=== PATIENT | male | born 1965 | race Caucasian/White ===

== ENCOUNTER 2024-06-30 12:38 | Inpatient (IN) | payer OTHER ==
[2024-06-30 12:51] LABS: Glucose,Whole Blood 405 mg/dL (70-110)
[2024-06-30] MEDS: methylPREDNISolone SOD SUCCI 125 MG/2 ML VIAL IM ONE (12:52)
[2024-06-30] MEDS: ONDANSETRON 4 MG/2 ML VIAL IVP STA (12:52)
[2024-06-30] MEDS: IPRATROPIUM-ALBUTEROL 3 ML NEB INHALATION STA (12:57)
--- NOTE | 2024-06-30 13:00 | XR ---
EXAMINATION TYPE: XR chest 1V DATE OF EXAM: 06/30/2024 COMPARISON: NONE CLINICAL INDICATION: Male, 59 years old with shortness of breath, history of dyspnea; TECHNIQUE: Single frontal view of the chest is obtained. FINDINGS: Heart mildly enlarged. Diffuse interstitial and hazy bilateral airspace opacities. No sizable pleural effusion on the frontal view. IMPRESSION: Consider CHF with patchy pulmonary edema. [facility], Workstation: [facility], 06/30/2024 12:57 PM
[2024-06-30 13:04] LABS: ABG Base Excess -6.3 mmol/L; ABG HCO3 26 mmol/L (21-25); ABG Oxygen Saturation 99.9 % (94-97); ABG PO2 397 mmHg (83-108); ABG TCO2 28 mmol/L (19-24); Allen Test Performed? Yes
[2024-06-30 13:12] LABS: ABG PCO2 81 mmHg (35-45); ABG PH 7.11 (7.35-7.45)
[2024-06-30] MEDS: FUROSEMIDE 10 MG/ML 4 ML VIAL IV STA (13:15)
[2024-06-30 13:26] LABS: HCT 52.8 % (39.0-53.0); HGB 17.5 gm/dL (13.0-17.5); Hypochromasia Slight; MCH 31.8 pg (25.0-35.0); MCHC 33.3 g/dL (31.0-37.0); MCV 95.5 fL (80.0-100.0); Mean Platelet Volume 8.5; Platelet Count 450 k/uL (150-450); RBC 5.53 m/uL (4.30-5.90); RDW 13.7 % (11.5-15.5); WBC 13.6 k/uL (3.8-10.6)
--- NOTE | 2024-06-30 13:30 | P.HPIM ---
History of Present Illness 59-year-old male came in with complaints of shortness of breath going on for last few days along with orthopnea. Patient is morbidly obese denied any fever chills chest x-ray was done which is consistent with pulmonary edema. I do not have any other labs available ABGs consistent with hypercapnic respiratory failure patient is presently on BiPAP patient has pH of 7.11 pCO2 of 81 patient pCO2 is high as he is on BiPAP and his ABG is probably on BiPAP patient blood sugars are high as well other labs are still pending at this time. REVIEW OF SYSTEMS: All other systems are negative except those mentioned in the HPI PHYSICAL EXAMINATION: GENERAL: The patient is alert and oriented x3, morbidly obese, on BiPAP is in respiratory distress HEENT: Pupils are round and equally reacting to light. EOMI. No scleral icterus. No conjunctival pallor. Normocephalic, atraumatic. No pharyngeal erythema. No thyromegaly. CARDIOVASCULAR: S1 and S2 present. No murmurs, rubs, or gallops. PULMONARY: Chest is clear to auscultation, no wheezing or crackles. ABDOMEN: Soft, nontender, nondistended, normoactive bowel sounds. No palpable organomegaly. MUSCULOSKELETAL: No joint swelling or deformity. EXTREMITIES: No cyanosis, clubbing, patient has extensive bilateral pitting pedal edema NEUROLOGICAL: Gross neurological examination did not reveal any focal deficits. SKIN: No rashes. Assessment and plan -Acute hypercapnic respiratory failure probably secondary to obesity hypoventilation syndrome patient is on BiPAP which will be continued. -Acute hypoxic respiratory failure: Secondary to congestive heart failure with acute exacerbation I do not have any previous echocardiogram available. Patient will be started on IV Lasix will obtain a proBNP if that is elevated we will obtain an echocardiogram still awaiting some labs -Type 2 diabetes mellitus uncontrolled elevated blood sugars patient will be resumed on home regimen if appropriate along with sliding scale insulin. -Diabetic neuropathy -Hypertension -Hyperlipidemia DVT prophylaxis: Will be started on pharmacological DVT prophylaxis once the lab data is available Past Medical History Past Medical History: Atrial Fibrillation, Diabetes Mellitus, Hypertension Past Surgical History: No Surgical Hx Reported Past Psychological History: No Psychological Hx Reported Smoking Status: Never smoker Past Alcohol Use History: None Reported Past Drug Use History: None Reported Medications and Allergies Home Medications Medication Instructions Recorded Confirmed Type Aspirin EC [Ecotrin Low Dose] 81 mg PO DAILY 06/30/24 06/30/24 History Atorvastatin [Lipitor] 20 mg PO DAILY 06/30/24 06/30/24 History Cholecalciferol (Vitamin D3) 1,250 mcg PO Q7D 06/30/24 06/30/24 History [Vitamin D3 (1250 Mcg = 50,000 Iu)] Dulaglutide [Trulicity] 0.75 mg SQ Q7D 06/30/24 06/30/24 History Gabapentin [Neurontin] 300 mg PO DAILY 06/30/24 06/30/24 History Insulin Glargine,Hum.rec.anlog 40 units SQ BID 06/30/24 06/30/24 History [Lantus Solostar Pen] Loratadine [Claritin] 10 mg PO DAILY 06/30/24 06/30/24 History Losartan [Cozaar] 25 mg PO DAILY 06/30/24 06/30/24 History Pioglitazone [Actos] 15 mg PO DAILY 06/30/24 06/30/24 History atenoloL [Tenormin] 25 mg PO DAILY 06/30/24 06/30/24 History hydroCHLOROthiazide [Hydrodiuril] 25 mg PO DAILY 06/30/24 06/30/24 History metFORMIN HCL ER [Glucophage XR] 1,000 mg PO BID 06/30/24 06/30/24 History Allergies Allergy/AdvReac Type Severity Reaction Status Date / Time No Known Allergies Allergy Verified 06/30/24 12:48 Physical Exam Vitals: Vital Signs Temp Pulse Resp BP Pulse Ox FiO2 06/30/24 13:22 115 H 32 H 170/112 99 06/30/24 13:13 116 H 24 06/30/24 13:00 121 H 26 H 163/82 98 06/30/24 12:58 125 H 34 H 06/30/24 12:49 100 06/30/24 12:46 100 06/30/24 12:44 97 F L 131 H 36 H 160/103 95 Intake and Output 06/29/24 06/30/24 06/30/24 22:59 06:59 14:59 Other: Weight 151.953 kg Results CBC & Chem 7: 06/30/24 13:00 Labs: Abnormal Lab Results - Last 24 Hours (Table) 01/29/25 01/29/25 01/29/25 Range/Units 12:49 13:00 13:00 WBC 13.6 H (3.8-10.6) k/uL ABG pH 7.11 L* (7.35-7.45) ABG pCO2 81 H* (35-45) mmHg ABG pO2 397 H (83-108) mmHg ABG HCO3 26 H (21-25) mmol/L ABG Total CO2 28 H (19-24) mmol/L ABG O2 Saturation 99.9 H (94-97) % POC Glucose (mg/dL) 405 H (70-110) mg/dL
--- NOTE | 2024-06-30 13:36 | ED ---
General Adult HPI - General Chief complaint: Shortness of Breath Stated complaint: FELY Time Seen by Provider: 06/30/24 12:38 Source: patient, EMS, RN notes reviewed, old records reviewed Mode of arrival: EMS Limitations: no limitations - History of Present Illness Initial comments: Patient is a 59-year-old male who presents emergency department for shortness of breath. Has a history of hypertension and diabetes. Patient does not frequent our hospital. Apparently patient was at home when he was complaining of shortness of breath. He called EMS. Was extremely dyspneic. Saturating in the 70%'s with EMS. When he arrives, he is breathing through the CPAP mask and is unable to provide any history due to his increased work of breathing and you seem somewhat fatigued. He was then immediately placed on BiPAP. After 5 minutes on BiPAP, patient's breathing was improved and he was able to speak. He is not confused. Alert and oriented x 4. States he began having worsening sudden shortness of breath earlier today. Progressively got worse. He has noticed over the past few weeks he has had worsening lower extremity swelling as well. Also worsening exertional dyspnea. Also worsening orthopnea. No history of congestive heart failure. No chest pain. No abdominal pain, nausea, vomiting. Endorses a cough with some mild production. Denies any sick contacts. Presents for further evaluation at this time. - Related Data Home Medications Medication Instructions Recorded Confirmed Aspirin EC [Ecotrin Low Dose] 81 mg PO DAILY 06/30/24 06/30/24 Atorvastatin [Lipitor] 20 mg PO DAILY 06/30/24 06/30/24 Cholecalciferol (Vitamin D3) 1,250 mcg PO Q7D 06/30/24 06/30/24 [Vitamin D3 (1250 Mcg = 50,000 Iu)] Dulaglutide [Trulicity] 0.75 mg SQ Q7D 06/30/24 06/30/24 Gabapentin [Neurontin] 300 mg PO DAILY 06/30/24 06/30/24 Insulin Glargine,Hum.rec.anlog 40 units SQ BID 06/30/24 06/30/24 [Lantus Solostar Pen] Loratadine [Claritin] 10 mg PO DAILY 06/30/24 06/30/24 Losartan [Cozaar] 25 mg PO DAILY 06/30/24 06/30/24 Pioglitazone [Actos] 15 mg PO DAILY 06/30/24 06/30/24 atenoloL [Tenormin] 25 mg PO DAILY 06/30/24 06/30/24 hydroCHLOROthiazide [Hydrodiuril] 25 mg PO DAILY 06/30/24 06/30/24 metFORMIN HCL ER [Glucophage XR] 1,000 mg PO BID 06/30/24 06/30/24 Allergies Allergy/AdvReac Type Severity Reaction Status Date / Time No Known Allergies Allergy Verified 06/30/24 12:48 Review of Systems ROS Statement: Those systems with pertinent positive or pertinent negative responses have been documented in the HPI. Review of Systems: CONST: Denies fever EYES: Denies blurry vision ENT: Denies nasal congestion C/V: Denies Chest pain RESP: Endorses dyspnea GI: Denies abdominal pain : Denies dysuria SKIN: Denies rash. MSK: Denies joint pain. NEURO: Denies headache ROS Other: All systems not noted in ROS Statement are negative. Past Medical History Past Medical History: Atrial Fibrillation, Diabetes Mellitus, Hypertension Past Surgical History: No Surgical Hx Reported Past Psychological History: No Psychological Hx Reported Smoking Status: Never smoker Past Alcohol Use History: None Reported Past Drug Use History: None Reported General Exam - General Exam Comments Initial Comments: General: No respiratory distress. HEAD: Normal with no signs of head trauma. EYES: PERRLA, EOMI, conjunctiva normal, no discharge. ENT: Hearing grossly intact, normal oropharynx.. RESPIRATORY: Some mildly coarse breath sounds bilaterally with maybe some slight wheezing. Hypoxic with increased work of breathing. C/V: Tachycardic with a regular rhythm. S1 and S2 auscultated. Significant bilateral lower extremity peripheral edema. Peripheral pulses are 2+ intact throughout. ABD: Abd is soft, nontender, nondistended EXT: Normal range of motion, no obvious deformity. Patient has a right ankle monitor. SKIN: No rashes or lesions observed on exposed skin. NEURO: Alert and oriented x 4. No focal deficits. GCS of 15. Limitations: no limitations Course Vital Signs 06/30/24 06/30/24 06/30/24 12:44 12:46 12:49 Temperature 97 F L Pulse Rate 131 H Respiratory 36 H Rate Blood Pressure 160/103 O2 Sat by Pulse 95 Oximetry Fraction of 100 100 Inspired Oxygen (FIO2) 06/30/24 06/30/2425 12:58 13:00 13:13 Temperature Pulse Rate 125 H 121 H 116 H Respiratory 34 H 26 H 24 Rate Blood Pressure 163/82 O2 Sat by Pulse 98 Oximetry Fraction of Inspired Oxygen (FIO2) 06/30/24 06/30/24 06/30/24 13:22 15:08 15:09 Temperature Pulse Rate 115 H 108 H Respiratory 32 H 26 H Rate Blood Pressure 170/112 155/71 O2 Sat by Pulse 99 97 Oximetry Fraction of 60 Inspired Oxygen (FIO2) 06/30/24 06/30/24 15:30 16:30 Temperature Pulse Rate 99 82 Respiratory 25 H 18 Rate Blood Pressure 155/71 155/95 O2 Sat by Pulse 99 97 Oximetry Fraction of Inspired Oxygen (FIO2) Medical Decision Making - Medical Decision Making Was pt. sent in by a medical professional or institution (, PA, MANAGER OF PRODUCT, urgent care, hospital, or longterm...) When possible be specific @ -No Did you speak to anyone other than the patient for history (EMS, parent, family, police, friend...)? What history was obtained from this source @ -No Did you review nursing and triage notes (agree or disagree)? Why? @ -I reviewed and agree with nursing and triage notes Were old charts reviewed (outside hosp., previous admission, EMS record, old EKG, old radiological studies, urgent care reports/EKG's, longterm records)? Report findings @ -Reviewed medication list from pharmacy. Differential Diagnosis (chest pain, altered mental status, abdominal pain women, abdominal pain men, vaginal bleeding, weakness, fever, dyspnea, syncope, headache, dizziness, GI bleed, back pain, seizure, CVA, palpatations, mental health, musculoskeletal)? @ -Differential Dyspnea: Coronary syndrome, arrhythmia, tamponade, asthma, COPD, pulmonary embolism, pneumonia, pneumothorax, pulmonary effusion, anaphylaxis, diabetic ketoacidosis, flailed chest, pulmonary contusion, diaphragmatic rupture, anemia, neuromuscular, this is not meant to be an all-inclusive list. EKG interpreted by me (3pts min.). @ -As above X-rays interpreted by me (1pt min.). @ -Chest x-ray shows bilateral pulmonary vascular congestion. CT interpreted by me (1pt min.). @ -CT PE negative for pulmonary embolism. U/S interpreted by me (1pt. min.). @ -None done What testing was considered but not performed or refused? (CT, X-rays, U/S, labs)? Why? @ -None What meds were considered but not given or refused? Why? @ -None Did you discuss the management of the patient with other professionals (professionals i.e. , PA, MANAGER OF PRODUCT, lab, RT, psych nurse, logging worker, customer service technician, teacher, chief accounting officer, corrections caseworker)? Give summary @ -Discussed case with Dr. Rodgers ICU who accepted the patient was in agreement the plan. Discussed the case with admitting team, city call Dr. Aguilar after the admission. Was smoking cessation discussed for >3mins.? @ -No Was critical care preformed (if so, how long)? @ -Yes, 41-minute Were there social determinants of health that impacted care today? How? (Homelessness, low income, unemployed, alcoholism, drug addiction, transportation, low edu. Level, literacy, decrease access to med. care, fpc, rehab)? @ -No Was there de-escalation of care discussed even if they declined (Discuss DNR or withdrawal of care, Hospice)? DNR status @ -No What co-morbidities impacted this encounter? (DM, HTN, Smoking, COPD, CAD, Cancer, CVA, ARF, Chemo, Hep., AIDS, mental health diagnosis, sleep apnea, morbid obesity)? @ -Hypertension, diabetes Was patient admitted / discharged? Hospital course, mention meds given and route, prescriptions, significant lab abnormalities, going to OR and other pertinent info. @ -Patient presents with hypoxic respiratory failure that seems to be acute. Patient states it suddenly got worse today. Clinically he is presenting with his CHF exacerbation. Was immediately transitioned to BiPAP which improved the patient's respiratory status as well as mental status as he was extremely short of breath and unable to communicate but now he has able to communicate appropriately. We will obtain cardiopulmonary workup. Will continue with BiPAP. Initially upon presentation as we had no history of the patient he did have some mild wheezing and was administered IV steroids as well as breathing treatment. 1 view chest x-ray revealed bilateral pulmonary vascular congestion, making CHF more likely for the patient. We will obtain cardiopulmonary workup. EKG shows sinus tachycardia with no obvious acute process otherwise.Chest x-ray shows pulmonary vascular congestion concerning for CHF history of above. Laboratory studies returned remarkable for mild leukocytosis of 13 which is likely reactive. Patient's ABG does show hypercapnic respiratory failure with a pCO2 of 81 and a pH of 7.11. Lactic acid is elevated to 4.8. Troponin is elevated to 0.062, likely secondary to the prolonged hypoxia. BNP is elevated for the patient at 1250. Viral swabs negative. D-dimer is elevated. CT PE was ordered and was negative for pulmonary embolism. I discussed the case with ICU, Dr. Rodgers who accept the patient to the ICU. I discussed the case with admitting team, Dr. Aguilar who is in agreement the plan. Patient started on IV Lasix therapy for CHF which is new onset. Echo ordered. Patient given aspirin for the elevated troponin. Patient was in agreement this plan. He is doing improved at this time, work of breathing is improved as it is patient's hypoxia. Undiagnosed new problem with uncertain prognosis? @ -No Drug Therapy requiring intensive monitoring for toxicity (Heparin, Nitro, Insulin, Cardizem)? @ -No Were any procedures done? @ -No Diagnosis/symptom? @ -Acute hypoxic, hypercapnic respiratory failure secondary to new onset CHF, elevated troponin Acute, or Chronic, or Acute on Chronic? @ -Acute Uncomplicated (without systemic symptoms) or Complicated (systemic symptoms)? @ -Complicated Side effects of treatment? @ -None Exacerbation, Progression, or Severe Exacerbation] @ -No Poses a threat to life or bodily function? @ -Yes - Lab Data Result diagrams: 06/30/24 13:00 06/30/24 13:00 Lab Results 06/30/24 06/30/24 06/30/24 Range/Units 12:49 13:00 13:00 WBC 13.6 H (3.8-10.6) k/uL RBC 5.53 (4.30-5.90) m/uL Hgb 17.5 (13.0-17.5) gm/dL Hct 52.8 (39.0-53.0) % MCV 95.5 (80.0-100.0) fL MCH 31.8 (25.0-35.0) pg MCHC 33.3 (31.0-37.0) g/dL RDW 13.7 (11.5-15.5) % Plt Count 450 (150-450) k/uL MPV 8.5 Neutrophils % (Manual) 49 % Band Neuts % (Manual) 1 % Lymphocytes % (Manual) 42 % Monocytes % (Manual) 7 % Eosinophils % (Manual) 3 % Neutrophils # (Manual) 6.80 (1.3-7.7) k/uL Lymphocytes # (Manual) 5.71 H (1.0-4.8) k/uL Monocytes # (Manual) 0.95 (0-1.0) k/uL Eosinophils # (Manual) 0.41 (0-0.7) k/uL Nucleated RBCs 0 (0-0) /100 WBC Manual Slide Review Performed Hypochromasia Slight PT 11.1 (10.0-12.5) sec INR 1.0 (<1.2) APTT 22.5 (22.0-30.0) sec D-Dimer 1.03 H (<0.60) mg/L FEU Sample Site ABG pH (7.35-7.45) ABG pCO2 (35-45) mmHg ABG pO2 (83-108) mmHg ABG HCO3 (21-25) mmol/L ABG Total CO2 (19-24) mmol/L ABG O2 Saturation (94-97) % ABG Base Excess mmol/L Mikie Test Hemoglobin (13.0-17.5) gm/dL FiO2 % Sodium (137-145) mmol/L Potassium (3.5-5.1) mmol/L Chloride (98-107) mmol/L Carbon Dioxide (22-30) mmol/L Anion Gap mmol/L BUN (9-20) mg/dL Creatinine (0.66-1.25) mg/dL Est GFR (CKD-EPI)AfAm (>60 ml/min/1.73 sqM) Est GFR (CKD-EPI)NonAf (>60 ml/min/1.73 sqM) Glucose (74-99) mg/dL POC Glucose (mg/dL) 405 H (70-110) mg/dL POC Glu [employer] Utility Worker ID Doretha Vanegas Lactic Ac Sepsis Rflx Plasma Lactic Acid Jaime (0.7-2.0) mmol/L Calcium (8.4-10.2) mg/dL Magnesium (1.6-2.3) mg/dL Total Bilirubin (0.2-1.3) mg/dL AST (17-59) U/L ALT (4-49) U/L Alkaline Phosphatase (38-126) U/L Troponin I (0.000-0.034) ng/mL NT-Pro-B Natriuret Pep pg/mL Total Protein (6.3-8.2) g/dL Albumin (3.5-5.0) g/dL Influenza Type A (PCR) (Not Detectd) Influenza Type B (PCR) (Not Detectd) RSV (PCR) (Not Detectd) SARS-CoV-2 (PCR) (Not Detectd) 06/30/24 06/30/24 06/30/24 Range/Units 13:00 13:00 13:00 WBC (3.8-10.6) k/uL RBC (4.30-5.90) m/uL Hgb (13.0-17.5) gm/dL Hct (39.0-53.0) % MCV (80.0-100.0) fL MCH (25.0-35.0) pg MCHC (31.0-37.0) g/dL RDW (11.5-15.5) % Plt Count (150-450) k/uL MPV Neutrophils % (Manual) % Band Neuts % (Manual) % Lymphocytes % (Manual) % Monocytes % (Manual) % Eosinophils % (Manual) % Neutrophils # (Manual) (1.3-7.7) k/uL Lymphocytes # (Manual) (1.0-4.8) k/uL Monocytes # (Manual) (0-1.0) k/uL Eosinophils # (Manual) (0-0.7) k/uL Nucleated RBCs (0-0) /100 WBC Manual Slide Review Hypochromasia PT (10.0-12.5) sec INR (<1.2) APTT (22.0-30.0) sec D-Dimer (<0.60) mg/L FEU Sample Site ABG pH (7.35-7.45) ABG pCO2 (35-45) mmHg ABG pO2 (83-108) mmHg ABG HCO3 (21-25) mmol/L ABG Total CO2 (19-24) mmol/L ABG O2 Saturation (94-97) % ABG Base Excess mmol/L Mikie Test Hemoglobin (13.0-17.5) gm/dL FiO2 % Sodium 136 L (137-145) mmol/L Potassium 4.2 (3.5-5.1) mmol/L Chloride 100 (98-107) mmol/L Carbon Dioxide 23 (22-30) mmol/L Anion Gap 13 mmol/L BUN 10 (9-20) mg/dL Creatinine 0.73 (0.66-1.25) mg/dL Est GFR (CKD-EPI)AfAm >90 (>60 ml/min/1.73 sqM) Est GFR (CKD-EPI)NonAf >90 (>60 ml/min/1.73 sqM) Glucose 485 H (74-99) mg/dL POC Glucose (mg/dL) (70-110) mg/dL POC Glu [employer] Utility Worker ID Lactic Ac Sepsis Rflx Plasma Lactic Acid Jaime 4.8 H* (0.7-2.0) mmol/L Calcium 8.6 (8.4-10.2) mg/dL Magnesium 1.7 (1.6-2.3) mg/dL Total Bilirubin 0.7 (0.2-1.3) mg/dL AST 44 (17-59) U/L ALT 36 (4-49) U/L Alkaline Phosphatase 105 (38-126) U/L Troponin I 0.062 H* (0.000-0.034) ng/mL NT-Pro-B Natriuret Pep 1250 pg/mL Total Protein 6.8 (6.3-8.2) g/dL Albumin 4.1 (3.5-5.0) g/dL Influenza Type A (PCR) (Not Detectd) Influenza Type B (PCR) (Not Detectd) RSV (PCR) (Not Detectd) SARS-CoV-2 (PCR) (Not Detectd) 06/30/24 06/30/24 06/30/24 Range/Units 13:00 13:00 13:39 WBC (3.8-10.6) k/uL RBC (4.30-5.90) m/uL Hgb (13.0-17.5) gm/dL Hct (39.0-53.0) % MCV (80.0-100.0) fL MCH (25.0-35.0) pg MCHC (31.0-37.0) g/dL RDW (11.5-15.5) % Plt Count (150-450) k/uL MPV Neutrophils % (Manual) % Band Neuts % (Manual) % Lymphocytes % (Manual) % Monocytes % (Manual) % Eosinophils % (Manual) % Neutrophils # (Manual) (1.3-7.7) k/uL Lymphocytes # (Manual) (1.0-4.8) k/uL Monocytes # (Manual) (0-1.0) k/uL Eosinophils # (Manual) (0-0.7) k/uL Nucleated RBCs (0-0) /100 WBC Manual Slide Review Hypochromasia PT (10.0-12.5) sec INR (<1.2) APTT (22.0-30.0) sec D-Dimer (<0.60) mg/L FEU Sample Site Right Radial ABG pH 7.11 L* (7.35-7.45) ABG pCO2 81 H* (35-45) mmHg ABG pO2 397 H (83-108) mmHg ABG HCO3 26 H (21-25) mmol/L ABG Total CO2 28 H (19-24) mmol/L ABG O2 Saturation 99.9 H (94-97) % ABG Base Excess -6.3 mmol/L Mikie Test Yes Hemoglobin 17.4 (13.0-17.5) gm/dL FiO2 100 % Sodium (137-145) mmol/L Potassium (3.5-5.1) mmol/L Chloride (98-107) mmol/L Carbon Dioxide (22-30) mmol/L Anion Gap mmol/L BUN (9-20) mg/dL Creatinine (0.66-1.25) mg/dL Est GFR (CKD-EPI)AfAm (>60 ml/min/1.73 sqM) Est GFR (CKD-EPI)NonAf (>60 ml/min/1.73 sqM) Glucose (74-99) mg/dL POC Glucose (mg/dL) (70-110) mg/dL POC Glu [employer] Utility Worker ID Lactic Ac Sepsis Rflx Y Plasma Lactic Acid Jaime (0.7-2.0) mmol/L Calcium (8.4-10.2) mg/dL Magnesium (1.6-2.3) mg/dL Total Bilirubin (0.2-1.3) mg/dL AST (17-59) U/L ALT (4-49) U/L Alkaline Phosphatase (38-126) U/L Troponin I (0.000-0.034) ng/mL NT-Pro-B Natriuret Pep pg/mL Total Protein (6.3-8.2) g/dL Albumin (3.5-5.0) g/dL Influenza Type A (PCR) Not Detected (Not Detectd) Influenza Type B (PCR) Not Detected (Not Detectd) RSV (PCR) Not Detected (Not Detectd) SARS-CoV-2 (PCR) Not Detected (Not Detectd) - EKG Data -: EKG Interpreted by Me EKG Comments: 12-lead Electrocardiogram Interpretation Note EKG was reviewed and interpreted by myself. 12-lead ECG performed at 1245 is interpreted by me as revealing tachycardia with PVCs at a rate of 130 beats per minute. Jones is normal. UT interval is 149 ms, QRS duration is 112 ms, QTc is 386 ms.. There were no ST or T wave abnormalities to suggest myocardial ischemia or injury. R wave progression across the precordium was mildly delayed. By my interpretation this EKG is non-diagnostic for acute ischemia. Critical Care Time Critical Care Time: Yes Total Critical Care Time: 41 Disposition Clinical Impression: Congestive heart failure, Hypercapnic respiratory failure, Hypoxic respiratory failure, Elevated troponin, BiPAP (biphasic positive airway pressure) dependence Disposition: ADMITTED IP TO THIS HOSP Condition: Serious Time of Disposition: 16:30
[2024-06-30 13:38] LABS: Partial Thromboplastin Time 22.5 sec (22.0-30.0); Prothrombin Time 11.1 sec (10.0-12.5)
[2024-06-30 13:40] LABS: ALT 36 U/L (4-49); AST 44 U/L (17-59); African American GFR (CKD) >90 (>60 ml/min/1.73 sqM); Albumin 4.1 g/dL (3.5-5.0); Alkaline Phosphatase 105 U/L (38-126); Anion Gap 13 mmol/L; Blood Urea Nitrogen 10 mg/dL (9-20); Calcium 8.6 mg/dL (8.4-10.2); Carbon Dioxide 23 mmol/L (22-30); Chloride 100 mmol/L (98-107); Glucose 485 mg/dL (74-99); Magnesium 1.7 mg/dL (1.6-2.3); Non-African American GFR(CKD) >90 (>60 ml/min/1.73 sqM); Potassium 4.2 mmol/L (3.5-5.1); Sodium 136 mmol/L (137-145); Total Bilirubin 0.7 mg/dL (0.2-1.3); Total Protein 6.8 g/dL (6.3-8.2)
[2024-06-30 13:47] LABS: NT-Pro-B-Type Natriuretic Pept 1250 pg/mL
[2024-06-30 13:53] LABS: Influenza A Not Detected (Not Detectd); Influenza B Not Detected (Not Detectd); RSV Not Detected (Not Detectd)
[2024-06-30 13:59] LABS: Band Neutrophils % 1 %; Eosinophils # (M) 0.41 k/uL (0-0.7); Lymphocytes # (M) 5.71 k/uL (1.0-4.8); Monocytes # (M) 0.95 k/uL (0-1.0); Neutrophils % (M) 49 %; Nucleated Red Blood Cells 0 /100 WBC (0-0); Total Cells Counted 200
[2024-06-30] MEDS: ASPIRIN 81 MG PO SCH (14:53)
[2024-06-30] MEDS: atenoloL 25 MG TAB PO SCH (14:58)
[2024-06-30] MEDS: ASPIRIN 81 MG PO STA (15:00)
--- NOTE | 2024-06-30 16:23 | CT ---
EXAMINATION TYPE: CT chest angio for PE DATE OF EXAM: 06/30/2024 COMPARISON: None CLINICAL INDICATION: Male, 59 years old with history of eval for PE; PHH, Elaluation for PE. Pt on Bi pap., SOB or PAIN TECHNIQUE: Ct angiogram of the chest performed with with IV Contrast, patient injected with 100 ml mL of Isovue 370. MIP images are created and reviewed. 3-D postprocessing was performed. CT DLP: 1279.[address] CTDI: mGy Automated exposure control for dose reduction was used. FINDINGS: There are multiple innumerable scattered groundglass opacities throughout both lungs raising the ques tion of pulmonary edema or possibly an infectious process such as COVID pneumonia.. There is a focal opacity in the left lower lobe posteriorly which could be secondary to atelectasis. There is no pleural effusion or pneumothorax. The great vessels chest are normal and is no mediastinal, hilar or axillary adenopathy. There are no filling defects within the pulmonary arterial circulation to suggest pulmonary embolism. Limited scanning through the upper abdomen reveals porcelain gallbladder and cholelithiasis. There are no focal osseous abnormalities. IMPRESSION: 1. No evidence of pulmonary embolism. 2. Scattered diffuse groundglass opacities raising the question of pulmonary edema or pneumonia, poss ibly COVID pneumonia. 3. Cholelithiasis and porcelain gallbladder [facility] [place], , 06/30/2024 4:21 PM
--- NOTE | 2024-06-30 16:45 | P.CNPUL ---
History of Present Illness Consult date: 06/30/24 Reason for consult: dyspnea History of present illness: This is a 59-year-old male patient, morbidly obese, known history of diabetes mellitus hypertension and hyperlipidemia, presents to the hospital because of acute worsening shortness of breath and the patient was found to be in acute pulmonary edema. The patient was significantly short of breath at the time of admission and immediately the patient was placed on a BiPAP. Initial blood gas while on the BiPAP showed a pH of 7.11 with a pCO2 of 81 and pO2 of 397 this was on FiO2 100% with pressures of 14/5. Noted the patient was quite hypertensive at time of admission, initial blood pressure was as high as 170/112. Subsequently, the pressure dropped. The patient was given IV Lasix with excellent diuresis. He seems to be much more comfortable at this point in time. He is able to communicate. His respiratory rate also improved while being on the BiPAP and current respiratory rate is in the mid 20s. No altered mentation. Awake and alert and communicating. Denies having any chest pain. His proBNP level was 1250. Troponin was 0.06. Electrolytes are all within normal limits. There was a cause of 13.6 with a hemoglobin 13.5 and a platelet count of 450. Denies having any chest pain. No pleurisy. No hemoptysis. He has developed increased lower extremity edema. He has been incarcerated for a total of 17 years and currently he is on parole. CT angiogram was also done and showed no evidence of any pulm embolism. There was scattered diffuse groundglass pulmonar y opacities consistent with pulmonary edema. 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 Echocardiogram was ordered. The patient is currently on IV Lasix. Review of Systems Constitutional: Reports weight gain Eyes: denies as per HPI, denies blurred vision, denies bulging eye, denies decreased vision, denies diplopia, denies discharge, denies dry eye, denies irritation, denies itching, denies pain, denies photophobia, denies loss of peripheral vision, denies loss of vision, denies tunnel vision/blind spots Ears: deny: decreased hearing, ear discharge, earache, tinnitus Ears, nose, mouth and throat: Reports as per HPI Breasts: absent: as per HPI, gynecomastia Cardiovascular: Reports decreased exercise tolerance, Reports dyspnea on exertion, Reports leg edema, Reports shortness of breath Respiratory: Reports as per HPI, Reports snoring Gastrointestinal: Reports as per HPI Genitourinary: Reports as per HPI Musculoskeletal: Reports as per HPI Musculoskeletal: bilateral: ankle swelling, absent: ankle pain, ankle stiffness, as per HPI, elbow pain, elbow stiffness, elbow swelling, foot pain, foot stiffness, foot swelling, hand pain, hand stiffness, hand swelling, hip pain, hip stiffness, hip swelling, knee pain, knee stiffness, knee swelling, shoulder pain, shoulder stiffness, shoulder swelling, wrist pain, wrist stiffness, wrist swelling Integumentary: Reports as per HPI Neurological: Reports as per HPI Psychiatric: Reports as per HPI Endocrine: Reports as per HPI Hematologic/Lymphatic: Reports as per HPI Allergic/Immunologic: Reports as per HPI Past Medical History Past Medical History: Diabetes Mellitus, Hyperlipidemia, Hypertension Past Surgical History: No Surgical Hx Reported Past Psychological History: No Psychological Hx Reported Smoking Status: Never smoker Past Alcohol Use History: None Reported Past Drug Use History: None Reported Medications and Allergies Home Medications Medication Instructions Recorded Confirmed Type Aspirin EC [Ecotrin Low Dose] 81 mg PO DAILY 06/30/24 06/30/24 History Atorvastatin [Lipitor] 20 mg PO DAILY 06/30/24 06/30/24 History Cholecalciferol (Vitamin D3) 1,250 mcg PO Q7D 06/30/24 06/30/24 History [Vitamin D3 (1250 Mcg = 50,000 Iu)] Dulaglutide [Trulicity] 0.75 mg SQ Q7D 06/30/24 06/30/24 History Gabapentin [Neurontin] 300 mg PO DAILY 06/30/24 06/30/24 History Insulin Glargine,Hum.rec.anlog 40 units SQ BID 06/30/24 06/30/24 History [Lantus Solostar Pen] Loratadine [Claritin] 10 mg PO DAILY 06/30/24 06/30/24 History Losartan [Cozaar] 25 mg PO DAILY 06/30/24 06/30/24 History Pioglitazone [Actos] 15 mg PO DAILY 06/30/24 06/30/24 History atenoloL [Tenormin] 25 mg PO DAILY 06/30/24 06/30/24 History hydroCHLOROthiazide [Hydrodiuril] 25 mg PO DAILY 06/30/24 06/30/24 History metFORMIN HCL ER [Glucophage XR] 1,000 mg PO BID 06/30/24 06/30/24 History Allergies Allergy/AdvReac Type Severity Reaction Status Date / Time No Known Allergies Allergy Verified 06/30/24 12:48 Physical Exam Vitals: Vital Signs Temp Pulse Resp BP Pulse Ox FiO2 06/30/24 15:09 60 06/30/24 15:08 108 H 26 H 155/71 97 06/30/24 13:22 115 H 32 H 170/112 99 06/30/24 13:13 116 H 24 06/30/24 13:00 121 H 26 H 163/82 98 06/30/24 12:58 125 H 34 H 06/30/24 12:49 100 06/30/24 12:46 100 06/30/24 12:44 97 F L 131 H 36 H 160/103 95 Intake and Output 06/30/24 06/30/24 06/30/24 06:59 14:59 22:59 Other: Weight 151.953 kg The patient morbidly obese, mild degree of respiratory stress while on a BiPAP. Able to tolerate the BiPAP reasonably well. No altered mentation. Head exam is unremarkable. No scleral icterus or corneal arcus noted. Neck is without jugular venous distension, thyromegaly, or carotid bruits. Carotid upstrokes are brisk bilaterally. Lungs diminished breath sound bilateral lung with bibasilar crackles. Cardiac exam reveals the PMI to be normally sized and situated. Rhythm is regular. First and second heart sounds normal. No murmurs, rubs or gallops. Abdominal exam reveals normal bowel sounds, no masses, no organomegaly and no aortic enlargement. Extremities are showing increased edema lower extremities bilaterally and both femoral and pedal pulses are normal. Examination of the skin revealed no evidence of significant rashes, suspicious appearing nevi or other concerning lesions. Neurologically, the patient is awake and alert and the patient does not have any focal neurological deficit. Cranial nerves are essentially intact. Results - Laboratory Findings CBC and BMP: 06/30/24 13:00 06/30/24 13:00 ABG ABG pH 7.11 (7.35-7.45) L* 06/30/24 13:00 ABG pCO2 81 mmHg (35-45) H* 06/30/24 13:00 ABG pO2 397 mmHg (83-108) H 06/30/24 13:00 ABG O2 Saturation 99.9 % (94-97) H 06/30/24 13:00 PT/INR, D-dimer PT 11.1 sec (10.0-12.5) 06/30/24 13:00 INR 1.0 (<1.2) 06/30/24 13:00 D-Dimer 1.03 mg/L FEU (<0.60) H 06/30/24 13:00 Abnormal lab findings: Abnormal Labs 06/30/24 06/30/24 06/30/24 12:49 13:00 13:00 WBC 13.6 H Lymphocytes # (Manual) 5.71 H D-Dimer 1.03 H ABG pH ABG pCO2 ABG pO2 ABG HCO3 ABG Total CO2 ABG O2 Saturation Sodium Glucose POC Glucose (mg/dL) 405 H Plasma Lactic Acid Jaime Troponin I 06/30/24 06/30/24 06/30/24 13:00 13:00 13:00 WBC Lymphocytes # (Manual) D-Dimer ABG pH ABG pCO2 ABG pO2 ABG HCO3 ABG Total CO2 ABG O2 Saturation Sodium 136 L Glucose 485 H POC Glucose (mg/dL) Plasma Lactic Acid Jaime 4.8 H* Troponin I 0.062 H* 06/30/24 13:00 WBC Lymphocytes # (Manual) D-Dimer ABG pH 7.11 L* ABG pCO2 81 H* ABG pO2 397 H ABG HCO3 26 H ABG Total CO2 28 H ABG O2 Saturation 99.9 H Sodium Glucose POC Glucose (mg/dL) Plasma Lactic Acid Jaime Troponin I Assessment and Plan Plan: Acute hypoxic/hypercapnic respiratory failure secondary to pulmonary edema. Currently on BiPAP. Chest x-ray was noted. CT angiogram was noted. Acute pulmonary edema, consider underlying hypertensive heart disease and diastolic heart failure. Acute hypertensive emergency, blood pressure under better control for now. Morbid obesity Features of obstructive sleep apnea. No significant metabolic alkalosis to indicate chronic hypercapnic respiratory failure and respiratory acidosis essentially acute Diabetes mellitus type 2 Diabetic neuropathy Hypertension Hyperlipidemia Sinus tachycardia Plan Keep the patient on BiPAP at the same setting for now Gradual wean down FiO2 to maintain saturation above 90% IV Lasix 40 mg every 12 hours Lovenox for DVT prophylaxis Serial troponins Echocardiogram start patient on Levemir insulin Monitor blood sugars Continue metoprolol 25 mg p.o. daily Cardiology consultation Will continue to follow
[2024-06-30] MEDS ORDERED: NALOXONE 0.4 MG/ML 1 ML VIAL IV PRN (16:49)
[2024-06-30] MEDS: ENOXAPARIN 40 MG/0.4 ML SYRINGE SQ SCH (16:53)
[2024-06-30] MEDS: PANTOPRAZOLE 40 MG TABLET PO SCH (16:54)
[2024-06-30 17:27] LABS: Glucose,Whole Blood 379 mg/dL (70-110)
[2024-06-30] MEDS: INSULIN ASPART (NovoLOG) 100 UNIT/ML VIAL SQ SCH (18:08)
[2024-06-30] MEDS: FUROSEMIDE 10 MG/ML 4 ML VIAL IV SCH (20:26)
[2024-06-30] MEDS: INSULIN DETEMIR (LEVEMIR) 100 UNIT/ML SYR SQ SCH (21:37)
[2024-06-30 22:44] LABS: Appearance,Urine Clear (Clear); Bilirubin,Urine Negative (Negative); Blood,Urine Large (Negative); Color,Urine Colorless; Glucose,Urine (UA) 4+ (Negative); Ketones,Urine Negative (Negative); Leukocyte Esterase,Urine Negative (Negative); Mucus,Urine Rare /hpf; Nitrite,Urine Negative (Negative); Protein,Urine Trace (Negative); RBC,Urine 10 /hpf (0-5); Specific Gravity,Urine 1.012 (1.001-1.035); Squamous Epithelial Cell,Urine <1 /hpf (0-4); Urobilinogen,Urine <2.0 mg/dL (<2.0); WBC,Urine 2 /hpf (0-5)
[2024-07-01 07:28] LABS: Basophils % (A) 0 %; Eosinophils % (A) 0 %; HCT 47.2 % (39.0-53.0); HGB 15.1 gm/dL (13.0-17.5); Hypochromasia Slight; Lymphocytes # (A) 1.5 k/uL (1.0-4.8); Lymphocytes % (A) 13 %; MCH 29.6 pg (25.0-35.0); MCHC 31.9 g/dL (31.0-37.0); MCV 92.6 fL (80.0-100.0); Mean Platelet Volume 8.3; Monocytes # (A) 0.7 k/uL (0-1.0); Monocytes % (A) 6 %; Neutrophils # (A) 9.5 k/uL (1.3-7.7); Neutrophils % (A) 81 %; Platelet Count 301 k/uL (150-450); RDW 13.4 % (11.5-15.5); WBC 11.8 k/uL (3.8-10.6)
[2024-07-01 07:38] LABS: Glucose,Whole Blood 256 mg/dL (70-110)
--- NOTE | 2024-07-01 08:22 | P.PN ---
Subjective Progress Note Date: 07/01/24 This is a 59-year-old male patient, morbidly obese, known history of diabetes mellitus hypertension and hyperlipidemia, presents to the hospital because of acute worsening shortness of breath and the patient was found to be in acute pulmonary edema. The patient was significantly short of breath at the time of admission and immediately the patient was placed on a BiPAP. Initial blood gas while on the BiPAP showed a pH of 7.11 with a pCO2 of 81 and pO2 of 397 this was on FiO2 100% with pressures of 14/5. Noted the patient was quite hypertensive at time of admission, initial blood pressure was as high as 170/112. Subsequently, the pressure dropped. The patient was given IV Lasix with excellent diuresis. He seems to be much more comfortable at this point in time. He is able to communicate. His respiratory rate also improved while being on the BiPAP and current respiratory rate is in the mid 20s. No altered mentation. Awake and alert and communicating. Denies having any chest pain. His proBNP level was 1250. Troponin was 0.06. Electrolytes are all within normal limits. There was a cause of 13.6 with a hemoglobin 13.5 and a platelet count of 450. Denies having any chest pain. No pleurisy. No hemoptysis. He has developed increased lower extremity edema. He has been incarcerated for a total of 17 years and currently he is on parole. CT angiogram was also done and showed no evidence of any pulm embolism. There was scattered diffuse groundglass pulmonary opacities consistent with pulmonary edema. 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 Echocardiogram was ordered. The patient is currently on IV Lasix. On 07/01/2024, the patient is being seen in follow-up. The patient was awaiting an ICU transfer due to lack of bed availability's, the patient stayed in the emergency. Overnight, he improved considerably and currently is off the BiPAP and he has been transitioned to 2 L of oxygen by nasal cannula. Breathing is nonlabored. He is calm and comfortable awake and alert and communicating. He has produced good urine output as the patient was receiving Lasix 40 mg IV every 12 hours. Labs from today shows a white cell count of 11, hemoglobin 15.1 and a platelet count of 301. Lactic acid level is dropped to 1.6. Blood sugars at 256. The troponins were monitored and the troponin max at 0.37. Echocardiogram is still pending for now. Remains on Lasix 40 mg IV every 12 hours. Remains on Lovenox DVT prophylaxis. Remains on Levemir insulin 40 units twice daily and a sliding scale coverage. Blood pressures under much better control for now and the patient is to be seen by cardiology. Objective - Vital Signs Vital signs: Vital Signs Temp 97 F L 06/30/24 12:44 Pulse 61 07/01/24 06:00 Resp 18 07/01/24 06:00 BP 139/81 07/01/24 06:00 Pulse Ox 98 07/01/24 06:00 FiO2 60 06/30/24 15:09 Intake & Output 06/30/24 07/01/24 07/01/24 18:59 06:59 18:59 Weight 151.953 kg - Exam The patient morbidly obese, calm and comfortable only on 2 L of oxygen by nasal cannula Head exam is unremarkable. No scleral icterus or corneal arcus noted. Neck is without jugular venous distension, thyromegaly, or carotid bruits. Carotid upstrokes are brisk bilaterally. Lungs diminished breath sound bilateral lung with bibasilar crackles. Cardiac exam reveals the PMI to be normally sized and situated. Rhythm is re gular. First and second heart sounds normal. No murmurs, rubs or gallops. Abdominal exam reveals normal bowel sounds, no masses, no organomegaly and no aortic enlargement. Extremities are showing increased edema lower extremities bilaterally and both femoral and pedal pulses are normal. Examination of the skin revealed no evidence of significant rashes, suspicious appearing nevi or other concerning lesions. Neurologically, the patient is awake and alert and the patient does not have any focal neurological deficit. Cranial nerves are essentially intact. - Labs CBC & Chem 7: 07/01/24 07:06 06/30/24 13:00 Labs: Abnormal Lab Results - Last 24 Hours (Table) 06/30/24 06/30/24 06/30/24 Range/Units 12:49 13:00 13:00 WBC 13.6 H (3.8-10.6) k/uL Neutrophils # (1.3-7.7) k/uL Lymphocytes # (Manual) 5.71 H (1.0-4.8) k/uL D-Dimer 1.03 H (<0.60) mg/L FEU ABG pH (7.35-7.45) ABG pCO2 (35-45) mmHg ABG pO2 (83-108) mmHg ABG HCO3 (21-25) mmol/L ABG Total CO2 (19-24) mmol/L ABG O2 Saturation (94-97) % Sodium (137-145) mmol/L Glucose (74-99) mg/dL POC Glucose (mg/dL) 405 H (70-110) mg/dL Plasma Lactic Acid Jaime (0.7-2.0) mmol/L Troponin I (0.000-0.034) ng/mL Urine Protein (Negative) Urine Glucose (UA) (Negative) Urine Blood (Negative) Urine RBC (0-5) /hpf Urine Mucus (None) /hpf 06/30/24 06/30/24 06/30/24 Range/Units 13:00 13:00 13:00 WBC (3.8-10.6) k/uL Neutrophils # (1.3-7.7) k/uL Lymphocytes # (Manual) (1.0-4.8) k/uL D-Dimer (<0.60) mg/L FEU ABG pH (7.35-7.45) ABG pCO2 (35-45) mmHg ABG pO2 (83-108) mmHg ABG HCO3 (21-25) mmol/L ABG Total CO2 (19-24) mmol/L ABG O2 Saturation (94-97) % Sodium 136 L (137-145) mmol/L Glucose 485 H (74-99) mg/dL POC Glucose (mg/dL) (70-110) mg/dL Plasma Lactic Acid Jaime 4.8 H* (0.7-2.0) mmol/L Troponin I 0.062 H* (0.000-0.034) ng/mL Urine Protein (Negative) Urine Glucose (UA) (Negative) Urine Blood (Negative) Urine RBC (0-5) /hpf Urine Mucus (None) /hpf 06/30/24 06/30/24 06/30/24 Range/Units 13:00 16:51 17:25 WBC (3.8-10.6) k/uL Neutrophils # (1.3-7.7) k/uL Lymphocytes # (Manual) (1.0-4.8) k/uL D-Dimer (<0.60) mg/L FEU ABG pH 7.11 L* (7.35-7.45) ABG pCO2 81 H* (35-45) mmHg ABG pO2 397 H (83-108) mmHg ABG HCO3 26 H (21-25) mmol/L ABG Total CO2 28 H (19-24) mmol/L ABG O2 Saturation 99.9 H (94-97) % Sodium (137-145) mmol/L Glucose (74-99) mg/dL POC Glucose (mg/dL) 379 H (70-110) mg/dL Plasma Lactic Acid Jaime 3.0 H* (0.7-2.0) mmol/L Troponin I (0.000-0.034) ng/mL Urine Protein (Negative) Urine Glucose (UA) (Negative) Urine Blood (Negative) Urine RBC (0-5) /hpf Urine Mucus (None) /hpf 06/30/24 06/30/24 06/30/24 Range/Units 18:06 20:22 20:22 WBC (3.8-10.6) k/uL Neutrophils # (1.3-7.7) k/uL Lymphocytes # (Manual) (1.0-4.8) k/uL D-Dimer (<0.60) mg/L FEU ABG pH (7.35-7.45) ABG pCO2 (35-45) mmHg ABG pO2 (83-108) mmHg ABG HCO3 (21-25) mmol/L ABG Total CO2 (19-24) mmol/L ABG O2 Saturation (94-97) % Sodium (137-145) mmol/L Glucose (74-99) mg/dL POC Glucose (mg/dL) (70-110) mg/dL Plasma Lactic Acid Jaime 2.4 H* (0.7-2.0) mmol/L Troponin I 0.312 H* 0.379 H* (0.000-0.034) ng/mL Urine Protein (Negative) Urine Glucose (UA) (Negative) Urine Blood (Negative) Urine RBC (0-5) /hpf Urine Mucus (None) /hpf 06/30/24 06/30/24 07/01/24 Range/Units 21:39 23:52 07:06 WBC 11.8 H (3.8-10.6) k/uL Neutrophils # 9.5 H (1.3-7.7) k/uL Lymphocytes # (Manual) (1.0-4.8) k/uL D-Dimer (<0.60) mg/L FEU ABG pH (7.35-7.45) ABG pCO2 (35-45) mmHg ABG pO2 (83-108) mmHg ABG HCO3 (21-25) mmol/L ABG Total CO2 (19-24) mmol/L ABG O2 Saturation (94-97) % Sodium (137-145) mmol/L Glucose (74-99) mg/dL POC Glucose (mg/dL) (70-110) mg/dL Plasma Lactic Acid Jaime 2.4 H* (0.7-2.0) mmol/L Troponin I (0.000-0.034) ng/mL Urine Protein Trace H (Negative) Urine Glucose (UA) 4+ H (Negative) Urine Blood Large H (Negative) Urine RBC 10 H (0-5) /hpf Urine Mucus Rare H (None) /hpf 07/01/24 Range/Units 07:36 WBC (3.8-10.6) k/uL Neutrophils # (1.3-7.7) k/uL Lymphocytes # (Manual) (1.0-4.8) k/uL D-Dimer (<0.60) mg/L FEU ABG pH (7.35-7.45) ABG pCO2 (35-45) mmHg ABG pO2 (83-108) mmHg ABG HCO3 (21-25) mmol/L ABG Total CO2 (19-24) mmol/L ABG O2 Saturation (94-97) % Sodium (137-145) mmol/L Glucose (74-99) mg/dL POC Glucose (mg/dL) 256 H (70-110) mg/dL Plasma Lactic Acid Jaime (0.7-2.0) mmol/L Troponin I (0.000-0.034) ng/mL Urine Protein (Negative) Urine Glucose (UA) (Negative) Urine Blood (Negative) Urine RBC (0-5) /hpf Urine Mucus (None) /hpf Assessment and Plan Plan: Acute hypoxic/hypercapnic respiratory failure secondary to pulmonary edema. Patient improved. Blood pressures under better control. The patient diuresed and the patient is currently on 2 L of oxygen nasal cannula. Acute pulmonary edema, consider underlying hypertensive heart disease and diastolic heart failure. Awaiting echocardiogram Acute NSTEMI versus myocardial type II ischemia secondary to above-mentioned comorbidities Acute hypertensive emergency, blood pressure under better control for now. Morbid obesity Features of obstructive sleep apnea. No significant metabolic alkalosis to indicate chronic hypercapnic respiratory failure and respiratory acidosis essentially acute Diabetes mellitus type 2 Diabetic neuropathy Hypertension Hyperlipidemia Sinus tachycardia Plan Keep the patient off the BiPAP and the patient has been transition to 2 L of O2 nasal cannula Repeat chest x-ray today Continue IV Lasix 40 mg every 12 hours Lovenox for DVT prophylaxis Serial troponins has been noted and a cardiology consult was obtained, pending echocardiogram Continue Levemir insulin Monitor blood sugars Continue atenolol 25 mg p.o. daily No need for ICU transfer and the patient can go to 3 S. Will continue to follow
[2024-07-01] MEDS: ATORVASTATIN 20 MG TAB PO SCH (08:24)
--- NOTE | 2024-07-01 08:37 | XR ---
EXAMINATION TYPE: XR chest 1V DATE OF EXAM: 07/01/2024 COMPARISON: 06/30/2024 CLINICAL INDICATION: Male, 59 years old with history of Follow-up pulmonary edema; TECHNIQUE: Single frontal view of the chest is obtained. FINDINGS: Heart borderline enlarged. Hazy bilateral space opacities show considerable improvement. Residual int erstitial prominence. No pleural effusion. IMPRESSION: Considerable improvement in the pulmonary edema. Residual mild pulmonary vascular conges tion. [facility], Workstation: [facility], 07/01/2024 8:35 AM
[2024-07-01 10:01] LABS: ALT 31 U/L (4-49); AST 21 U/L (17-59); African American GFR (CKD) >90 (>60 ml/min/1.73 sqM); Albumin 3.5 g/dL (3.5-5.0); Alkaline Phosphatase 73 U/L (38-126); Anion Gap 6 mmol/L; Blood Urea Nitrogen 15 mg/dL (9-20); Calcium 9.4 mg/dL (8.4-10.2); Carbon Dioxide 35 mmol/L (22-30); Chloride 94 mmol/L (98-107); Glucose 227 mg/dL (74-99); Magnesium 1.7 mg/dL (1.6-2.3); Non-African American GFR(CKD) >90 (>60 ml/min/1.73 sqM); Potassium 4.3 mmol/L (3.5-5.1); Sodium 135 mmol/L (137-145); Total Bilirubin 0.6 mg/dL (0.2-1.3)
--- NOTE | 2024-07-01 11:16 | CA ---
Transthoracic Echo Report Name: Samuel Andrade Age: 59 Gender: M : 1965 Exam Date: 06/30/2024 15:39 Exam Location: [facility] Ht (in): 67 Wt (lb): 335 Ordering Physician: Mecca Huitron Attending/Referring Phys: Wheel Filler Angelica Vásquez RDCS Procedure CPT: Indications: resp failure Cardiac Hx: Technical Quality: Poor, Very technically difficult study Contrast 1: Definity Total Dose (mL): 2 Contrast 2: Total Dose (mL): MEASUREMENTS (Male / Female) Normal Values 2D ECHO LA Volume 53.8 cm??? 18 - 58 / 22 - 52 cm??? LA Volume Index 19.4 cm???/m??? 16 - 28 cm???/m??? M-MODE Aortic Root Diameter MM 3.8 cm LA Systolic Diameter MM 2.6 cm LA Ao Ratio MM 0.7 AV Cusp Separation MM 2.1 cm DOPPLER AV Peak Velocity 117.2 cm/s AV Peak Gradient 5.5 mmHg AV Mean Velocity 86.9 cm/s AV Mean Gradient 3.3 mmHg AV Velocity Time Integral 24.8 cm LVOT Peak Velocity 79.4 cm/s LVOT Peak Gradient 2.5 mmHg LVOT Velocity Time Integral 14.7 cm MV Area PHT 3.1 cm??? Mitral E Point Velocity 84.9 cm/s Mitral A Point Velocity 90.5 cm/s Mitral E to A Ratio 0.9 MV Deceleration Time 247.0 ms TR Peak Velocity 324.6 cm/s TR Peak Gradient 42.1 mmHg FINDINGS Left Ventricle Left ventricular ejection fraction is estimated at 35-40 %. Moderately increased left ventricular wall thickness. [place] akinetic. Right Ventricle Right ventricle not well visualized. Moderate pulmonary hypertension. Right Atrium Right atrium not well visualized. Left Atrium Normal left atrial size. Mitral Valve Structurally normal mitral valve. Trace mitral regurgitation. No mitral stenosis. Aortic Valve Aortic valve not well visualized. Tricuspid Valve Structurally normal tricuspid valve. Mild tricuspid regurgitation. No tricuspid stenosis. Pulmonic Valve Pulmonic valve not well visualized. Pericardium No pericardial or pleural effusion. Aorta Mild aortic dilatation at the level of the sinuses of valsalva (root). CONCLUSIONS Poor, Very technically difficult study. Indication: Acute congestive heart failure LVEF 35 to 40% Moderate concentric LVH. Apical akinesia Moderate pulmonary hypertension with RVSP estimated around 50 mmHg Mild mitral regurgitation Previewed by: Dr Mukesh Allen (Electronically Signed) Final Date: 01 July 2024 11:15
[2024-07-01 11:41] LABS: Glucose,Whole Blood 266 mg/dL (70-110)
--- NOTE | 2024-07-01 11:48 | P.CRDCN ---
History of Present Illness Consult date: 07/01/24 Reason for Consult (text): CHF, hypoxic respiratory failure History of present illness: This is a 59-year-old male patient of Dr. Cailin Levin with past medical history of morbid obesity, hypertension, hyperlipidemia, diabetes. We have been asked to evaluate the patient for CHF, hypoxic respiratory failure. Patient presented to the emergency center due to shortness of breath and was found to have a pulse ox of 70% by EMS. He had a cough with sputum production. Patient was placed on CPAP and eventually on BiPAP in the hospital. Patient initially had some confusion which seems to be improved at this time. He has been transition to nasal cannula. Patient was found to be tachycardic in the 130s and hypertensive 160/103 on presentation. Blood pressure 120/60, heart rate 61, pulse ox 95% on 2 L nasal cannula. Patient is seen today in the emergency center waiting for a bed on the cardiac stepdown unit. Patient has been started on IV Lasix 40 mg every 12 hours, IV Solu-Medrol and nebulizer treatments as well as home cardiac medications. Patient states that his breathing is much improved since he arrived. -EKG: Sinus rhythm with frequent PVCs -Chest x-ray: Consider CHF with patchy pulmonary edema. #2 considerable improvement in pulmonary edema. -CTA chest: No PE. Scattered diffuse groundglass opacities for possible pulmon evin edema or pneumonia possible COVID-pneumonia. Cholelithiasis. -Laboratory studies: WBC 13.6 and repeat 11.8. pH 7.11, pCO2 81, pO2 397, bicarb 26, total CO2 28, O2 sat 99, base excess -6.3. Sodium 135, potassium 4.3, BUN 15 creatinine 0.68. Lactic acid initially 2.4 and now 1.6. Troponins 0.062, 0.312, 0.379. BNP 1250. -Home cardiac medications: Aspirin 81 mg daily, atenolol 25 mg daily, h ydrochlorothiazide 25 mg daily, losartan 25 mg daily. -Dobutamine stress echocardiogram performed in the office on 07/31/2023 revealed inconclusive dobutamine stress echo due to inability to obtain target heart rate. At 76% of PMHR. No significant wall motion abnormalities are noted. -Echocardiogram reveals EF of 35 to 40%, moderate concentric LVH. Moderate pulmonary hypertension with RVSP of 50 mmHg. Mild mitral regurgitation. Review Of Systems: At the time of my exam: CONSTITUTIONAL: Denies fever or chills. HEENT: Denies blurred vision, vision changes, or eye pain. Denies hemoptysis CARDIOVASCULAR: Denies chest pain. Denies orthopnea. Denies PND. Denies palpitations RESPIRATORY: Reports cough and sputum, reports shortness of breath. GASTROINTESTINAL: Denies abdominal pain. Denies nausea or vomiting. HEMATOLOGIC: Denies bleeding disorders. GENITOURINARY: Denies any blood in urine. SKIN: Denies puritis. Denies rash. Physical examination: Gen: This is a 59-year-old morbidly obese male appears to be comfortable at rest. VS: reviewed HEENT: Head is atraumatic, normocephalic. Pupils equal, round. Sclerae is anicteric. NECK: Supple. No JVD. LUNGS: Bilateral crackles. No intercostal retractions. HEART: Regular rate and rhythm. No murmur. ABDOMEN: Soft No tenderness. EXTREMITIES: Bilateral lower extremity edema. No calf tenderness. NEUROLOGICAL: Patient is awake, alert and oriented x3. Assessment: Type II [place] secondary to acidosis and hypoxia Sinus tachycardia, resolved Acute hypoxic respiratory failure requiring BiPAP, now on nasal cannula O2 Acute pulmonary edema Acute systolic heart failure Acute hypertensive emergency Cardiomyopathy, unknown if ischemic or nonischemic Moderate pulmonary hypertension Hypertension history Hyperlipidemia Diabetes Morbid obesity with BMI of 52 Plan: Resume patient's home cardiac medications with the following changes Discontinue atenolol and start patient on Toprol XL 25 mg daily Continue IV Lasix 40 mg every 12 hours Monitor MARIVEL, daily weights, electrolytes and renal function Continue telemetry monitoring Further recommendations to follow based upon clinical course Thank you kindly for this consultation. Nurse practitioner note has been reviewed, I agree with documented findings and plan of care. Patient was seen and examined. Past Medical History Past Medical History: Atrial Fibrillation, Diabetes Mellitus, Hypertension Past Surgical History: No Surgical Hx Reported Past Psychological History: No Psychological Hx Reported Smoking Status: Never smoker Past Alcohol Use History: None Reported Past Drug Use History: None Reported Medications and Allergies Home Medications Medication Instructions Recorded Confirmed Type Aspirin EC [Ecotrin Low Dose] 81 mg PO DAILY 06/30/24 06/30/24 History Atorvastatin [Lipitor] 20 mg PO DAILY 06/30/24 06/30/24 History Cholecalciferol (Vitamin D3) 1,250 mcg PO Q7D 06/30/24 06/30/24 History [Vitamin D3 (1250 Mcg = 50,000 Iu)] Dulaglutide [Trulicity] 0.75 mg SQ Q7D 06/30/24 06/30/24 History Gabapentin [Neurontin] 300 mg PO DAILY 06/30/24 06/30/24 History Insulin Glargine,Hum.rec.anlog 40 units SQ BID 06/30/24 06/30/24 History [Lantus Solostar Pen] Loratadine [Claritin] 10 mg PO DAILY 06/30/24 06/30/24 History Losartan [Cozaar] 25 mg PO DAILY 06/30/24 06/30/24 History Pioglitazone [Actos] 15 mg PO DAILY 06/30/24 06/30/24 History atenoloL [Tenormin] 25 mg PO DAILY 06/30/24 06/30/24 History hydroCHLOROthiazide [Hydrodiuril] 25 mg PO DAILY 06/30/24 06/30/24 History metFORMIN HCL ER [Glucophage XR] 1,000 mg PO BID 06/30/24 06/30/24 History Allergies Allergy/AdvReac Type Severity Reaction Status Date / Time No Known Allergies Allergy Verified 06/30/24 12:48 Physical Exam Vitals: Vital Signs Temp Pulse Resp BP Pulse Ox FiO2 07/01/24 09:03 98.3 F 61 22 120/68 95 07/01/24 06:00 61 18 139/81 98 07/01/24 00:00 72 18 149/84 97 06/30/24 22:00 75 19 146/82 98 06/30/24 20:30 78 20 146/83 98 06/30/24 16:30 82 18 155/95 97 06/30/24 15:30 99 25 H 155/71 99 06/30/24 15:09 60 06/30/24 15:08 108 H 26 H 155/71 97 06/30/24 13:22 115 H 32 H 170/112 99 06/30/24 13:13 116 H 24 06/30/24 13:00 121 H 26 H 163/82 98 06/30/24 12:58 125 H 34 H 06/30/24 12:49 100 06/30/24 12:46 100 06/30/24 12:44 97 F L 131 H 36 H 160/103 95 Results 07/01/24 07:06 07/01/24 08:32 Cardiac Enzymes 06/30/24 06/30/24 06/30/24 Range/Units 13:00 13:00 18:06 AST 44 (17-59) U/L Troponin I 0.062 H* 0.312 H* (0.000-0.034) ng/mL 06/30/24 07/01/24 Range/Units 20:22 08:32 AST 21 (17-59) U/L Troponin I 0.379 H* (0.000-0.034) ng/mL Coagulation 06/30/24 Range/Units 13:00 PT 11.1 (10.0-12.5) sec APTT 22.5 (22.0-30.0) sec CBC 06/30/24 07/01/24 Range/Units 13:00 07:06 WBC 13.6 H 11.8 H (3.8-10.6) k/uL RBC 5.53 5.10 (4.30-5.90) m/uL Hgb 17.5 15.1 (13.0-17.5) gm/dL Hct 52.8 47.2 (39.0-53.0) % Plt Count 450 301 (150-450) k/uL Comprehensive Metabolic Panel 06/30/24 07/01/24 Range/Units 13:00 08:32 Sodium 136 L 135 L (137-145) mmol/L Potassium 4.2 4.3 (3.5-5.1) mmol/L Chloride 100 94 L (98-107) mmol/L Carbon Dioxide 23 35 H (22-30) mmol/L BUN 10 15 (9-20) mg/dL Creatinine 0.73 0.68 (0.66-1.25) mg/dL Glucose 485 H 227 H (74-99) mg/dL Calcium 8.6 9.4 (8.4-10.2) mg/dL AST 44 21 (17-59) U/L ALT 36 31 (4-49) U/L Alkaline Phosphatase 105 73 (38-126) U/L Total Protein 6.8 6.0 L (6.3-8.2) g/dL Albumin 4.1 3.5 (3.5-5.0) g/dL Current Medications Generic Name Dose Route Start Last Admin Trade Name Freq PRN Reason Stop Dose Admin Aspirin 81 mg 06/30/24 13:45 07/01/24 08:25 Aspirin 81 Mg PO 81 mg DAILY DOROTA Administration Atenolol 25 mg 06/30/24 13:45 07/01/24 08:24 Atenolol 25 Mg Tab PO 25 mg DAILY DOROTA Administration Atorvastatin Calcium 20 mg 07/01/24 09:00 07/01/24 08:24 Atorvastatin 20 Mg Tab PO 20 mg DAILY DOROTA Administration Enoxaparin Sodium 40 mg 06/30/24 15:30 07/01/24 08:25 Enoxaparin 40 Mg/0.4 Ml Syringe SQ 40 mg DAILY DOROTA Administration Furosemide 40 mg 06/30/24 21:00 07/01/24 08:24 Furosemide 10 Mg/Ml 4 Ml Vial IV 40 mg Q12HR DOROTA Administration Insulin Aspart 0 unit 06/30/24 17:30 07/01/24 08:25 Insulin Aspart (Novolog) 100 Unit/Ml Vial SQ 12 unit AC-TID DOROTA Administration Protocol Insulin Detemir 40 unit 06/30/24 21:00 07/01/24 08:25 Insulin Detemir (Levemir) 100 Unit/Ml Syr SQ 40 unit BID@0700,2100 DOROTA Administration Naloxone HCl 0.2 mg 06/30/24 16:49 Naloxone 0.4 Mg/Ml 1 Ml Vial IV Q2M PRN Opioid Reversal Pantoprazole Sodium 40 mg 06/30/24 15:30 07/01/24 08:24 Pantoprazole 40 Mg Tablet PO 40 mg [id number] DOROTA Administration 07/01/24 07:06 07/01/24 08:32
[2024-07-01 17:06] LABS: Glucose,Whole Blood 69 mg/dL (70-110)
[2024-07-01 17:36] LABS: Glucose,Whole Blood 126 mg/dL (70-110)
[2024-07-01 20:10] LABS: Glucose,Whole Blood 126 mg/dL (70-110)
[2024-07-02 05:56] LABS: Glucose,Whole Blood 69 mg/dL (70-110)
--- NOTE | 2024-07-02 06:00 | P.PN ---
Subjective Progress Note Date: 07/01/24 59-year-old male came in with complaints of shortness of breath going on for last few days along with orthopnea. Patient is morbidly obese denied any fever chills chest x-ray was done which is consistent with pulmonary edema. I do not have any other labs available ABGs consistent with hypercapnic respiratory failure patient is presently on BiPAP patient has pH of 7.11 pCO2 of 81 patient pCO2 is high as he is on BiPAP and his ABG is probably on BiPAP patient blood sugars are high as well other labs are still pending at this time. 07/01/2024 Patient is seen in follow-up today with cardiology and pulmonary following. Patient is continued on IV Lasix and off BiPAP currently maintained on 4 L via nasal cannula. Cardiology evaluating the patient making some adjustments to medications recommending discontinuing atenolol and will add Toprol XL. Faint crackles noted at the bases and will continue on IV Lasix for now. Follow-up on repeat labs. Patient did undergo CTA which revealed an incidental teardrop gallbladder with cholelithiasis. Will consult general surgery and appreciate input and recommendations. Review of systems: Constitutional: No reports of fatigue, fever, or chills Cardiovascular: No reports of chest pain or palpitations Respiratory: No reports of worsening shortness of breath, patient reports feeling better GI: No reports of nausea, vomiting, or diarrhea : No reports of dysuria or retention Neurovascular: reports of generalized weakness All medications have been reviewed PHYSICAL EXAMINATION: GENERAL: The patient is alert and oriented x3, morbidly obese, off BiPAP this morning currently on 4 L, appears older than stated age HEENT: Pupils are round and equally reacting to light. EOMI. No scleral icterus. No conjunctival pallor. Normocephalic, atraumatic. No pharyngeal erythema. No thyromegaly. CARDIOVASCULAR: S1 and S2 muffled PULMONARY: Diminished breath sounds bilaterally with a few crackles noted at the bases. ABDOMEN: Soft, obese, nontender, nondistended, normoactive bowel sounds. No palpable organomegaly. MUSCULOSKELETAL: No joint swelling or deformity. EXTREMITIES: No cyanosis, clubbing, patient has extensive bilateral pitting pedal edema NEUROLOGICAL: Gross neurological examination did not reveal any focal deficits. Diffusely weak SKIN: No rashes. Assessment: -Acute hypercapnic respiratory failure probably secondary to obesity h ypoventilation syndrome, requiring BiPAP and weaning as tolerated currently on 4 L via nasal cannula -Acute hypoxic respiratory failure: Secondary to congestive heart failure with acute exacerbation, 2D echo pending -Type 2 diabetes mellitus uncontrolled with hyperglycemia -Diabetic neuropathy -Hypertension -Hyperlipidemia -Teardrop gallbladder with cholelithiasis on imaging, consulted general surgery pending -Morbid obesity with a BMI 51.6 -DVT prophylaxis -GI prophylaxis -Full code Plan: Patient is continued on IV Lasix with cardiology and pulmonary following. 2D echo is pending at this time Patient was on BiPAP and has weaned to nasal cannula and reports does not wear oxygen outpatient, wean FiO2 as tolerated Follow-up on repeat labs Continue monitoring Accu-Cheks before meals and at bedtime and adjust insulins accordingly Recommend PT/OT therapy evaluation General Surgery consulted for teardrop gallbladder with cholelithiasis The impression and plan of care has been dictated by Mecca Huitron, Nurse Practitioner as directed. Dr. Lauren MD I have performed a history and examination and MDM of this patient, discussed the same with the dictator, and agree with the dictator's assessment and plan as written ,documented as a scribe. Based on total visit time, I have performed more than 50% of the visit. Objective - Vital Signs Vital signs: Vital Signs Temp 98.3 F 07/01/24 09:03 Pulse 61 07/01/24 09:03 Resp 22 07/01/24 09:03 BP 120/68 07/01/24 09:03 Pulse Ox 95 07/01/24 09:03 FiO2 60 06/30/24 15:09 Intake & Output 06/30/24 07/01/24 07/01/24 18:59 06:59 18:59 Weight 151.953 kg - Labs CBC & Chem 7: 07/01/24 07:06 07/01/24 08:32 Labs: Abnormal Lab Results - Last 24 Hours (Table) 06/30/24 06/30/24 06/30/24 Range/Units 12:49 13:00 13:00 WBC 13.6 H (3.8-10.6) k/uL Neutrophils # (1.3-7.7) k/uL Lymphocytes # (Manual) 5.71 H (1.0-4.8) k/uL D-Dimer 1.03 H (<0.60) mg/L FEU ABG pH (7.35-7.45) ABG pCO2 (35-45) mmHg ABG pO2 (83-108) mmHg ABG HCO3 (21-25) mmol/L ABG Total CO2 (19-24) mmol/L ABG O2 Saturation (94-97) % Sodium (137-145) mmol/L Glucose (74-99) mg/dL POC Glucose (mg/dL) 405 H (70-110) mg/dL Plasma Lactic Acid Jaime (0.7-2.0) mmol/L Troponin I (0.000-0.034) ng/mL Urine Protein (Negative) Urine Glucose (UA) (Negative) Urine Blood (Negative) Urine RBC (0-5) /hpf Urine Mucus (None) /hpf 06/30/24 06/30/24 06/30/24 Range/Units 13:00 13:00 13:00 WBC (3.8-10.6) k/uL Neutrophils # (1.3-7.7) k/uL Lymphocytes # (Manual) (1.0-4.8) k/uL D-Dimer (<0.60) mg/L FEU ABG pH (7.35-7.45) ABG pCO2 (35-45) mmHg ABG pO2 (83-108) mmHg ABG HCO3 (21-25) mmol/L ABG Total CO2 (19-24) mmol/L ABG O2 Saturation (94-97) % Sodium 136 L (137-145) mmol/L Glucose 485 H (74-99) mg/dL POC Glucose (mg/dL) (70-110) mg/dL Plasma Lactic Acid Jaime 4.8 H* (0.7-2.0) mmol/L Troponin I 0.062 H* (0.000-0.034) ng/mL Urine Protein (Negative) Urine Glucose (UA) (Negative) Urine Blood (Negative) Urine RBC (0-5) /hpf Urine Mucus (None) /hpf 06/30/24 06/30/24 06/30/24 Range/Units 13:00 16:51 17:25 WBC (3.8-10.6) k/uL Neutrophils # (1.3-7.7) k/uL Lymphocytes # (Manual) (1.0-4.8) k/uL D-Dimer (<0.60) mg/L FEU ABG pH 7.11 L* (7.35-7.45) ABG pCO2 81 H* (35-45) mmHg ABG pO2 397 H (83-108) mmHg ABG HCO3 26 H (21-25) mmol/L ABG Total CO2 28 H (19-24) mmol/L ABG O2 Saturation 99.9 H (94-97) % Sodium (137-145) mmol/L Glucose (74-99) mg/dL POC Glucose (mg/dL) 379 H (70-110) mg/dL Plasma Lactic Acid Jaiem 3.0 H* (0.7-2.0) mmol/L Troponin I (0.000-0.034) ng/mL Urine Protein (Negative) Urine Glucose (UA) (Negative) Urine Blood (Negative) Urine RBC (0-5) /hpf Urine Mucus (None) /hpf 06/30/24 06/30/24 06/30/24 Range/Units 18:06 20:22 20:22 WBC (3.8-10.6) k/uL Neutrophils # (1.3-7.7) k/uL Lymphocytes # (Manual) (1.0-4.8) k/uL D-Dimer (<0.60) mg/L FEU ABG pH (7.35-7.45) ABG pCO2 (35-45) mmHg ABG pO2 (83-108) mmHg ABG HCO3 (21-25) mmol/L ABG Total CO2 (19-24) mmol/L ABG O2 Saturation (94-97) % Sodium (137-145) mmol/L Glucose (74-99) mg/dL POC Glucose (mg/dL) (70-110) mg/dL Plasma Lactic Acid Jaime 2.4 H* (0.7-2.0) mmol/L Troponin I 0.312 H* 0.379 H* (0.000-0.034) ng/mL Urine Protein (Negative) Urine Glucose (UA) (Negative) Urine Blood (Negative) Urine RBC (0-5) /hpf Urine Mucus (None) /hpf 06/30/24 06/30/24 07/01/24 Range/Units 21:39 23:52 07:06 WBC 11.8 H (3.8-10.6) k/uL Neutrophils # 9.5 H (1.3-7.7) k/uL Lymphocytes # (Manual) (1.0-4.8) k/uL D-Dimer (<0.60) mg/L FEU ABG pH (7.35-7.45) ABG pCO2 (35-45) mmHg ABG pO2 (83-108) mmHg ABG HCO3 (21-25) mmol/L ABG Total CO2 (19-24) mmol/L ABG O2 Saturation (94-97) % Sodium (137-145) mmol/L Glucose (74-99) mg/dL POC Glucose (mg/dL) (70-110) mg/dL Plasma Lactic Acid Jaime 2.4 H* (0.7-2.0) mmol/L Troponin I (0.000-0.034) ng/mL Urine Protein Trace H (Negative) Urine Glucose (UA) 4+ H (Negative) Urine Blood Large H (Negative) Urine RBC 10 H (0-5) /hpf Urine Mucus Rare H (None) /hpf 07/01/24 Range/Units 07:36 WBC (3.8-10.6) k/uL Neutrophils # (1.3-7.7) k/uL Lymphocytes # (Manual) (1.0-4.8) k/uL D-Dimer (<0.60) mg/L FEU ABG pH (7.35-7.45) ABG pCO2 (35-45) mmHg ABG pO2 (83-108) mmHg ABG HCO3 (21-25) mmol/L ABG Total CO2 (19-24) mmol/L ABG O2 Saturation (94-97) % Sodium (137-145) mmol/L Glucose (74-99) mg/dL POC Glucose (mg/dL) 256 H (70-110) mg/dL Plasma Lactic Acid Jaime (0.7-2.0) mmol/L Troponin I (0.000-0.034) ng/mL Urine Protein (Negative) Urine Glucose (UA) (Negative) Urine Blood (Negative) Urine RBC (0-5) /hpf Urine Mucus (None) /hpf
[2024-07-02 06:33] LABS: Glucose,Whole Blood 74 mg/dL (70-110)
[2024-07-02 06:38] LABS: Basophils # (A) 0.1 k/uL (0-0.2); Basophils % (A) 1 %; Eosinophils # (A) 0.1 k/uL (0-0.7); Eosinophils % (A) 1 %; HCT 49.1 % (39.0-53.0); HGB 15.2 gm/dL (13.0-17.5); Hypochromasia Slight; Lymphocytes # (A) 3.3 k/uL (1.0-4.8); Lymphocytes % (A) 26 %; MCH 29.2 pg (25.0-35.0); MCV 94.1 fL (80.0-100.0); Mean Platelet Volume 7.7; Monocytes # (A) 0.9 k/uL (0-1.0); Monocytes % (A) 7 %; Neutrophils % (A) 63 %; Platelet Count 344 k/uL (150-450); RBC 5.22 m/uL (4.30-5.90); RDW 13.4 % (11.5-15.5); WBC 12.7 k/uL (3.8-10.6)
[2024-07-02 08:10] LABS: African American GFR (CKD) >90 (>60 ml/min/1.73 sqM); Anion Gap 6 mmol/L; Blood Urea Nitrogen 17 mg/dL (9-20); Calcium 9.6 mg/dL (8.4-10.2); Carbon Dioxide 39 mmol/L (22-30); Chloride 93 mmol/L (98-107); Glucose 68 mg/dL (74-99); Magnesium 1.8 mg/dL (1.6-2.3); Non-African American GFR(CKD) >90 (>60 ml/min/1.73 sqM); Sodium 138 mmol/L (137-145)
[2024-07-02] MEDS: METOPROLOL SUCCINATE (ER) 25 MG TAB.ER.24H PO SCH (08:29)
[2024-07-02] MEDS: SPIRONOLACTONE 25 MG TAB PO SCH (10:34)
[2024-07-02] MEDS: LOSARTAN 25 MG TAB PO SCH (10:34)
[2024-07-02 11:36] LABS: Glucose,Whole Blood 117 mg/dL (70-110)
--- NOTE | 2024-07-02 13:38 | P.GSCN ---
History of Present Illness Consult date: 07/02/24 History of present illness: CHIEF COMPLAINT: Shortness of breath HISTORY OF PRESENT ILLNESS: This is a 59-year-old male who presented with shortness of breath and was found to have CHF exacerbation. Patient is on IV Lasix. EF was 35 to 40%. Patient had a CTA of the chest which showed no evidence of PE did report pulmonary edema and evidence of gallstones and a por celain gallbladder. Patient denies any abdominal pain. Denies any nausea or vomiting he is currently on a clear liquid diet. Surgical service has been consulted regarding chronic cholecystitis. Patient seen and examined with Dr. Lobo PAST MEDICAL HISTORY: Atrial fibrillation, diabetes mellitus and hypertension, obesity, moderate pulmonary hypertension, cardiomyopathy, PAST SURGICAL HISTORY: No prior abdominal surgeries MEDICATIONS: See below ALLERGIES: See below SOCIAL HISTORY: No illicit drug use. REVIEW OF SYSTEMS: CONSTITUTIONAL: Denies fever or chills. HEENT: Denies blurred vision, vision changes, or eye pain. Denies hemoptysis CARDIOVASCULAR: Denies chest pain or pressure. RESPIRATORY: No shortness of breath. GASTROINTESTINAL: See HPI for pertinent findings HEMATOLOGIC: Denies bleeding disorders. GENITOURINARY: Denies any blood in urine or increased urinary frequency. SKIN: Denies pruitis. Denies rash. PHYSICAL EXAM: VITAL SIGNS: Reviewed GENERAL: Well-developed in no acute distress. HEENT: No sclera icterus. Extraocular movements grossly intact. Moist buccal mucosa. Head is atraumatic, normocephalic. No nasal drainage. ABDOMEN: Soft. Obese. Nondistended. Nontender. No rebound or guarding. NEUROLOGIC: Alert and oriented. Cranial nerves II through XII grossly intact. LABORATORY DATA: WBC 12.7 Hgb 15.2 platelets 344 Sodium 138 potassium 4.0 creatinine 0.84 Lactic acid 2.4 down to 1.6 Mildly elevated troponins IMAGING: CTA chest reports no evidence of PE. Scattered diffuse groundglass opacities rating concern for pulmonary edema or pneumonia. Cholelithiasis and porcelain gallbladder ASSESSMENT: 1. Cholelithiasis and porcelain gallbladder noted on CTA of chest 2. Cardiomyopathy, EF of 35% 3. Acute CHF exacerbation 4. Morbid obesity, BMI 51.6 5. Type II [place] secondary to acidosis and hypoxia PLAN: -Patient is tentatively scheduled for laparoscopic cholecystectomy on Friday with Dr. Lobo if medically stable. Cholecystectomy can be completed outpatient if needed. -Continue to medically optimize patient -Advance diet to low-fat Physician Managed Services Consultant note has been reviewed by physician. Signing provider agrees with the documented findings, assessment, and plan of care. Past Medical History Past Medical History: Atrial Fibrillation, Diabetes Mellitus, Hypertension History of Any Multi-Drug Resistant Organisms: None Reported Past Surgical History: No Surgical Hx Reported Past Anesthesia/Blood Transfusion Reactions: No Reported Reaction Past Psychological History: No Psychological Hx Reported Smoking Status: Never smoker Past Alcohol Use History: None Reported Past Drug Use History: None Reported - Past Family History Father Family Medical History: CVA/TIA, Diabetes Mellitus Mother Family Medical History: Diabetes Mellitus Medications and Allergies Home Medications Medication Instructions Recorded Confirmed Type Aspirin EC [Ecotrin Low Dose] 81 mg PO DAILY 06/30/24 06/30/24 History Atorvastatin [Lipitor] 20 mg PO DAILY 06/30/24 06/30/24 History Cholecalciferol (Vitamin D3) 1,250 mcg PO Q7D 06/30/24 06/30/24 History [Vitamin D3 (1250 Mcg = 50,000 Iu)] Dulaglutide [Trulicity] 0.75 mg SQ Q7D 06/30/24 06/30/24 History Gabapentin [Neurontin] 300 mg PO DAILY 06/30/24 06/30/24 History Insulin Glargine,Hum.rec.anlog 40 units SQ BID 06/30/24 06/30/24 History [Lantus Solostar Pen] Loratadine [Claritin] 10 mg PO DAILY 06/30/24 06/30/24 History Losartan [Cozaar] 25 mg PO DAILY 06/30/24 06/30/24 History Pioglitazone [Actos] 15 mg PO DAILY 06/30/24 06/30/24 History atenoloL [Tenormin] 25 mg PO DAILY 06/30/24 06/30/24 History hydroCHLOROthiazide [Hydrodiuril] 25 mg PO DAILY 06/30/24 06/30/24 History metFORMIN HCL ER [Glucophage XR] 1,000 mg PO BID 06/30/24 06/30/24 History Allergies Allergy/AdvReac Type Severity Reaction Status Date / Time No Known Allergies Allergy Verified 06/30/24 12:48 Surgical - Exam Vital Signs Temp Pulse Resp BP Pulse Ox 97 F L 131 H 36 H 160/103 95 06/30/24 12:44 06/30/24 12:44 06/30/24 12:44 06/30/24 12:44 06/30/24 12:44 Results - Labs 07/02/24 06:15 07/02/24 06:15 Abnormal Lab Results - Last 24 Hours (Table) 07/01/24 07/01/24 07/01/24 Range/Units 08:32 11:39 17:04 WBC (3.8-10.6) k/uL Neutrophils # (1.3-7.7) k/uL Sodium 135 L (137-145) mmol/L Chloride 94 L (98-107) mmol/L Carbon Dioxide 35 H (22-30) mmol/L Glucose 227 H (74-99) mg/dL POC Glucose (mg/dL) 266 H 69 L (70-110) mg/dL Total Protein 6.0 L (6.3-8.2) g/dL 07/01/24 07/01/24 07/02/24 Range/Units 17:34 20:10 05:55 WBC (3.8-10.6) k/uL Neutrophils # (1.3-7.7) k/uL Sodium (137-145) mmol/L Chloride (98-107) mmol/L Carbon Dioxide (22-30) mmol/L Glucose (74-99) mg/dL POC Glucose (mg/dL) 126 H 126 H 69 L (70-110) mg/dL Total Protein (6.3-8.2) g/dL 07/02/24 07/02/24 Range/Units 06:15 06:15 WBC 12.7 H (3.8-10.6) k/uL Neutrophils # 8.0 H (1.3-7.7) k/uL Sodium (137-145) mmol/L Chloride 93 L (98-107) mmol/L Carbon Dioxide 39 H (22-30) mmol/L Glucose 68 L (74-99) mg/dL POC Glucose (mg/dL) (70-110) mg/dL Total Protein (6.3-8.2) g/dL Diabetes panel 07/01/24 07/02/24 Range/Units 08:32 06:15 Sodium 135 L 138 (137-145) mmol/L Potassium 4.3 4.0 (3.5-5.1) mmol/L Chloride 94 L 93 L (98-107) mmol/L Carbon Dioxide 35 H 39 H (22-30) mmol/L BUN 15 17 (9-20) mg/dL Creatinine 0.68 0.84 (0.66-1.25) mg/dL Glucose 227 H 68 L (74-99) mg/dL Calcium 9.4 9.6 (8.4-10.2) mg/dL AST 21 (17-59) U/L ALT 31 (4-49) U/L Alkaline Phosphatase 73 (38-126) U/L Total Protein 6.0 L (6.3-8.2) g/dL Albumin 3.5 (3.5-5.0) g/dL Calcium panel 07/01/24 07/02/24 Range/Units 08:32 06:15 Calcium 9.4 9.6 (8.4-10.2) mg/dL Albumin 3.5 (3.5-5.0) g/dL Pituitary panel 07/01/24 07/02/24 Range/Units 08:32 06:15 Sodium 135 L 138 (137-145) mmol/L Potassium 4.3 4.0 (3.5-5.1) mmol/L Chloride 94 L 93 L (98-107) mmol/L Carbon Dioxide 35 H 39 H (22-30) mmol/L BUN 15 17 (9-20) mg/dL Creatinine 0.68 0.84 (0.66-1.25) mg/dL Glucose 227 H 68 L (74-99) mg/dL Calcium 9.4 9.6 (8.4-10.2) mg/dL Adrenal panel 07/01/24 07/02/24 Range/Units 08:32 06:15 Sodium 135 L 138 (137-145) mmol/L Potassium 4.3 4.0 (3.5-5.1) mmol/L Chloride 94 L 93 L (98-107) mmol/L Carbon Dioxide 35 H 39 H (22-30) mmol/L BUN 15 17 (9-20) mg/dL Creatinine 0.68 0.84 (0.66-1.25) mg/dL Glucose 227 H 68 L (74-99) mg/dL Calcium 9.4 9.6 (8.4-10.2) mg/dL Total Bilirubin 0.6 (0.2-1.3) mg/dL AST 21 (17-59) U/L ALT 31 (4-49) U/L Alkaline Phosphatase 73 (38-126) U/L Total Protein 6.0 L (6.3-8.2) g/dL Albumin 3.5 (3.5-5.0) g/dL
--- NOTE | 2024-07-02 14:36 | P.PN ---
Subjective Progress Note Date: 07/02/24 Reason for Consult (text): CHF, hypoxic respiratory failure History of present illness: This is a 59-year-old male patient of Dr. Cailin Levin with past medical history of morbid obesity, hypertension, hyperlipidemia, diabetes. We have been asked to evaluate the patient for CHF, hypoxic respiratory failure. Patient presented to the emergency center due to shortness of breath and was found to have a pulse ox of 70% by EMS. He had a cough with sputum production. Patient was placed on CPAP and eventually on BiPAP in the hospital. Patient initially had some confusion which seems to be improved at this time. He has been transition to nasal cannula. Patient was found to be tachycardic in the 130s and hypertensive 160/103 on presentation. Blood pressure 120/60, heart rate 61, pulse ox 95% on 2 L nasal cannula. Patient is seen today in the emergency center waiting for a bed on the cardiac stepdown unit. Patient has been started on IV Lasix 40 mg every 12 hours, IV Solu-Medrol and nebulizer treatments as well as home cardiac medications. Patient states that his breathing is much improved since he arrived. -EKG: Sinus rhythm with frequent PVCs -Chest x-ray: Consider CHF with patchy pulmonary edema. #2 considerable improvement in pulmonary edema. -CTA chest: No PE. Scattered diffuse groundglass opacities for possible pulmonary edema or pneumonia possible COVID-pneumonia. Cholelithiasis. -Laboratory studies: WBC 13.6 and repeat 11.8. pH 7.11, pCO2 81, pO2 397, bicarb 26, total CO2 28, O2 sat 99, base excess -6.3. Sodium 135, potassium 4.3, BUN 15 creatinine 0.68. Lactic acid initially 2.4 and now 1.6. Troponins 0.062, 0.312, 0.379. BNP 1250. -Home cardiac medications: Aspirin 81 mg daily, atenolol 25 mg daily, hydrochlor othiazide 25 mg daily, losartan 25 mg daily. -Dobutamine stress echocardiogram performed in the office on 07/31/2023 revealed inconclusive dobutamine stress echo due to inability to obtain target heart rate. At 76% of PMHR. No significant wall motion abnormalities are noted. -Echocardiogram on this hospitalization reveals EF of 35 to 40%, moderate concentric LVH. Moderate pulmonary hypertension with RVSP of 50 mmHg. Mild mitral regurgitation. 07/02 Patient seen and examined. He denies having any shortness of breath. Blood pressure 128/83, heart rate 68, pulse ox 96% on room air. He is currently on IV Lasix 40 mg every 12 hours. Repeat blood work reveals hemoglobin 15.2, BUN 17 creatinine 0.84, CO2 39. Physical examination: Gen: This is a 59-year-old morbidly obese male appears to be comfortable at rest. VS: reviewed HEENT: Head is atraumatic, normocephalic. Pupils equal, round. Sclerae is anicteric. NECK: Supple. No JVD. LUNGS: Bilateral crackles. No intercostal retractions. HEART: Regular rate and rhythm. No murmur. ABDOMEN: Soft No tenderness. EXTREMITIES: Bilateral lower extremity edema. No calf tenderness. NEUROLOGICAL: Patient is awake, alert and oriented x3. Assessment: Type II IN secondary to acidosis and hypoxia Sinus tachycardia, resolved Acute hypoxic respiratory failure requiring BiPAP, now off O2 Acute pulmonary edema Acute systolic heart failure Acute hypertensive emergency Cardiomyopathy, unknown if ischemic or nonischemic, EF 35 to 40% Moderate pulmonary hypertension Hypertension history Hyperlipidemia Diabetes Morbid obesity with BMI of 52 Plan: Resume patient's home cardiac medications with the following changes Continue Toprol XL 25 mg daily Transition IV Lasix to oral 40 mg daily Add losartan 25 mg daily Add spironolactone 25 mg daily Further recommendations to follow based upon clinical course Thank you kindly for this consultation. Nurse practitioner note has been reviewed, I agree with documented findings and plan of care. Patient was seen and examined. Objective - Vital Signs Vital signs: Vital Signs Temp 97.6 F 07/02/24 12:13 Pulse 63 07/02/24 12:13 Resp 16 07/02/24 12:13 BP 144/93 07/02/24 12:13 Pulse Ox 98 07/02/24 12:13 FiO2 60 06/30/24 15:09 Intake & Output 07/01/24 07/02/24 07/02/24 18:59 06:59 18:59 Intake Total 480 720 10 Output Total 600 Balance 480 120 10 Weight 151.953 kg 149.4 kg Intake: IV 10 Invasive Line 2 10 Oral 480 720 Output: Urine 600 Other: Voiding Method Urinal Urinal # Voids 0 1 4 # Bowel Movements 0 - Labs CBC & Chem 7: 07/02/24 06:15 01/31/25 06:15 Labs: Abnormal Lab Results - Last 24 Hours (Table) 07/01/24 07/01/24 07/01/24 Range/Units 17:04 17:34 20:10 WBC (3.8-10.6) k/uL Neutrophils # (1.3-7.7) k/uL Chloride (98-107) mmol/L Carbon Dioxide (22-30) mmol/L Glucose (74-99) mg/dL POC Glucose (mg/dL) 69 L 126 H 126 H (70-110) mg/dL 07/02/24 07/02/24 07/02/24 Range/Units 05:55 06:15 06:15 WBC 12.7 H (3.8-10.6) k/uL Neutrophils # 8.0 H (1.3-7.7) k/uL Chloride 93 L (98-107) mmol/L Carbon Dioxide 39 H (22-30) mmol/L Glucose 68 L (74-99) mg/dL POC Glucose (mg/dL) 69 L (70-110) mg/dL 07/02/24 Range/Units 11:34 WBC (3.8-10.6) k/uL Neutrophils # (1.3-7.7) k/uL Chloride (98-107) mmol/L Carbon Dioxide (22-30) mmol/L Glucose (74-99) mg/dL POC Glucose (mg/dL) 117 H (70-110) mg/dL
--- NOTE | 2024-07-02 14:37 | US ---
EXAMINATION TYPE: US gallbladder DATE OF EXAM: 07/02/2024 COMPARISON: CT: 06/30/24 CLINICAL INDICATION: Male, 59 years old with history of nausea, gallstones, porcelain gallbladder; ga llstones seen on CT TECHNIQUE: Grayscale and color Doppler imaging of the right upper quadrant was performed. FINDINGS: EXAM MEASUREMENTS: Liver Length: 20.1 cm Gallbladder Wall: 0.29 cm CBD: 0.49 cm Right Kidney: 12.3 x 5.4 x 5.6 cm SHOE PACKER NOTES: Pancreas: tail obscured by bowel gas, appears wnl Liver: heterogeneous Gallbladder: EFRAIN sign. Limited due to shadowing Evidence for sonographic Neri's sign: No CBD: wnl Right Kidney: wnl IMPRESSION: 1. No evidence for acute process. 2. Gallbladder filled with gallstones. 3. Hepatocellular disease correlate for hepatic steatosis. [facility], , 07/02/2024 2:34 PM
--- NOTE | 2024-07-02 16:22 | P.PN ---
Subjective Progress Note Date: 07/02/24 59-year-old male came in with complaints of shortness of breath going on for last few days along with orthopnea. Patient is morbidly obese denied any fever chills chest x-ray was done which is consistent with pulmonary edema. I do not have any other labs available ABGs consistent with hypercapnic respiratory failure patient is presently on BiPAP patient has pH of 7.11 pCO2 of 81 patient pCO2 is high as he is on BiPAP and his ABG is probably on BiPAP patient blood sugars are high as well other labs are still pending at this time. Objective - Vital Signs Vital signs: Vital Signs Temp 97.4 F L 07/02/24 08:03 Pulse 68 07/02/24 08:58 Resp 15 07/02/24 08:03 BP 132/84 07/02/24 10:33 Pulse Ox 96 07/02/24 08:03 FiO2 60 06/30/24 15:09 Intake & Output 07/01/24 07/02/24 07/02/24 18:59 06:59 18:59 Intake Total 480 720 Output Total 600 Balance 480 120 Weight 151.953 kg 149.4 kg Intake: Oral 480 720 Output: Urine 600 Other: Voiding Method Urinal Urinal # Voids 0 1 # Bowel Movements 0 - Exam GENERAL: The patient is alert and oriented x3, morbidly obese, off BiPAP this morning currently on 4 L, appears older than stated age HEENT: Pupils are round and equally reacting to light. EOMI. No scleral icterus. No conjunctival pallor. Normocephalic, atraumatic. No pharyngeal erythema. No thyromegaly. CARDIOVASCULAR: S1 and S2 muffled PULMONARY: Diminished breath sounds bilaterally with a few crackles noted at the bases. ABDOMEN: Soft, obese, nontender, nondistended, normoactive bowel sounds. No palpable organomegaly. MUSCULOSKELETAL: No joint swelling or deformity. EXTREMITIES: No cyanosis, clubbing, patient has extensive bilateral pitting pedal edema NEUROLOGICAL: Gross neurological examination did not reveal any focal deficits. Diffusely weak SKIN: No rashes. - Labs CBC & Chem 7: 07/02/24 06:15 07/02/24 06:15 Labs: Abnormal Lab Results - Last 24 Hours (Table) 07/01/24 07/01/24 07/01/24 Range/Units 11:39 17:04 17:34 WBC (3.8-10.6) k/uL Neutrophils # (1.3-7.7) k/uL Chloride (98-107) mmol/L Carbon Dioxide (22-30) mmol/L Glucose (74-99) mg/dL POC Glucose (mg/dL) 266 H 69 L 126 H (70-110) mg/dL 07/01/24 07/02/24 07/02/24 Range/Units 20:10 05:55 06:15 WBC 12.7 H (3.8-10.6) k/uL Neutrophils # 8.0 H (1.3-7.7) k/uL Chloride (98-107) mmol/L Carbon Dioxide (22-30) mmol/L Glucose (74-99) mg/dL POC Glucose (mg/dL) 126 H 69 L (70-110) mg/dL 07/02/24 Range/Units 06:15 WBC (3.8-10.6) k/uL Neutrophils # (1.3-7.7) k/uL Chloride 93 L (98-107) mmol/L Carbon Dioxide 39 H (22-30) mmol/L Glucose 68 L (74-99) mg/dL POC Glucose (mg/dL) (70-110) mg/dL Assessment and Plan Assessment: -Acute hypercapnic respiratory failure probably secondary to obesity hypoventilation syndrome, requiring BiPAP and weaning as tolerated currently on 4 L via nasal cannula -Acute hypoxic respiratory failure: Secondary to congestive heart failure with acute exacerbation, 2D echo pending -Type 2 diabetes mellitus uncontrolled with hyperglycemia -Diabetic neuropathy -Hypertension -Hyperlipidemia -Teardrop gallbladder with cholelithiasis on imaging, consulted general surgery pending -Morbid obesity with a BMI 51.6 -DVT prophylaxis -GI prophylaxis -Full code Plan: Patient is continued on IV Lasix with cardiology and pulmonary following. 2D echo is pending at this time Patient was on BiPAP and has weaned to nasal cannula and reports does not wear oxygen outpatient, wean FiO2 as tolerated Follow-up on repeat labs Continue monitoring Accu-Cheks before meals and at bedtime and adjust insulins accordingly Recommend PT/OT therapy evaluation General Surgery consulted for teardrop gallbladder with cholelithiasis
[2024-07-02 16:39] LABS: Glucose,Whole Blood 164 mg/dL (70-110)
--- NOTE | 2024-07-02 19:08 | P.PN ---
Subjective Progress Note Date: 07/02/24 This is a 59-year-old male patient, morbidly obese, known history of diabetes mellitus hypertension and hyperlipidemia, presents to the hospital because of acute worsening shortness of breath and the patient was found to be in acute pulmonary edema. The patient was significantly short of breath at the time of admission and immediately the patient was placed on a BiPAP. Initial blood gas while on the BiPAP showed a pH of 7.11 with a pCO2 of 81 and pO2 of 397 this was on FiO2 100% with pressures of 14/5. Noted the patient was quite hypertensive at time of admission, initial blood pressure was as high as 170/112. Subsequently, the pressure dropped. The patient was given IV Lasix with excellent diuresis. He seems to be much more comfortable at this point in time. He is able to communicate. His respiratory rate also improved while being on the BiPAP and current respiratory rate is in the mid 20s. No altered mentation. Awake and alert and communicating. Denies having any chest pain. His proBNP level was 1250. Troponin was 0.06. Electrolytes are all within normal limits. There was a cause of 13.6 with a hemoglobin 13.5 and a platelet count of 450. Denies having any chest pain. No pleurisy. No hemoptysis. He has developed increased lower extremity edema. He has been incarcerated for a total of 17 years and currently he is on parole. CT angiogram was also done and showed no evidence of any pulm embolism. There was scattered diffuse groundglass pulmonary opacities consistent with pulmonary edema. 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 Echocardiogram was ordered. The patient is currently on IV Lasix. On 07/01/2024, the patient is being seen in follow-up. The patient was awaiting an ICU transfer due to lack of bed availability's, the patient stayed in the emergency. Overnight, he improved considerably and currently is off the BiPAP and he has been transitioned to 2 L of oxygen by nasal cannula. Breathing is nonlabored. He is calm and comfortable awake and alert and communicating. He has produced good urine output as the patient was receiving Lasix 40 mg IV every 12 hours. Labs from today shows a white cell count of 11, hemoglobin 15.1 and a platelet count of 301. Lactic acid level is dropped to 1.6. Blood sugars at 256. The troponins were monitored and the troponin max at 0.37. Echocardiogram is still pending for now. Remains on Lasix 40 mg IV every 12 hours. Remains on Lovenox DVT prophylaxis. Remains on Levemir insulin 40 units twice daily and a sliding scale coverage. Blood pressures under much better control for now and the patient is to be seen by cardiology. On 07/02/2024, the patient is being seen for a follow-up. This patient is feeling better compared to yesterday. Less short of breath compared to y esterday. The patient presented to us with an acute hypoxic respiratory failure secondary pulmonary edema and the patient also had a component of acute hypercapnic respiratory failure. Initially treated with BiPAP and the patient is currently on room air oxygen. The patient is transition to oral Lasix and the patient was taken off IV Lasix. The fluid balance has been negative over the past 24 hours. The white cell count is at 12.7 with a hemoglobin of 15.2 and a platelet count of 344. BUN 70 with a catheter 0.8 and a sodium level is at 138. The patient has no specific complaints. No chest pain. Echocardiogram was also completed and the patient was found to have impaired LV function with an ejection fraction of 35 to 40% along with moderate concentric LVH, moderate pulm hypertension with a RVSP of 50 and mild mitral regurgitation. The gallbladder ultrasound showed no acute process and the patient has gallstones. He also has hepatic steatosis. Objective - Vital Signs Vital signs: Vital Signs Temp 97.6 F 07/02/24 12:13 Pulse 63 07/02/24 12:13 Resp 16 07/02/24 12:13 BP 144/93 07/02/24 12:13 Pulse Ox 98 07/02/24 12:13 FiO2 60 06/30/24 15:09 Intake & Output 07/01/24 07/02/24 07/02/24 18:59 06:59 18:59 Intake Total 480 720 10 Output Total 600 Balance 480 120 10 Weight 151.953 kg 149.4 kg Intake: IV 10 Invasive Line 2 10 Oral 480 720 Output: Urine 600 Other: Voiding Method Urinal Urinal # Voids 0 1 # Bowel Movements 0 - Exam The patient morbidly obese, calm and comfortable on room air oxygen Head exam is unremarkable. No scleral icterus or corneal arcus noted. Neck is without jugular venous distension, thyromegaly, or carotid bruits. Carotid upstrokes are brisk bilaterally. Lungs diminished breath sound bilateral lung with bibasilar crackles. Cardiac exam reveals the PMI to be normally sized and situated. Rhythm is regular. First and second heart sounds normal. No murmurs, rubs or gallops. Abdominal exam reveals normal bowel sounds, no masses, no organomegaly and no aortic enlargement. Extremities are showing increased edema lower extremities bilaterally and both femoral and pedal pulses are normal. Examination of the skin revealed no evidence of significant rashes, suspicious appearing nevi or other concerning lesions. Neurologically, the patient is awake and alert and the patient does not have any focal neurological deficit. Cranial nerves are essentially intact. - Labs CBC & Chem 7: 07/02/24 06:15 07/02/24 06:15 Labs: Abnormal Lab Results - Last 24 Hours (Table) 07/01/24 07/01/24 07/01/24 Range/Units 17:04 17:34 20:10 WBC (3.8-10.6) k/uL Neutrophils # (1.3-7.7) k/uL Chloride (98-107) mmol/L Carbon Dioxide (22-30) mmol/L Glucose (74-99) mg/dL POC Glucose (mg/dL) 69 L 126 H 126 H (70-110) mg/dL 07/02/24 07/02/24 07/02/24 Range/Units 05:55 06:15 06:15 WBC 12.7 H (3.8-10.6) k/uL Neutrophils # 8.0 H (1.3-7.7) k/uL Chloride 93 L (98-107) mmol/L Carbon Dioxide 39 H (22-30) mmol/L Glucose 68 L (74-99) mg/dL POC Glucose (mg/dL) 69 L (70-110) mg/dL 07/02/24 Range/Units 11:34 WBC (3.8-10.6) k/uL Neutrophils # (1.3-7.7) k/uL Chloride (98-107) mmol/L Carbon Dioxide (22-30) mmol/L Glucose (74-99) mg/dL POC Glucose (mg/dL) 117 H (70-110) mg/dL Assessment and Plan Plan: Acute hypoxic/hypercapnic respiratory failure secondary to pulmonary edema. Patient improved. Blood pressures under better control. The patient diuresed and the patient is currently on room air oxygen Acute pulmonary edema, improved Systolic heart failure with an ejection fraction of 35% and moderate pulm hypertension with a RVSP of 50 Acute NSTEMI versus myocardial type II ischemia secondary to above-mentioned comorbidities Acute hypertensive emergency, blood pressure under better control for now. Morbid obesity Features of obstructive sleep apnea. No significant metabolic alkalosis to indicate chronic hypercapnic respiratory failure and respiratory acidosis essentially acute Diabetes mellitus type 2 Diabetic neuropathy Hypertension Hyperlipidemia Hepatic steatosis Gallstones Plan Patient currently on room air oxygen Repeat chest x-ray shows improvement in pulmonary edema Continue oral Lasix Continue Aldactone Lovenox for DVT prophylaxis Continue Levemir insulin Monitor blood sugars Continue metoprolol 25 mg p.o. daily Outpatient sleep study Will continue to follow
[2024-07-02 20:13] LABS: Glucose,Whole Blood 182 mg/dL (70-110)
[2024-07-03 05:58] LABS: Glucose,Whole Blood 79 mg/dL (70-110)
--- NOTE | 2024-07-03 08:03 | P.PN ---
Subjective Progress Note Date: 07/03/24 Reason for Consult (text): CHF, hypoxic respiratory failure History of present illness: This is a 59-year-old male patient of Dr. Cailin Levin with past medical history of morbid obesity, hypertension, hyperlipidemia, diabetes. We have been asked to evaluate the patient for CHF, hypoxic respiratory failure. Patient presented to the emergency center due to shortness of breath and was found to have a pulse ox of 70% by EMS. He had a cough with sputum production. Patient was placed on CPAP and eventually on BiPAP in the hospital. Patient initially had some confusion which seems to be improved at this time. He has been transition to nasal cannula. Patient was found to be tachycardic in the 130s and hypertensive 160/103 on presentation. Blood pressure 120/60, heart rate 61, pulse ox 95% on 2 L nasal cannula. Patient is seen today in the emergency center waiting for a bed on the cardiac stepdown unit. Patient has been started on IV Lasix 40 mg every 12 hours, IV Solu-Medrol and nebulizer treatments as well as home cardiac medications. Patient states that his breathing is much improved since he arrived. -EKG: Sinus rhythm with frequent PVCs -Chest x-ray: Consider CHF with patchy pulmonary edema. #2 considerable improvement in pulmonary edema. -CTA chest: No PE. Scattered diffuse groundglass opacities for possible pulmonary edema or pneumonia possible COVID-pneumonia. Cholelithiasis. -Laboratory studies: WBC 13.6 and repeat 11.8. pH 7.11, pCO2 81, pO2 397, bicarb 26, total CO2 28, O2 sat 99, base excess -6.3. Sodium 135, potassium 4.3, BUN 15 creatinine 0.68. Lactic acid initially 2.4 and now 1.6. Troponins 0.062, 0.312, 0.379. BNP 1250. -Home cardiac medications: Aspirin 81 mg daily, atenolol 25 mg daily, hydrochlor othiazide 25 mg daily, losartan 25 mg daily. -Dobutamine stress echocardiogram performed in the office on 07/31/2023 revealed inconclusive dobutamine stress echo due to inability to obtain target heart rate. At 76% of PMHR. No significant wall motion abnormalities are noted. -Echocardiogram on this hospitalization reveals EF of 35 to 40%, moderate concentric LVH. Moderate pulmonary hypertension with RVSP of 50 mmHg. Mild mitral regurgitation. 07/02 Patient seen and examined. He denies having any shortness of breath. Blood pressure 128/83, heart rate 68, pulse ox 96% on room air. He is currently on IV Lasix 40 mg every 12 hours. Repeat blood work reveals hemoglobin 15.2, BUN 17 creatinine 0.84, CO2 39. 2/ Patient seen and examined. Blood pressure is 90/57, pulse ox 94% on room air, heart rate 73. Patient has been maximized on his heart failure medications at this time. General surgery is asking for clearance for gallbladder surgery for Friday. Physical examination: Gen: This is a 59-year-old morbidly obese male appears to be comfortable at rest. VS: reviewed HEENT: Head is atraumatic, normocephalic. Pupils equal, round. Sclerae is anicteric. NECK: Supple. No JVD. LUNGS: Bilateral crackles. No intercostal retractions. HEART: Regular rate and rhythm. No murmur. ABDOMEN: Soft No tenderness. EXTREMITIES: Bilateral lower extremity edema. No calf tenderness. NEUROLOGICAL: Patient is awake, alert and oriented x3. Assessment: Type II MA secondary to acidosis and hypoxia Sinus tachycardia, resolved Acute hypoxic respiratory failure requiring BiPAP, now off O2 Acute pulmonary edema Acute systolic heart failure Acute hypertensive emergency Cardiomyopathy, unknown if ischemic or nonischemic, EF 35 to 40% Moderate pulmonary hypertension Hypertension history Hyperlipidemia Diabetes Morbid obesity with BMI of 52 Plan: Continue patient's home cardiac medications with the following changes Continue Toprol XL 25 mg daily Continue Lasix oral 40 mg daily Continue the addition of losartan 25 mg daily and spironolactone 25 mg daily Due to patient's non-Q wave MA, acute heart failure and cardiomyopathy, known EF of 35 to 40%, Dr. Almodovar does not feel patient is a candidate for surgical intervention on Friday as planned for gallbladder surgery. Would recommend that patient wait 4 to 6 weeks until he has recovered from current active conditions. Nurse practitioner note has been reviewed, I agree with documented findings and plan of care. Patient was seen and examined. Objective - Vital Signs Vital signs: Vital Signs Temp 98.7 F 07/03/24 03:36 Pulse 73 07/03/24 03:36 Resp 18 07/03/24 03:36 BP 90/57 07/03/24 03:36 Pulse Ox 94 L 07/03/24 03:36 FiO2 60 06/30/24 15:09 Intake & Output 07/02/24 07/03/24 07/03/24 18:59 06:59 18:59 Intake Total 10 490 Balance 10 490 Weight 147.8 kg Intake: IV 10 10 Invasive Line 2 10 10 Oral 480 Other: Voiding Method Urinal Urinal # Voids 4 3 - Labs CBC & Chem 7: 07/02/24 06:15 07/02/24 06:15 Labs: Abnormal Lab Results - Last 24 Hours (Table) 07/02/24 07/02/24 07/02/24 Range/Units 06:15 11:34 16:37 Chloride 93 L (98-107) mmol/L Carbon Dioxide 39 H (22-30) mmol/L Glucose 68 L (74-99) mg/dL POC Glucose (mg/dL) 117 H 164 H (70-110) mg/dL 07/02/24 Range/Units 20:12 Chloride (98-107) mmol/L Carbon Dioxide (22-30) mmol/L Glucose (74-99) mg/dL POC Glucose (mg/dL) 182 H (70-110) mg/dL
[2024-07-03] MEDS: FUROSEMIDE 40 MG TAB PO SCH (09:45)
[2024-07-03 11:19] LABS: Glucose,Whole Blood 255 mg/dL (70-110)
--- NOTE | 2024-07-03 14:01 | P.PN ---
Subjective Progress Note Date: 07/03/24 This is a 59-year-old male patient, morbidly obese, known history of diabetes mellitus hypertension and hyperlipidemia, presents to the hospital because of acute worsening shortness of breath and the patient was found to be in acute pulmonary edema. The patient was significantly short of breath at the time of admission and immediately the patient was placed on a BiPAP. Initial blood gas while on the BiPAP showed a pH of 7.11 with a pCO2 of 81 and pO2 of 397 this was on FiO2 100% with pressures of 14/5. Noted the patient was quite hypertensive at time of admission, initial blood pressure was as high as 170/112. Subsequently, the pressure dropped. The patient was given IV Lasix with excellent diuresis. He seems to be much more comfortable at this point in time. He is able to communicate. His respiratory rate also improved while being on the BiPAP and current respiratory rate is in the mid 20s. No altered mentation. Awake and alert and communicating. Denies having any chest pain. His proBNP level was 1250. Troponin was 0.06. Electrolytes are all within normal limits. There was a cause of 13.6 with a hemoglobin 13.5 and a platelet count of 450. Denies having any chest pain. No pleurisy. No hemoptysis. He has developed increased lower extremity edema. He has been incarcerated for a total of 17 years and currently he is on parole. CT angiogram was also done and showed no evidence of any pulm embolism. There was scattered diffuse groundglass pulmonary opacities consistent with pulmonary edema. 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 Echocardiogram was ordered. The patient is currently on IV Lasix. On 07/01/2024, the patient is being seen in follow-up. The patient was awaiting an ICU transfer due to lack of bed availability's, the patient stayed in the emergency. Overnight, he improved considerably and currently is off the BiPAP and he has been transitioned to 2 L of oxygen by nasal cannula. Breathing is nonlabored. He is calm and comfortable awake and alert and communicating. He has produced good urine output as the patient was receiving Lasix 40 mg IV every 12 hours. Labs from today shows a white cell count of 11, hemoglobin 15.1 and a platelet count of 301. Lactic acid level is dropped to 1.6. Blood sugars at 256. The troponins were monitored and the troponin max at 0.37. Echocardiogram is still pending for now. Remains on Lasix 40 mg IV every 12 hours. Remains on Lovenox DVT prophylaxis. Remains on Levemir insulin 40 units twice daily and a sliding scale coverage. Blood pressures under much better control for now and the patient is to be seen by cardiology. On 07/02/2024, the patient is being seen for a follow-up. This patient is feeling better compared to yesterday. Less short of breath compared to y esterday. The patient presented to us with an acute hypoxic respiratory failure secondary pulmonary edema and the patient also had a component of acute hypercapnic respiratory failure. Initially treated with BiPAP and the patient is currently on room air oxygen. The patient is transition to oral Lasix and the patient was taken off IV Lasix. The fluid balance has been negative over the past 24 hours. The white cell count is at 12.7 with a hemoglobin of 15.2 and a platelet count of 344. BUN 70 with a catheter 0.8 and a sodium level is at 138. The patient has no specific complaints. No chest pain. Echocardiogram was also completed and the patient was found to have impaired LV function with an ejection fraction of 35 to 40% along with moderate concentric LVH, moderate pulm hypertension with a RVSP of 50 and mild mitral regurgitation. The gallbladder ultrasound showed no acute process and the patient has gallstones. He also has hepatic steatosis. 07/03/2024, the patient is being seen for a follow-up. The patient is on room air oxygen. Denies having any specific complaints. Hemodynamically stable. Blood pressures under good control. Afebrile. Pulse ox 95% on room air oxygen. Acute pulmonary edema has recovered and the patient remains on Lasix 40 mg p.o. daily and Aldactone 25 mg p.o. daily. The patient is also on metoprolol 25 mg p.o. daily losartan 25 mg p.o. daily. He is on Levemir insulin. Awake and alert and communicating. No other significant events overnight. Objective - Vital Signs Vital signs: Vital Signs Temp 98.4 F 07/03/24 09:43 Pulse 70 07/03/24 09:43 Resp 16 07/03/24 09:43 BP 127/58 07/03/24 09:43 Pulse Ox 94 L 07/03/24 09:43 FiO2 60 06/30/24 15:09 Intake & Output 07/02/24 07/03/24 07/03/24 18:59 06:59 18:59 Intake Total 10 490 318 Balance 10 490 318 Weight 147.8 kg Intake: IV 10 10 Invasive Line 2 10 10 Oral 480 318 Other: Voiding Method Urinal Urinal Toilet Urinal # Voids 4 3 - Exam The patient morbidly obese, calm and comfortable on room air oxygen Head exam is unremarkable. No scleral icterus or corneal arcus noted. Neck is without jugular venous distension, thyromegaly, or carotid bruits. Carotid upstrokes are brisk bilaterally. Lungs diminished breath sound bilateral lung with bibasilar crackles. Cardiac exam reveals the PMI to be normally sized and situated. Rhythm is regular. First and second heart sounds normal. No murmurs, rubs or gallops. Abdominal exam reveals normal bowel sounds, no masses, no organomegaly and no aortic enlargement. Extremities are showing increased edema lower extremities bilaterally and both femoral and pedal pulses are normal. Examination of the skin revealed no evidence of significant rashes, suspicious appearing nevi or other concerning lesions. Neurologically, the patient is awake and alert and the patient does not have any focal neurological deficit. Cranial nerves are essentially intact. - Labs CBC & Chem 7: 07/02/24 06:15 07/02/24 06:15 Labs: Abnormal Lab Results - Last 24 Hours (Table) 07/02/24 07/02/24 07/02/24 Range/Units 11:34 16:37 20:12 POC Glucose (mg/dL) 117 H 164 H 182 H (70-110) mg/dL Assessment and Plan Plan: Acute hypoxic/hypercapnic respiratory failure secondary to pulmonary edema. Patient improved. Blood pressures under better control. The patient diuresed and the patient is currently on room air oxygen Acute pulmonary edema, improved Systolic heart failure with an ejection fraction of 35% and moderate pulm hypertension with a RVSP of 50 Acute NSTEMI versus myocardial type II ischemia secondary to above-mentioned comorbidities Acute hypertensive emergency, blood pressure under better control for now. Morbid obesity Features of obstructive sleep apnea. No significant metabolic alkalosis to indicate chronic hypercapnic respiratory failure and respiratory acidosis essentially acute Diabetes mellitus type 2 Diabetic neuropathy Hypertension Hyperlipidemia Hepatic steatosis Gallstones Plan Patient currently on room air oxygen Repeat chest x-ray shows improvement in pulmonary edema Continue oral Lasix 40 mg p.o. daily Continue Aldactone 25 mg p.o. daily Metoprolol 25 mg p.o. daily Lovenox for DVT prophylaxis Continue Levemir insulin Monitor blood sugars Outpatient sleep study Will continue to follow
--- NOTE | 2024-07-03 15:51 | P.PN ---
Subjective Progress Note Date: 07/03/24 59-year-old male came in with complaints of shortness of breath going on for last few days along with orthopnea. Patient is morbidly obese denied any fever chills chest x-ray was done which is consistent with pulmonary edema. I do not have any other labs available ABGs consistent with hypercapnic respiratory failure patient is presently on BiPAP patient has pH of 7.11 pCO2 of 81 patient pCO2 is high as he is on BiPAP and his ABG is probably on BiPAP patient blood sugars are high as well other labs are still pending at this time. 07/03/2024 the patient is seen and evaluated for a follow-up. The patient is on room air oxygen. Denies having any specific complaints. Hemodynamically stable. Blood pressures under good control. Afebrile. Pulse ox 95% on room air oxygen. Acute pulmonary edema has recovered and the patient remains on Lasix 40 mg p.o. daily and Aldactone 25 mg p.o. daily. The patient is also on metoprolol 25 mg p.o. daily losartan 25 mg p.o. daily. He is on Levemir insulin. Awake and alert and communicating. No other significant events overnight. Patient currently on room air oxygen Repeat chest x-ray shows improvement in pulmonary edema Continue oral Lasix 40 mg p.o. daily Continue Aldactone 25 mg p.o. daily Metoprolol 25 mg p.o. daily Objective - Vital Signs Vital signs: Vital Signs Temp 98.4 F 07/03/24 09:43 Pulse 70 07/03/24 09:43 Resp 16 07/03/24 09:43 BP 127/58 07/03/24 09:43 Pulse Ox 94 L 07/03/24 09:43 FiO2 60 06/30/24 15:09 Intake & Output 07/02/24 07/03/24 07/03/24 18:59 06:59 18:59 Intake Total 10 490 318 Balance 10 490 318 Weight 147.8 kg Intake: IV 10 10 Invasive Line 2 10 10 Oral 480 318 Other: Voiding Method Urinal Urinal Toilet Urinal # Voids 4 3 - Exam GENERAL: The patient is alert and oriented x3, morbidly obese, off BiPAP this morning currently on 4 L, appears older than stated age HEENT: Pupils are round and equally reacting to light. EOMI. No scleral icterus. No conjunctival pallor. Normocephalic, atraumatic. No pharyngeal erythema. No thyromegaly. CARDIOVASCULAR: S1 and S2 muffled PULMONARY: Diminished breath sounds bilaterally with a few crackles noted at the bases. ABDOMEN: Soft, obese, nontender, nondistended, normoactive bowel sounds. No palpable organomegaly. MUSCULOSKELETAL: No joint swelling or deformity. EXTREMITIES: No cyanosis, clubbing, patient has extensive bilateral pitting pedal edema NEUROLOGICAL: Gross neurological examination did not reveal any focal deficits. Diffusely weak SKIN: No rashes. - Labs CBC & Chem 7: 07/02/24 06:15 07/02/24 06:15 Labs: Abnormal Lab Results - Last 24 Hours (Table) 07/02/24 07/02/24 07/02/24 Range/Units 11:34 16:37 20:12 POC Glucose (mg/dL) 117 H 164 H 182 H (70-110) mg/dL Assessment and Plan Assessment: -Acute hypercapnic respiratory failure probably secondary to obesity hypoventilation syndrome, requiring BiPAP and weaning as tolerated currently on 4 L via nasal cannula -Acute hypoxic respiratory failure: Secondary to congestive heart failure with acute exacerbation, 2D echo pending -Type 2 diabetes mellitus uncontrolled with hyperglycemia -Diabetic neuropathy -Hypertension -Hyperlipidemia -Teardrop gallbladder with cholelithiasis on imaging, consulted general surgery pending -Morbid obesity with a BMI 51.6 -DVT prophylaxis -GI prophylaxis -Full code Plan: Patient is continued on IV Lasix with cardiology and pulmonary following. 2D echo is pending at this time Patient was on BiPAP and has weaned to nasal cannula and reports does not wear oxygen outpatient, wean FiO2 as tolerated Follow-up on repeat labs Continue monitoring Accu-Cheks before meals and at bedtime and adjust insulins accordingly Recommend PT/OT therapy evaluation General Surgery consulted for teardrop gallbladder with cholelithiasis
--- NOTE | 2024-07-03 16:11 | P.PN ---
Subjective Progress Note Date: 07/03/24 CHIEF COMPLAINT: Gallstones HISTORY OF PRESENT ILLNESS: The patient is a 59-year-old male admitted for shortness of breath. Patient has baseline cardiomyopathy. Since admission, reports his breathing has resolved. He feels fine. Denies any abdominal pain. Patient not seeking to have surgery on this admission. ROS: No reports of nausea and vomiting. No bowel movements. No fevers or chills. No new chest pain. Morbid obesity, BMI 51.0. Has diabetes type 2 PHYSICAL EXAM: VITAL SIGNS: Reviewed CONSTITUTIONAL: Well developed and in no acute distress. EYES: Conjuctivae without sclera icterus. Extraocular movements grossly intact. HEAD, EARS, NOSE, THROAT: Moist buccal mucosa. Head is atraumatic, normocephalic. Hears conversational speech. No nasal drainage. RESPIRATORY: Non-labored respirations and equal bilateral excursions. CARDIOVASCULAR: Palpable 2+ radial pulses. ABDOMEN: Nontender. MUSCULOSKELETAL: No gross deformity of the lower extremities noted. No clubbing. No cyanosis. SKIN: Good skin turgor. Well perfused. NEUROLOGIC: Cranial nerves II through XII grossly intact. No focal or lateralizing signs. PSYCH: Appropriate affect. Alert and oriented to person, place and time. CLINICAL LABS: Reviewed. Blood sugar glucose elevated to 55 ASSESSMENT: 1. Congestive heart failure 2. Shortness of breath 3. Morbid obesity excess calories, BMI 51.0 4. Diabetes type 2, hyperglycemia PLAN: 1. Clinically, patient is doing well and would rather cancel surgery and do as outpatient. 2. Stable for discharge from surgical standpoint Objective - Vital Signs Vital signs: Vital Signs Temp 99.2 F 07/03/24 15:56 Pulse 64 07/03/24 15:56 Resp 16 07/03/24 15:56 BP 132/73 07/03/24 15:56 Pulse Ox 95 07/03/24 15:56 FiO2 60 06/30/24 15:09 Intake & Output 07/02/24 07/03/24 07/03/24 18:59 06:59 18:59 Intake Total 10 490 950 Balance 10 490 950 Weight 147.8 kg Intake: IV 10 10 10 Invasive Line 2 10 10 10 Oral 480 [id number] Other: Voiding Method Urinal Urinal Toilet Urinal # Voids 4 3 2 # Bowel Movements 1 - Labs CBC & Chem 7: 07/02/24 06:15 07/02/24 06:15 Labs: Abnormal Lab Results - Last 24 Hours (Table) 07/02/24 07/02/24 07/03/24 Range/Units 16:37 20:12 11:17 POC Glucose (mg/dL) 164 H 182 H 255 H (70-110) mg/dL
[2024-07-03 16:36] LABS: Glucose,Whole Blood 81 mg/dL (70-110)
[2024-07-03 20:00] LABS: Glucose,Whole Blood 166 mg/dL (70-110)
[2024-07-03] MEDS: INSULIN DETEMIR (LEVEMIR) 100 UNIT/ML SYR SQ SCH (20:07)
[2024-07-04 04:29] VITALS: TEMP 98
[2024-07-04 05:57] LABS: Glucose,Whole Blood 180 mg/dL (70-110)
--- NOTE | 2024-07-04 09:22 | P.PN ---
Subjective Progress Note Date: 07/04/24 This is Jj Bee NP, I'm dictating on behalf of Dr. Almodovar's H&P and A&P. Patient was interviewed and examined. Patient is a pleasant 59-year-old male with acute CHF exacerbation and hypoxic respiratory failure who had a type II MO secondary to acidosis and hypoxia. Patient reports that he is feeling good today. He denies any shortness of breath or chest pain. GENERAL: Well-appearing, well-nourished and in no acute distress. NECK: Supple without JVD or thyromegaly. LUNGS: Breath sounds clear to auscultation bilaterally. Respiration equal and unlabored. No wheezes, rales or rhonchi. HEART: Regular rate and rhythm without murmurs, rubs or gallops. S1 and S2 heard. EXTREMITIES: Normal range of motion, no edema. No clubbing or cyanosis. Peripheral pulses intact and strong. VITALS: Temp 98, pulse 66, respirations 18, blood pressure 133/62, O2 saturation 94% on room air TELEMETRY: Sinus mechanism LABS: No new labs since 07/02/2024 IMPRESSION: 1. Type II MO secondary to acidosis and hypoxia 2. Sinus tachycardia, resolved 3. Acute hypoxic respiratory failure requiring BiPAP, now off oxygen 4. Acute pulmonary edema 5. Acute systolic heart failure 6. Acute hypertensive emergency 7. Cardiomyopathy, unknown if ischemic or nonischemic, EF 35 to 40% 8. Moderate pulmonary hypertension 9. Hypertension history 10. Hyperlipidemia 11. Diabetes 12. Morbid obesity with BMI of 52 PLAN: Continue Toprol-XL 25 mg daily. Continue Lasix oral 40 mg daily. Continue losartan 25 mg daily. Continue spironolactone 25 mg daily. Due to the non-Q wave MO, acute heart failure and cardiomyopathy with a low ejection fraction, patient should not be a surgical candidate at this time. Patient will need further workup through cardiology as an outpatient prior to undergoing any procedure. Dr. Almodovar pressed on the area of the patient's gallbladder approximately 3 inches deep with no elicitation of any pain or discomfort noted. From a cardiology standpoint the patient can be discharged. Objective - Vital Signs Vital signs: Vital Signs Temp 98.0 F 07/04/24 03:54 Pulse 66 07/04/24 03:54 Resp 18 07/04/24 03:54 BP 133/62 07/04/24 03:54 Pulse Ox 94 L 07/04/24 03:54 FiO2 60 06/30/24 15:09 Intake & Output 07/03/24 07/04/24 07/04/24 18:59 06:59 18:59 Intake Total 950 540 Balance 950 540 Weight 146 kg Intake: IV 10 Invasive Line 2 10 Oral 940 540 Other: Voiding Method Toilet Toilet Urinal Urinal # Voids 2 3 # Bowel Movements 1 - Labs CBC & Chem 7: 07/02/24 06:15 07/02/24 06:15 Labs: Abnormal Lab Results - Last 24 Hours (Table) 07/03/24 07/03/24 07/04/24 Range/Units 11:17 19:59 05:56 POC Glucose (mg/dL) 255 H 166 H 180 H (70-110) mg/dL
[2024-07-04 09:35] VITALS: BP 114/78; PULSE 73; RESP 16
[2024-07-04 11:29] LABS: Glucose,Whole Blood 243 mg/dL (70-110)
--- NOTE | 2024-07-04 13:22 | P.PN ---
Subjective Progress Note Date: 07/04/24 This is a 59-year-old male patient, morbidly obese, known history of diabetes mellitus hypertension and hyperlipidemia, presents to the hospital because of acute worsening shortness of breath and the patient was found to be in acute pulmonary edema. The patient was significantly short of breath at the time of admission and immediately the patient was placed on a BiPAP. Initial blood gas while on the BiPAP showed a pH of 7.11 with a pCO2 of 81 and pO2 of 397 this was on FiO2 100% with pressures of 14/5. Noted the patient was quite hypertensive at time of admission, initial blood pressure was as high as 170/112. Subsequently, the pressure dropped. The patient was given IV Lasix with excellent diuresis. He seems to be much more comfortable at this point in time. He is able to communicate. His respiratory rate also improved while being on the BiPAP and current respiratory rate is in the mid 20s. No altered mentation. Awake and alert and communicating. Denies having any chest pain. His proBNP level was 1250. Troponin was 0.06. Electrolytes are all within normal limits. There was a cause of 13.6 with a hemoglobin 13.5 and a platelet count of 450. Denies having any chest pain. No pleurisy. No hemoptysis. He has developed increased lower extremity edema. He has been incarcerated for a total of 17 years and currently he is on parole. CT angiogram was also done and showed no evidence of any pulm embolism. There was scattered diffuse groundglass pulmonary opacities consistent with pulmonary edema. 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 Echocardiogram was ordered. The patient is currently on IV Lasix. On 07/01/2024, the patient is being seen in follow-up. The patient was awaiting an ICU transfer due to lack of bed availability's, the patient stayed in the emergency. Overnight, he improved considerably and currently is off the BiPAP and he has been transitioned to 2 L of oxygen by nasal cannula. Breathing is nonlabored. He is calm and comfortable awake and alert and communicating. He has produced good urine output as the patient was receiving Lasix 40 mg IV every 12 hours. Labs from today shows a white cell count of 11, hemoglobin 15.1 and a platelet count of 301. Lactic acid level is dropped to 1.6. Blood sugars at 256. The troponins were monitored and the troponin max at 0.37. Echocardiogram is still pending for now. Remains on Lasix 40 mg IV every 12 hours. Remains on Lovenox DVT prophylaxis. Remains on Levemir insulin 40 units twice daily and a sliding scale coverage. Blood pressures under much better control for now and the patient is to be seen by cardiology. On 07/02/2024, the patient is being seen for a follow-up. This patient is feeling better compared to yesterday. Less short of breath compared to y esterday. The patient presented to us with an acute hypoxic respiratory failure secondary pulmonary edema and the patient also had a component of acute hypercapnic respiratory failure. Initially treated with BiPAP and the patient is currently on room air oxygen. The patient is transition to oral Lasix and the patient was taken off IV Lasix. The fluid balance has been negative over the past 24 hours. The white cell count is at 12.7 with a hemoglobin of 15.2 and a platelet count of 344. BUN 70 with a catheter 0.8 and a sodium level is at 138. The patient has no specific complaints. No chest pain. Echocardiogram was also completed and the patient was found to have impaired LV function with an ejection fraction of 35 to 40% along with moderate concentric LVH, moderate pulm hypertension with a RVSP of 50 and mild mitral regurgitation. The gallbladder ultrasound showed no acute process and the patient has gallstones. He also has hepatic steatosis. 07/03/2024, the patient is being seen for a follow-up. The patient is on room air oxygen. Denies having any specific complaints. Hemodynamically stable. Blood pressures under good control. Afebrile. Pulse ox 95% on room air oxygen. Acute pulmonary edema has recovered and the patient remains on Lasix 40 mg p.o. daily and Aldactone 25 mg p.o. daily. The patient is also on metoprolol 25 mg p.o. daily losartan 25 mg p.o. daily. He is on Levemir insulin. Awake and alert and communicating. No other significant events overnight. On 07/04/2024, the patient is calm and comfortable. No specific complaints. Resting comfortably in bed. Pulse ox is in order of 97% room air oxygen. No chest pain. No shortness of breath. Blood pressures under good control. Objective - Vital Signs Vital signs: Vital Signs Temp 98.0 F 07/04/24 09:34 Pulse 73 07/04/24 09:34 Resp 16 07/04/24 09:34 BP 114/78 07/04/24 09:34 Pulse Ox 97 07/04/24 09:34 FiO2 60 06/30/24 15:09 Intake & Output 07/03/24 07/04/24 07/04/24 18:59 06:59 18:59 Intake Total 950 540 118 Balance 950 540 118 Weight 146 kg Intake: IV 10 Invasive Line 2 10 Oral 940 540 118 Other: Voiding Method Toilet Toilet Urinal Urinal # Voids 2 3 # Bowel Movements 1 - Exam The patient morbidly obese, calm and comfortable on room air oxygen Head exam is unremarkable. No scleral icterus or corneal arcus noted. Neck is without jugular venous distension, thyromegaly, or carotid bruits. C arotid upstrokes are brisk bilaterally. Lungs diminished breath sound bilateral lung with bibasilar crackles. Cardiac exam reveals the PMI to be normally sized and situated. Rhythm is regular. First and second heart sounds normal. No murmurs, rubs or gallops. Abdominal exam reveals normal bowel sounds, no masses, no organomegaly and no aortic enlargement. Extremities are showing increased edema lower extremities bilaterally and both femoral and pedal pulses are normal. Examination of the skin revealed no evidence of significant rashes, suspicious appearing nevi or other concerning lesions. Neurologically, the patient is awake and alert and the patient does not have any focal neurological deficit. Cranial nerves are essentially intact. - Labs CBC & Chem 7: 07/02/24 06:15 07/02/24 06:15 Labs: Abnormal Lab Results - Last 24 Hours (Table) 07/03/24 07/03/24 07/04/24 Range/Units 11:17 19:59 05:56 POC Glucose (mg/dL) 255 H 166 H 180 H (70-110) mg/dL Assessment and Plan Plan: Acute hypoxic/hypercapnic respiratory failure secondary to pulmonary edema. Patient improved. Blood pressures under better control. The patient diuresed and the patient is currently on room air oxygen Acute pulmonary edema, improved Systolic heart failure with an ejection fraction of 35% and moderate pulm hypertension with a RVSP of 50 Acute NSTEMI versus myocardial type II ischemia secondary to above-mentioned comorbidities Acute hypertensive emergency, blood pressure under better control for now. Morbid obesity Features of obstructive sleep apnea. No significant metabolic alkalosis to indicate chronic hypercapnic respiratory failure and respiratory acidosis ess entially acute Diabetes mellitus type 2 Diabetic neuropathy Hypertension Hyperlipidemia Hepatic steatosis Gallstones Plan Clinically stable Patient currently on room air oxygen Repeat chest x-ray shows improvement in pulmonary edema Continue oral Lasix 40 mg p.o. daily Continue Aldactone 25 mg p.o. daily Metoprolol 25 mg p.o. daily Lovenox for DVT prophylaxis Continue Levemir insulin Monitor blood sugars Outpatient sleep study Will discharge home today.
== END 2024-07-04 15:28 | disposition home or self-care (01) | DRG 133 ==
LOC: EC 12:38 → SUPCPDRO 12:38 → 2SICU 16:51 → 3SCARD 07-01 08:27
PROVIDERS: ADMIT Internal Medicine; ATTEND Internal Medicine
PROC: 5A09357 Assistance with Respiratory Ventilation, Less than 24 Consecutive Hours, Continuous Positive Airway Pressure (ICD-10-PCS; principal; 2024-06-30)
DX: J96.01 Acute respiratory failure with hypoxia (principal); I11.0 Hypertensive heart disease with heart failure; J96.02 Acute respiratory failure with hypercapnia; E87.20 Acidosis, unspecified; I27.22 Pulmonary hypertension due to left heart disease; Z68.43 Body mass index [BMI] 50.0-59.9, adult; K80.10 Calculus of gallbladder with chronic cholecystitis without obstruction; E66.2 Morbid (severe) obesity with alveolar hypoventilation; I21.A1 Myocardial infarction type 2; I16.1 Hypertensive emergency; E11.65 Type 2 diabetes mellitus with hyperglycemia; I50.21 Acute systolic (congestive) heart failure; E11.40 Type 2 diabetes mellitus with diabetic neuropathy, unspecified; K76.0 Fatty (change of) liver, not elsewhere classified; I34.0 Nonrheumatic mitral (valve) insufficiency; I48.91 Unspecified atrial fibrillation; I42.9 Cardiomyopathy, unspecified; Z79.4 Long term (current) use of insulin; E78.5 Hyperlipidemia, unspecified; R00.0 Tachycardia, unspecified; K82.8 Other specified diseases of gallbladder; Z79.82 Long term (current) use of aspirin; Z79.899 Other long term (current) drug therapy; Z79.84 Long term (current) use of oral hypoglycemic drugs; Z79.85 Long-term (current) use of injectable non-insulin antidiabetic drugs; Z65.3 Problems related to other legal circumstances
CPT/HCPCS: 36415; 36600; 71045; 71275; 76705; 80048; 80053; 81001; 82805; 83605; 83735; 83880; 84145; 84484; 85025; 85379; 85610; 85730; 87636; 93005; 93306; 94660; 94760; 96372; 96374; 96375; 96376; 99291

== ENCOUNTER 2024-10-29 09:14 | Inpatient (IN) | payer OTHER ==
[2024-10-29 10:30] LABS: Basophils # (A) 0.06 10*3/uL (0.00-0.10); Basophils % (A) 0.8 %; Eosinophils # (A) 0.13 10*3/uL (0.04-0.35); Eosinophils % (A) 1.7 %; HCT 52.4 % (39.6-50.0); HGB 17.8 g/dL (13.0-17.0); Lymphocytes # (A) 1.74 10*3/uL (0.90-5.00); Lymphocytes % (A) 22.6 %; MCH 30.5 pg (27.0-32.0); MCV 89.9 fL (80.0-97.0); Mean Platelet Volume 11.6 fL (9.5-12.2); Monocytes # (A) 0.75 10*3/uL (0.20-1.00); Monocytes % (A) 9.7 %; Neutrophils # (A) 5.01 10*3/uL (1.80-7.70); Neutrophils % (A) 65.1 %; Platelet Count 257 10*3/uL (140-440); RBC 5.83 10*6/uL (4.40-5.60); RDW 12.7 % (11.5-14.5)
--- NOTE | 2024-10-29 10:37 | ED ---
Neuro HPI - General Chief Complaint: Weakness Stated Complaint: Tingling, numbness, dizziness Time Seen by Provider: 10/29/24 09:20 Source: EMS Mode of arrival: EMS Limitations: no limitations - History of Present Illness Is the patient presenting with stroke symptoms?: Yes Initial Comments: 59-year-old male with past medical history of A-fib, diabetes who presents to the emergency department with right-sided weakness. States that 5 days ago he had sudden onset of right sided weakness in his arm and leg that made him fall. He denies hitting his head but does state that he scraped up his right leg pretty bad. He symptoms are now intermittent. He states that time he has worsening weakness and numbness on that right side but he has not had any more falls. No history of strokes. Does have a history of A-fib and is not a nticoagulated. He denies any headache or visual changes. No speech deficit. No other alleviating, precipitating or modifying factors. - Related Data Home Medications: Home Medications Medication Instructions Recorded Confirmed Aspirin EC [Ecotrin Low Dose] 81 mg PO DAILY 06/30/24 06/30/24 Atorvastatin [Lipitor] 20 mg PO DAILY 06/30/24 06/30/24 Cholecalciferol (Vitamin D3) 1,250 mcg PO Q7D 06/30/24 06/30/24 [Vitamin D3 (1250 Mcg = 50,000 Iu)] Dulaglutide [Trulicity] 0.75 mg SQ Q7D 06/30/24 06/30/24 Gabapentin [Neurontin] 300 mg PO DAILY 06/30/24 06/30/24 Insulin Glargine,Hum.rec.anlog 40 units SQ BID 06/30/24 06/30/24 [Lantus Solostar Pen] Loratadine [Claritin] 10 mg PO DAILY 06/30/24 06/30/24 Losartan [Cozaar] 25 mg PO DAILY 06/30/24 06/30/24 Pioglitazone [Actos] 15 mg PO DAILY 06/30/24 06/30/24 atenoloL [Tenormin] 25 mg PO DAILY 06/30/24 06/30/24 metFORMIN HCL ER [Glucophage XR] 1,000 mg PO BID 06/30/24 06/30/24 Previous Rx's Medication Instructions Recorded Furosemide [Lasix] 40 mg PO DAILY 30 Days #30 tab 07/04/24 Furosemide [Lasix] 40 mg PO DAILY 30 Days #30 tablet 07/04/24 Metoprolol Succinate (ER) [Toprol 25 mg PO DAILY 30 Days #30 tab 07/04/24 XL] Metoprolol Succinate (ER) [Toprol 25 mg PO DAILY 30 Days #30 tab 07/04/24 Xl] Pantoprazole Sodium [Protonix] 40 mg PO DAILY 30 Days #30 tab 07/04/24 Pantoprazole [Protonix] 40 mg PO AC-BRKFST 30 Days #30 tab 07/04/24 Spironolactone [Aldactone] 25 mg PO DAILY 30 Days #30 tab 07/04/24 Spironolactone [Aldactone] 25 mg PO DAILY 30 Days #30 tablet 07/04/24 Allergies/Adverse Reactions: Allergies Allergy/AdvReac Type Severity Reaction Status Date / Time No Known Allergies Allergy Verified 10/29/24 09:22 Review of Systems ROS Statement: Those systems with pertinent positive or pertinent negative responses have been documented in the HPI. ROS Other: All systems not noted in ROS Statement are negative. General Exam Limitations: no limitations Stroke MDM - Lab Data Result diagrams: 10/29/24 10:19 10/29/24 10:19 Lab Results 10/29/24 10/29/24 10/29/24 Range/Units 10:19 10:19 10:19 WBC 7.70 (4.50-10.00) 10*3/uL RBC 5.83 H (4.40-5.60) 10*6/uL Hgb 17.8 H (13.0-17.0) g/dL Hct 52.4 H (39.6-50.0) % MCV 89.9 (80.0-97.0) fL MCH 30.5 (27.0-32.0) pg MCHC 34.0 (32.0-37.0) g/dL Plt Count 257 (140-440) 10*3/uL MPV 11.6 (9.5-12.2) fL Immature Gran % (Auto) 0.1 % Neutrophils % 65.1 % Lymphocytes % 22.6 % Monocytes % 9.7 % Eosinophils % 1.7 % Basophils % 0.8 % Immature Gran # 0.01 (0.00-0.04) 10*3/uL Neutrophils # 5.01 (1.80-7.70) 10*3/uL Lymphocytes # 1.74 (0.90-5.00) 10*3/uL Monocytes # 0.75 (0.20-1.00) 10*3/uL Eosinophils # 0.13 (0.04-0.35) 10*3/uL Basophils # 0.06 (0.00-0.10) 10*3/uL PT 11.8 (10.0-12.5) sec INR 1.1 (<1.2) APTT 22.7 (22.0-30.0) sec Sodium 134 L (137-145) mmol/L Potassium 4.5 (3.5-5.1) mmol/L Chloride 98 (98-107) mmol/L Carbon Dioxide 20 L (22-30) mmol/L Anion Gap 16 mmol/L BUN 8 L (9-20) mg/dL Creatinine 0.53 L (0.66-1.25) mg/dL Est GFR (CKD-EPI)AfAm >90 (>60 ml/min/1.73 sqM) Est GFR (CKD-EPI)NonAf >90 (>60 ml/min/1.73 sqM) Glucose 301 H (74-99) mg/dL Calcium 9.8 (8.4-10.2) mg/dL Total Bilirubin 1.1 (0.2-1.3) mg/dL AST 23 (17-59) U/L ALT 11 (4-49) U/L Alkaline Phosphatase 74 (38-126) U/L Creatine Kinase 106 (55-170) U/L Troponin I (0.000-0.034) ng/mL Total Protein 6.7 (6.3-8.2) g/dL Albumin 4.1 (3.5-5.0) g/dL 10/29/24 Range/Units 10:19 WBC (4.50-10.00) 10*3/uL RBC (4.40-5.60) 10*6/uL Hgb (13.0-17.0) g/dL Hct (39.6-50.0) % MCV (80.0-97.0) fL MCH (27.0-32.0) pg MCHC (32.0-37.0) g/dL Plt Count (140-440) 10*3/uL MPV (9.5-12.2) fL Immature Gran % (Auto) % Neutrophils % % Lymphocytes % % Monocytes % % Eosinophils % % Basophils % % Immature Gran # (0.00-0.04) 10*3/uL Neutrophils # (1.80-7.70) 10*3/uL Lymphocytes # (0.90-5.00) 10*3/uL Monocytes # (0.20-1.00) 10*3/uL Eosinophils # (0.04-0.35) 10*3/uL Basophils # (0.00-0.10) 10*3/uL PT (10.0-12.5) sec INR (<1.2) APTT (22.0-30.0) sec Sodium (137-145) mmol/L Potassium (3.5-5.1) mmol/L Chloride (98-107) mmol/L Carbon Dioxide (22-30) mmol/L Anion Gap mmol/L BUN (9-20) mg/dL Creatinine (0.66-1.25) mg/dL Est GFR (CKD-EPI)AfAm (>60 ml/min/1.73 sqM) Est GFR (CKD-EPI)NonAf (>60 ml/min/1.73 sqM) Glucose (74-99) mg/dL Calcium (8.4-10.2) mg/dL Total Bilirubin (0.2-1.3) mg/dL AST (17-59) U/L ALT (4-49) U/L Alkaline Phosphatase (38-126) U/L Creatine Kinase (55-170) U/L Troponin I 0.026 (0.000-0.034) ng/mL Total Protein (6.3-8.2) g/dL Albumin (3.5-5.0) g/dL - Medical Decision Making Was pt. sent in by a medical professional or institution (, PA, INFORMATICS PHARMACIST, urgent care, hospital, or usp...) When possible be specific @ -[No] Did you speak to anyone other than the patient for history (EMS, parent, family, police, friend...)? What history was obtained from this source @ -[No] Did you review nursing and triage notes (agree or disagree)? Why? @ -[I reviewed and agree with nursing and triage notes] Were old charts reviewed (outside hosp., previous admission, EMS record, old EKG, old radiological studies, urgent care reports/EKG's, usp records)? Report findings @ -[No old charts were reviewed] Differential Diagnosis (chest pain, altered mental status, abdominal pain women, abdominal pain men, vaginal bleeding, weakness, fever, dyspnea, syncope, headache, dizziness, GI bleed, back pain, seizure, CVA, palpatations, mental health, musculoskeletal)? @ -[not applicable] EKG interpreted by me (3pts min.). @ -Yes and demonstrates sinus rhythm with rate of 93. Parable 165. QRS 109. QTc of 407. Intraventricular conduction delay with no acute ST segment elevation X-rays interpreted by me (1pt min.). @ -[None done] CT interpreted by me (1pt min.). @ -[None done] U/S interpreted by me (1pt. min.). @ -[None done] What testing was considered but not performed or refused? (CT, X-rays, U/S, labs)? Why? @ -[None] What meds were considered but not given or refused? Why? @ -[None] Did you discuss the management of the patient with other professionals (professionals i.e. , PA, INFORMATICS PHARMACIST, lab, RT, psych nurse, geriatric social work professor, dental front office assistant, teacher, radio electronics officer, porter sample case)? Give summary @ -[No] Was smoking cessation discussed for >3mins.? @ -[No] Was critical care preformed (if so, how long)? @ -[No] Were there social determinants of health that impacted care today? How? (Homelessness, low income, unemployed, alcoholism, drug addiction, transportation, low edu. Level, literacy, decrease access to med. care, penitentiary, rehab)? @ -[No] Was there de-escalation of care discussed even if they declined (Discuss DNR or withdrawal of care, Hospice)? DNR status @ -[No] What co-morbidities impacted this encounter? (DM, HTN, Smoking, COPD, CAD, Cancer, CVA, ARF, Chemo, Hep., AIDS, mental health diagnosis, sleep apnea, morbid obesity)? @ -[None] Was patient admitted / discharged? Hospital course, mention meds given and route, prescriptions, significant lab abnormalities, going to OR and other pertinent info. @ -[hospital course] Undiagnosed new problem with uncertain prognosis? @ -[No] Drug Therapy requiring intensive monitoring for toxicity (Heparin, Nitro, Insulin, Cardizem)? @ -[No] Were any procedures done? @ -[No] Diagnosis/symptom? @ -[default] Acute, or Chronic, or Acute on Chronic? @ -[default] Uncomplicated (without systemic symptoms) or Complicated (systemic symptoms)? @ -[default] Side effects of treatment? @ -[No] Exacerbation, Progression, or Severe Exacerbation? @ -[No] Poses a threat to life or bodily function? How? (Chest pain, [place], [place], pneumonia, PE, COPD, DKA, ARF, appy, cholecystitis, CVA, Diverticulitis, Homicidal, Suicidal, threat to staff... and all critical care pts) @ -[No] Past Medical History Past Medical History: Atrial Fibrillation, Diabetes Mellitus, Hypertension History of Any Multi-Drug Resistant Organisms: None Reported Past Surgical History: No Surgical Hx Reported Past Anesthesia/Blood Transfusion Reactions: No Reported Reaction Past Psychological History: No Psychological Hx Reported Smoking Status: Never smoker Past Alcohol Use History: None Reported Past Drug Use History: None Reported - Past Family History Father Family Medical History: CVA/TIA, Diabetes Mellitus Mother Family Medical History: Diabetes Mellitus Course Vital Signs 10/29/24 10/29/24 09:16 11:00 Temperature 98.7 F Pulse Rate 101 H 98 Respiratory 17 17 Rate Blood Pressure 191/86 139/89 O2 Sat by Pulse 96 96 Oximetry Disposition Clinical Impression: Right sided weakness Disposition: ADMITTED IP TO THIS [facility] Condition: Stable Is patient prescribed a controlled substance at d/c from ED?: No Referrals: Hayes Genao [Primary Care Provider] - 1-2 days Time of Disposition: 14:02 Decision to Admit Reason: Admit from EC Decision Date: 10/29/24 Decision Time: 14:02
[2024-10-29 10:44] LABS: ALT 11 U/L (4-49); African American GFR (CKD) >90 (>60 ml/min/1.73 sqM); Albumin 4.1 g/dL (3.5-5.0); Anion Gap 16 mmol/L; Blood Urea Nitrogen 8 mg/dL (9-20); Calcium 9.8 mg/dL (8.4-10.2); Carbon Dioxide 20 mmol/L (22-30); Chloride 98 mmol/L (98-107); Creatine Kinase 106 U/L (55-170); Glucose 301 mg/dL (74-99); Non-African American GFR(CKD) >90 (>60 ml/min/1.73 sqM); Sodium 134 mmol/L (137-145); Total Bilirubin 1.1 mg/dL (0.2-1.3); Total Protein 6.7 g/dL (6.3-8.2)
--- NOTE | 2024-10-29 10:53 | XR ---
EXAMINATION TYPE: XR chest 2V DATE OF EXAM: 10/29/2024 10:37 AM COMPARISON: 07/01/2024 CLINICAL INDICATION: Male, 59 years old with history of altered mental status, confusion TECHNIQUE: AP and lateral views FINDINGS: AP technique for the limited by large patient body habitus casting hazy densities over the chest and interstitial prominence which may be technical. Heart upper limits of normal in size. No consolidatio n or pleural effusion. IMPRESSION: Interstitial prominence may be due to technical factors. There is borderline heart size. No airspace disease or pleural effusion is seen. [facility], Workstation: [id number], 10/29/2024 10:50 AM
[2024-10-29 11:01] LABS: AST 23 U/L (17-59); Alkaline Phosphatase 74 U/L (38-126); Potassium 4.5 mmol/L (3.5-5.1)
[2024-10-29 11:15] LABS: INR 1.1 (<1.2); Partial Thromboplastin Time 22.7 sec (22.0-30.0)
[2024-10-29 11:16] LABS: Prothrombin Time 11.8 sec (10.0-12.5)
--- NOTE | 2024-10-29 11:49 | CT ---
EXAMINATION TYPE: CT brain wo con DATE OF EXAM: 10/29/2024 11:40 AM COMPARISON: None. CLINICAL INDICATION: Male, 59 years old with history of Neuro deficit, acute, stroke suspected, Rt si ded numbness and falls x few months, TECHNIQUE: Examination was done in axial plane without intravenous contrast. Coronal and sagittal r econstructions performed. CT DLP: 1160.6 mGycm, Automated exposure control for dose reduction was used. FINDINGS: There is no evidence of acute intracranial hemorrhage, acute ischemic changes, mass, mass-effect, or extra-axial fluid collection. There is no effacement of cerebral sulci or basal subarachnoid cister ns. There is no hydrocephalus. There is no midline shift. Varma-white matter distinction is preserv ed. Rightward nasal septal deviation. Paranasal sinuses and mastoid air cells are pneumatized. Orbits and globes are intact. IMPRESSION: No acute intracranial abnormality seen. [facility], , 10/29/2024 11:46 AM
--- NOTE | 2024-10-29 12:54 | CT ---
EXAMINATION TYPE: CT angio head neck DATE OF EXAM: 10/29/2024 11:54 AM COMPARISON: CT brain same day. CLINICAL INDICATION: Male, 59 years old with history of Neuro deficit, acute, stroke suspected; PHH, Rt sided numbness and falls x few months TECHNIQUE: Axially acquired helical CT angiogram of the head and neck was obtained with contrast. Axi al images are supplemented with 3D reconstructions and MIP images which were post-processed at an in dependent workstation. NASCET criteria used. Contrast used:65ml mL of Isovue 370 with IV Contrast, Oral contrast used: None. CT DLP: 1082.8 mGycm, Automated exposure control for dose reduction was used. FINDINGS: CTA HEAD: The vertebral and basilar arteries as well as the remainder of the posterior circulation is patent. Dural venous sinuses are patent. Atherosclerotic calcifications in the bilateral carotid siphons contribute to moderate to severe segm ental stenoses within the bilateral cavernous and clinoid segments. Refer to thin cut axial images 15 4, 162, and 163. Additional moderate to severe focal stenosis A2 segment right DOC, refer to thin cut axial image 221. Remainder of the anterior circulation is otherwise patent. No aneurysmal change is seen. CTA NECK: Mild atherosclerotic arch calcifications. Conventional arch vessel branching anatomy. Left vertebral artery is slightly more dominant. Otherwise, both vertebral arteries are patent throug hout their course. There are mild atherosclerotic calcifications within the bilateral carotid vessels. More focal atherosclerotic calcification at the right carotid bifurcation/distal right CCA causing a moderate, 60% stenosis. The right ICA is patent. Moderate atherosclerotic calcifications within the distal left CCA/carotid bifurcation continuing to a focal moderate, 60% stenosis distal CCA. Contiguous atherosclerotic calcifications continue to a mi ld, 30% stenosis at the origin of the left ICA. Retropharyngeal course of the mid to lower bilateral ICAs. IMPRESSION: CTA NECK: 1. Atherosclerotic change of the bilateral carotid bifurcations resulting in moderate, 60% stenosis a t both distal CCAs at the level of the carotid bifurcation. 2. Additional mild, 30% stenosis at the origin of the left ICA. CTA HEAD: 3. Atherosclerotic calcification resulting in segmental moderate to severe stenoses in the bilateral cavernous and clinoid segments of the ICAs. 4. Additional focal moderate to severe stenosis A2 segment right DOC. 5. No large vessel intracranial arterial occlusion or aneurysmal change is seen. [facility], , 10/29/2024 12:51 PM
[2024-10-29] MEDS: ASPIRIN 325 MG TAB PO STA (14:40)
[2024-10-29] MEDS: ATORVASTATIN 40 MG TAB PO SCH (14:41)
[2024-10-29] MEDS ORDERED: DEXTROSE 50% SYRINGE 50 ML IVP PRN ×2 (15:48)
[2024-10-29] MEDS ORDERED: GABAPENTIN 300 MG CAP PO PRN (15:48)
--- NOTE | 2024-10-29 15:56 | P.HPIM ---
History of Present Illness H&P Date: 10/29/24 This is a pleasant 59-year-old male with medical history significant for hypertension, hyperlipidemia, diabetes mellitus type 2, atrial fibrillation, marijuana use. Patient is a non-smoker. He comes into the hospital with a 3- day complaint of intermittent numbness affecting the right upper lower ex tremity. Additionally he states that he is having right leg weakness that began 3 days ago as well. He states that this first happened when he was getting out of his truck his entire right side became numb and he fell. It happened 2 more times. He states that he initially attributed it to his marijuana use however decided to come into the hospital for further evaluation. He was feeling dizzy and lightheaded as well. He denies any chest pain or shortness of breath. He does have some right lower extremity weakness. His initial NIH score was 0. He has no prior history of stroke. Chest x-ray reveals interstitial prominence may be due to technical factors there is borderline heart size. No airspace disease or pleural effusion is seen. Brain CT reveals no acute intracranial abnormali ty. CT angiography reveals atherosclerotic plaque from the bilateral carotid bifurcations resulting in moderate 60% narrowing within both the level of the carotid bifurcation. Mild 30% stenosis of the origin from the left ICA. Atherosclerotic ossification resulting in segmental moderate to severe stenosis in the bilateral cavernous and clinoid segments of the ICAs additional focal moderate to severe stenosis of A2 segment of the right ICA no large vessel intracranial arterial occlusion or aneurysmal changes seen. KG reveals normal sinus rhythm heart rate of 93. Was admitted to the hospital for neurology consultation. White blood cell count 7.70, hemoglobin 17.8, sodium 134, potassium 4.5, BUN of 8 creatinine of 0.53, glucose 301. REVIEW OF SYSTEMS: CONSTITUTIONAL: No fever, no malaise, no fatigue. HEENT: No recent visual problems or hearing problems. Denied any sore throat. CARDIOVASCULAR: No chest pain, orthopnea, PND, no palpitations, no syncope. PULMONARY: No shortness of breath, no cough, no hemoptysis. GASTROINTESTINAL: No diarrhea, no nausea, no vomiting, no abdominal pain. NEUROLOGICAL: No headaches. Reports right leg weakness; right sided numbness HEMATOLOGICAL: Denies any bleeding or petechiae. GENITOURINARY: Denies any burning micturition, frequency, or urgency. MUSCULOSKELETAL/RHEUMATOLOGICAL: Denies any joint pain, swelling, or any muscle pain. ENDOCRINE: Denies any polyuria or polydipsia. The rest of the 14-point review of systems is negative. PHYSICAL EXAMINATION: GENERAL: The patient is alert and oriented x3, not in any acute distress. Well developed, well nourished. HEENT: Pupils are round and equally reacting to light. EOMI. No scleral icterus. No conjunctival pallor. Normocephalic, atraumatic. No pharyngeal erythema. No thyromegaly. CARDIOVASCULAR: S1 and S2 present. No murmurs, rubs, or gallops. PULMONARY: Chest is clear to auscultation, no wheezing or crackles. ABDOMEN: Soft, nontender, nondistended, normoactive bowel sounds. No palpable organomegaly. MUSCULOSKELETAL: No joint swelling or deformity. EXTREMITIES: No cyanosis, clubbing, or pedal edema. NEUROLOGICAL: Gross neurological examination did not reveal any focal deficits. Right LE weakness SKIN: No rashes. Assessment Numbness of the right side of the body as well as right leg weakness rule out acute ischemic stroke Carotid artery disease Diabetes Mellitus type 2, uncontrolled Paroxysmal atrial fibrillation, not anticoagulated Hyponatremia Hyperlipidemia Morbid obesity Marijuana use DVT prophylaxis: Subcu heparin Full Code Plan Neurology consultation Continue stroke work up, Lipid panel, TSH, Echocardiogram and MRI ordered Resume home medications Lipitor has been increased to 40 mg daily, continue aspirin 81 mg daily Add accuchecks ACHS, humalog sliding scale insulin and check [id number] Outpatient vascular consultation The impression and plan of care has been dictated by Aminata Harrison, Nurse Practitioner as directed. Dr. Lauren MD I have performed a history and physical examination and medical decision making of this patient, discussed the same with the dictator, and agree with the dictators assessment and plan as written, documented as a scribe. Based on total visit time, I have performed more than 50% of this visit. Past Medical History Past Medical History: Atrial Fibrillation, Diabetes Mellitus, Hypertension History of Any Multi-Drug Resistant Organisms: None Reported Past Surgical History: No Surgical Hx Reported Past Anesthesia/Blood Transfusion Reactions: No Reported Reaction Past Psychological History: No Psychological Hx Reported Smoking Status: Never smoker Past Alcohol Use History: None Reported Past Drug Use History: None Reported - Past Family History Father Family Medical History: CVA/TIA, Diabetes Mellitus Mother Family Medical History: Diabetes Mellitus Medications and Allergies Home Medications Medication Instructions Recorded Confirmed Type Aspirin EC [Ecotrin Low Dose] 81 mg PO DAILY 06/30/24 10/29/24 History Atorvastatin [Lipitor] 20 mg PO DAILY 06/30/24 10/29/24 History Gabapentin [Neurontin] 300 mg PO DAILY PRN 06/30/24 10/29/24 History Losartan [Cozaar] 25 mg PO DAILY 06/30/24 10/29/24 History Metoprolol Succinate (ER) [Toprol 25 mg PO DAILY 30 Days #30 tab 07/04/24 10/29/24 Rx XL] Spironolactone [Aldactone] 25 mg PO DAILY 30 Days #30 tab 07/04/24 10/29/24 Rx Ergocalciferol [Vitamin D2 (1250 1,250 mcg PO MO 10/29/24 10/29/24 History Mcg = 09744 Iu)] Furosemide [Lasix] 20 mg PO DAILY 10/29/24 10/29/24 History Allergies Allergy/AdvReac Type Severity Reaction Status Date / Time No Known Allergies Allergy Verified 10/29/24 15:31 Physical Exam Vitals: Vital Signs Temp Pulse Resp BP Pulse Ox 10/29/24 11:00 98 17 139/89 96 10/29/24 09:16 98.7 F 101 H 17 191/86 96 Intake and Output 10/29/24 10/29/24 10/29/24 06:59 14:59 22:59 Other: Weight 151.953 kg Results CBC & Chem 7: 10/29/24 10:19 10/29/24 10:19 Labs: Abnormal Lab Results - Last 24 Hours (Table) 10/29/24 10/29/24 Range/Units 10:19 10:19 RBC 5.83 H (4.40-5.60) 10*6/uL Hgb 17.8 H (13.0-17.0) g/dL Hct 52.4 H (39.6-50.0) % Sodium 134 L (137-145) mmol/L Carbon Dioxide 20 L (22-30) mmol/L BUN 8 L (9-20) mg/dL Creatinine 0.53 L (0.66-1.25) mg/dL Glucose 301 H (74-99) mg/dL Assessment and Plan Time with Patient: Greater than 30
--- NOTE | 2024-10-29 16:25 | P.CNNES ---
History of Present Illness Consult date: 10/29/24 Requesting physician: Mikayla Burton Reason for Consult: right sided weakness, possible tia History of Present Illness: This is a 59 year-old gentleman who presents to the emergency department because of right sided weakness. He stated he noticed it initially about two weeks ago when he was with his friend trying to get into his car and noticed right sided weakness that lasted 5-10 minutes that resolved. Then noticed again about a week ago at home lasting same duration. Then today around 7ish am he noticed and continues to have right lower extremity weakness. He was up by 4- 5ish am and was doing well. He has uncontrolled Diabetes Mellitus and his sugar level in 200's and states probably HbA1c is 11-12. He states likely has uncontrolled hypertension. He takes ASA 81mg daily and sometimes misses to take his medication. He denies any history of A-fib and he followed up with business intelligence reporting analyst and not aware of A-fib he was told of. He smoke marijuana and it seems a significant amount. Denies any illicit drug use or alcohol use. Some of the work-up during this hospital visit consisted of: I reviewed the lab work-up. CT head: No acute intracranial abnormality seen. I personally reviewed CT head and agree with report. CTA head: Atherosclerostic calcification resulting in segmental moderate to severe stenosis in bilateral cavernous and clinoid sgement of the ICA. Additional focal moderate to severe stenosis A2 segment right DOC. No large vessel intracranial arterial occlusion or aneurysmal change is seen. CTA neck: Atherosclerotic calcification of bilateral carotid bifurcation resulting in moderate 60% setnosis at both distal CCA at the level of carotid bifurcation. Mild 30% stenosis at origin at the left ICA. Review of Systems As per HPI. Past Medical History Past Medical History: Atrial Fibrillation, Diabetes Mellitus, Hypertension History of Any Multi-Drug Resistant Organisms: None Reported Past Surgical History: No Surgical Hx Reported Past Anesthesia/Blood Transfusion Reactions: No Reported Reaction Past Psychological History: No Psychological Hx Reported Smoking Status: Never smoker Past Alcohol Use History: None Reported Past Drug Use History: None Reported - Past Family History Father Family Medical History: CVA/TIA, Diabetes Mellitus Mother Family Medical History: Diabetes Mellitus Medications and Allergies Home Medications Medication Instructions Recorded Confirmed Type Aspirin EC [Ecotrin Low Dose] 81 mg PO DAILY 06/30/24 06/30/24 History Atorvastatin [Lipitor] 20 mg PO DAILY 06/30/24 06/30/24 History Gabapentin [Neurontin] 300 mg PO DAILY 06/30/24 06/30/24 History Losartan [Cozaar] 25 mg PO DAILY 06/30/24 06/30/24 History Metoprolol Succinate (ER) [Toprol 25 mg PO DAILY 30 Days #30 tab 07/04/24 Rx XL] Spironolactone [Aldactone] 25 mg PO DAILY 30 Days #30 tab 07/04/24 Rx Ergocalciferol [Vitamin D2 (1250 1,250 mcg PO MO 10/29/24 10/29/24 History Mcg = 59804 Iu)] Furosemide [Lasix] 20 mg PO DAILY 10/29/24 10/29/24 History Allergies Allergy/AdvReac Type Severity Reaction Status Date / Time No Known Allergies Allergy Verified 10/29/24 15:31 Physical Examination - Vital Signs Vital Signs: Vital Signs Temp Pulse Resp BP Pulse Ox 10/29/24 11:00 98 17 139/89 96 10/29/24 09:16 98.7 F 101 H 17 191/86 96 Intake and Output 10/29/24 10/29/24 10/29/24 06:59 14:59 22:59 Other: Weight 151.953 kg GENERAL: The patient is morbidly obese gentleman, lying in bed and is not in acute distress. NEUROLOGICAL: Higher mental function: The patient is awake, alert, oriented to self, place and time. Patient is following commands. No aphasia and no neglect. Cranial nerves: The pupils are round, equal and reactive to light and accommodation. Visual correa are full to confrontation throughout. Extraocular movement is intact no nystagmus is noted. Facial sensation is normal to touch throughout. The facial strength is normal throughout. Hearing is normal bilaterally to hand rub. Tongue is midline and moved [id number] without any difficulty. No dysarthria is noted. Shoulder shrug is normal bilaterally. Motor: The strength is right lower extremity is 3-4 and states since this morning but otherwise 5 over 5 throughout. Normal tone and bulk. Cerebellum: Normal finger to nose heel to dover bilaterally. Sensation: Sensation is normal to touch throughout. Results - Laboratory Findings CBC and BMP: 10/29/24 10:19 10/29/24 10:19 Abnormal Lab Findings: Abnormal Labs 10/29/24 10/29/24 10:19 10:19 RBC 5.83 H Hgb 17.8 H Hct 52.4 H Sodium 134 L Carbon Dioxide 20 L BUN 8 L Creatinine 0.53 L Glucose 301 H Assessment and Plan Assessment: This is a 59 y/o gentleman who presents to ED because of right sided weakness that resulted in fall. He stated he had an episode of weakness about 2 weeks ago that resolved then a week ago then today. CT head is negative for acute process. CTA head/neck shows evidence of intracranial atherosclerotic disease ICAD. t seems he has uncontrolled DM, HTN, morbidly obese and sometimes forgets to take his meds. He denies A-fib but per primary team per medical records it is documented as A-fib. Likely acute ischemic stroke with Right sided weakness and now continues to have right lower weakness. Etiology is due to his multiple risk factors: uncontr olled DM, HTN, morbidly obesity, medication noncompliance and currently ICAD on imaging. No IV thrombolytic since outside window and risk outweigh the benefit. Intracranial atherosclortic disease ICAD. Moderate 60% setnosis at both distal CCA at the level of carotid bifurcation DM and uncontrolled HTN, uncontrolled at baseline History of ?A-fib per records but according to patient no A-fib. Excessive Marijuana use Medication noncompliance. Morbidly obese Plan: Ordered MRI Brain, 2D echo. Lipid panel ordered and pending. Patient was given ASA 325mg once. Start patient on ASA 81mg and Plavix 75mg daily. Loaded the patient on Plavix 300mg once loading once. For ?A-fib, spoke with primary team N.P. and they will try to find out about if truly has history and will defer the managemnet to primary team. If started on anticoagulation then no need for dual antiplatelets. Started the patient on Lipitor 80mg qhs. Continue neuro checks. Cardiac monitoring PT, OT and INFANT NANNY are consulted. Recommend permissive HTN for 24-48 hours patient was counseled on medication compliance, controlling his risk factors and decreasing consumption of marijuana. Also counseled on exercising and losing weight. Recommend following-up with vascular surgery team as outpatient within 2-3 weeks Will defer the rest of medical management to primary team. For DVT prophylaxis: Started on subq heparin. The plan is discussed with patient and primary team N.P. Thank you for the consultation Time with Patient: Greater than 30
[2024-10-29 16:57] LABS: Glucose,Whole Blood 317 mg/dL (70-110)
[2024-10-29] MEDS: CLOPIDOGREL 75 MG TAB PO STA (16:57)
[2024-10-29] MEDS: INSULIN LISPRO (HumaLOG) 100 UNIT/ML 10 mL VL SQ SCH (18:21)
[2024-10-29 19:48] LABS: Glucose,Whole Blood 284 mg/dL (70-110)
[2024-10-29] MEDS: ATORVASTATIN 80 MG TAB PO SCH (22:08)
[2024-10-29] MEDS: HEPARIN SODIUM,PORCINE 5,000 UNIT/ML 1 ML VIAL SQ SCH (22:09)
[2024-10-30 05:58] LABS: Glucose,Whole Blood 114 mg/dL (70-110)
[2024-10-30] MEDS: SPIRONOLACTONE 25 MG TAB PO SCH (09:30)
[2024-10-30] MEDS: FUROSEMIDE 20 MG TAB PO SCH (09:30)
[2024-10-30] MEDS: METOPROLOL SUCCINATE (ER) 25 MG TAB.ER.24H PO SCH (09:30)
[2024-10-30] MEDS: CLOPIDOGREL 75 MG TAB PO SCH (09:30)
[2024-10-30] MEDS: ASPIRIN 81 MG PO SCH (09:30)
[2024-10-30 10:07] LABS: BUN/Creat Ratio 20.17 Ratio (12.00-20.00); Blood Urea Nitrogen 12.1 mg/dL (9.0-27.0); Calcium 9.5 mg/dL (8.7-10.3); Carbon Dioxide 20.6 mmol/L (21.6-31.8); Chloride 99 mmol/L (96-109); Chol/HDL Ratio 6.55 Ratio; Glucose 116 mg/dL (70-110); LDL Cholesterol,Calculated 108.4 mg/dL (0.0-131.0); Potassium 3.8 mmol/L (3.5-5.5); Sodium 136 mmol/L (135-145)
[2024-10-30] MEDS: LOSARTAN 25 MG TAB PO SCH (10:09)
[2024-10-30] MEDS: LOSARTAN 50 MG TAB PO SCH (10:12)
[2024-10-30 12:05] LABS: Glucose,Whole Blood 266 mg/dL (70-110)
--- NOTE | 2024-10-30 12:32 | CA ---
Transthoracic Echo Report Name: Samuel Andrade Age: 59 Gender: M : 1965 Exam Date: 10/30/2024 07:39 Exam Location: [place] [facility] Ht (in): Wt (lb): Ordering Physician: Ramiro Coronado MD Attending/Referring Phys: Aluminum Boat Inspector Angelica Vásquez RDCS Procedure CPT: Indications: stroke Cardiac Hx: Technical Quality: Poor, Technically difficult study, Bubble study not done due to poor image quality. Contrast 1: Total Dose (mL): Contrast 2: Total Dose (mL): MEASUREMENTS (Male / Female) Normal Values 2D ECHO LV Diastolic Diameter PLAX 3.8 cm 4.2 - 5.9 / 3.9 - 5.3 cm LV Systolic Diameter PLAX 3.4 cm IVS Diastolic Thickness 1.3 cm 0.6 - 1.0 / 0.6 - 0.9 cm LVPW Diastolic Thickness 1.5 cm 0.6 - 1.0 / 0.6 - 0.9 cm LV Relative Wall Thickness 0.7 RV Internal Dim ED PLAX 2.8 cm LA Systolic Diameter LX 3.8 cm 3.0 - 4.0 / 2.7 - 3.8 cm M-MODE Aortic Root Diameter MM 3.7 cm LA Systolic Diameter MM 3.2 cm LA Ao Ratio MM 0.9 AV Cusp Separation MM 1.8 cm FINDINGS Left Ventricle Left ventricular ejection fraction is estimated at 45%. Mildly increased septal wall thickness. Left ventricular cavity size normal. Mildly reduced global left ventricular systolic function. Right Ventricle Right Atrium Left Atrium Mitral Valve Aortic Valve Tricuspid Valve Pulmonic Valve Pericardium No pericardial or pleural effusion. Aorta Aorta at upper limits of normal. CONCLUSIONS Technically difficult study Left ventricular ejection fraction 45% Unable to perform bubble study secondary to poor windows, consider NEGRA if clinically indicated Previewed by: Dr. Jose Caraballo DO (Electronically Signed) Final Date: 30 Oct 2024 12:31
--- NOTE | 2024-10-30 13:20 | P.PN ---
Subjective Progress Note Date: 10/30/24 I am following-up with the patient and he feels he is doing better. Feels strength on the right side is improved. Denies any new neurological issues. Objective - Vital Signs Vital signs: Vital Signs Temp 98.0 F 10/30/24 06:55 Pulse 75 10/30/24 06:55 Resp 16 10/30/24 06:55 BP 197/93 10/30/24 06:55 Pulse Ox 96 10/30/24 08:51 FiO2 Intake & Output 10/29/24 10/30/24 10/30/24 18:59 06:59 18:59 Intake Total 354 Balance 354 Weight 151.953 kg 151.953 kg Intake: Oral 354 Other: # Voids 3 # Bowel Movements 1 - Exam GENERAL: The patient is morbidly obese gentleman, lying in bed and is not in acute distress. NEUROLOGICAL: Higher mental function: The patient is awake, alert, oriented to self, place and time. Patient is following commands. No aphasia and no neglect. Cranial nerves: The pupils are round, equal and reactive to light and accommodation. Visual correa are full to confrontation throughout. Extraocular movement is intact no nystagmus is noted. Facial sensation is normal to touch throughout. The facial strength is normal throughout. Hearing is normal bilaterally to hand rub. Tongue is midline and moved [id number] without any difficulty. No dysarthria is noted. Shoulder shrug is normal bilaterally. Motor: The strength is 5 over 5 throughout. Normal tone and bulk. Cerebellum: Normal finger to nose heel to dover bilaterally. Sensation: Sensation is normal to touch throughout. Some of the work-up during this hospital visit consisted of: HbA1c: 13.1 Lipid panel: TG 157, cholestrol 165, LDL [address] head: No acute intracranial abnormality seen. I personally reviewed CT head and agree with report. CTA head: Atherosclerostic calcification resulting in segmental moderate to severe stenosis in bilateral cavernous and clinoid sgement of the ICA. Additional focal moderate to severe stenosis A2 segment right DOC. No large vessel intracranial arterial occlusion or aneurysmal change is seen. CTA neck: Atherosclerotic calcification of bilateral carotid bifurcation resulting in moderate 60% setnosis at both distal CCA at the level of carotid bifurcation. Mild 30% stenosis at origin at the left ICA. - Labs CBC & Chem 7: 10/29/24 10:19 10/30/24 05:33 Labs: Abnormal Lab Results - Last 24 Hours (Table) 10/29/24 10/29/24 10/30/24 Range/Units 16:56 19:45 05:33 Carbon Dioxide (21.6-31.8) mmol/L Anion Gap (4.00-12.00) mmol/L BUN/Creatinine Ratio (12.00-20.00) Ratio Glucose (70-110) mg/dL POC Glucose (mg/dL) 317 H 284 H (70-110) mg/dL Hemoglobin A1c 13.1 H (<=6.0) % Triglycerides (0.00-149.00) mg/dL HDL Cholesterol (40.00-60.00) mg/dL 10/30/24 10/30/24 10/30/24 Range/Units 05:33 05:54 12:04 Carbon Dioxide 20.6 L (21.6-31.8) mmol/L Anion Gap 16.40 H (4.00-12.00) mmol/L BUN/Creatinine Ratio 20.17 H (12.00-20.00) Ratio Glucose 116 H (70-110) mg/dL POC Glucose (mg/dL) 114 H 266 H (70-110) mg/dL Hemoglobin A1c (<=6.0) % Triglycerides 157.00 H (0.00-149.00) mg/dL HDL Cholesterol 25.20 L (40.00-60.00) mg/dL Assessment and Plan Assessment: This is a 59 y/o gentleman who presents to ED because of right sided weakness that resulted in fall. He stated he had an episode of weakness about 2 weeks ago that resolved then a week ago then today. CT head is negative for acute process. CTA head/neck shows evidence of intracranial atherosclerotic disease ICAD. t seems he has uncontrolled DM, HTN, morbidly obese and sometimes forgets to take his meds. He denies A-fib but per primary team per medical records it is documented as A-fib. Likely acute ischemic stroke with Right sided weakness. Currently symptoms resolved. Etiology is due to his multiple risk factors: uncontrolled DM, HTN, morbidly obesity, medication noncompliance and currently ICAD on imaging. No IV thrombolytic since outside window and risk outweigh the benefit. Intracranial atherosclortic disease ICAD. Moderate 60% setnosis at both distal CCA at the level of carotid bifurcation DM and uncontrolled. HbA1c is 13.1 HTN, uncontrolled at baseline History of ?A-fib per records but according to patient no A-fib. Excessive Marijuana use Medication noncompliance. Morbidly obese Plan: pending MRI Brain, 2D echo. Patient was given ASA 325mg once. Start patient on ASA 81mg and Plavix 75mg daily. Loaded the patient on Plavix 300mg once loading once. For ?A-fib, spoke with primary team N.P. and they will try to find out about if truly has history and will defer the managemnet to primary team. If started on anticoagulation then no need for dual antiplatelets. Started the patient on Lipitor 80mg qhs. Continue neuro checks. Cardiac monitoring PT, OT and REWRITER are consulted. Recommend permissive HTN for 24 hours Patient was counseled on medication compliance, controlling his risk factors and decreasing consumption of marijuana. Also counseled on exercising and losing weight. Recommend following-up with vascular surgery team as outpatient within 2-3 weeks Will defer the rest of medical management to primary team. For DVT prophylaxis: Subq heparin. Time with Patient: Less than 30
--- NOTE | 2024-10-30 15:43 | P.PN ---
Subjective Progress Note Date: 10/30/24 This is a pleasant 59-year-old male with medical history significant for hypertension, hyperlipidemia, diabetes mellitus type 2, atrial fibrillation, marijuana use. Patient is a non-smoker. He comes into the hospital with a 3- day complaint of intermittent numbness affecting the right upper lower extremit y. Additionally he states that he is having right leg weakness that began 3 days ago as well. He states that this first happened when he was getting out of his truck his entire right side became numb and he fell. It happened 2 more times. He states that he initially attributed it to his marijuana use however decided to come into the hospital for further evaluation. He was feeling dizzy and lightheaded as well. He denies any chest pain or shortness of breath. He does have some right lower extremity weakness. His initial NIH score was 0. He has no prior history of stroke. Chest x-ray reveals interstitial prominence may be due to technical factors there is borderline heart size. No airspace disease or pleural effusion is seen. Brain CT reveals no acute intracranial abnormality. CT angiography reveals atherosclerotic plaque from the bilateral carotid bifurcations resulting in moderate 60% narrowing within both the level of the carotid bifurcation. Mild 30% stenosis of the origin from the left ICA. Atherosclerotic ossification resulting in segmental moderate to severe stenosis in the bilateral cavernous and clinoid segments of the ICAs additional focal moderate to severe stenosis of A2 segment of the right ICA no large vessel intracranial arterial occlusion or aneurysmal changes seen. KG reveals normal sinus rhythm heart rate of 93. Was admitted to the hospital for neurology consultation. White blood cell count 7.70, hemoglobin 17.8, sodium 134, potassium 4.5, BUN of 8 creatinine of 0.53, glucose 301. 10/30/2024 Patient is evaluated today in follow up on the observation unit. Had an echocardiogram revealing EF 45%. Unable to complete the bubble study. EF is improved from prior. He is also pending brain MRI. No further reports of right sided numbness. Currently on aspirin, plavix and lipitor. Hemoglobin A1C 13.1, triglycerides 13.1, BUN 12.1, creatinine 0.6. Triglyceride level 157, cholesterol 165, LDL 108, HDL 25.20. REVIEW OF SYSTEMS: CONSTITUTIONAL: No fever, no malaise, no fatigue. HEENT: No recent visual problems or hearing problems. Denied any sore throat. CARDIOVASCULAR: No chest pain, orthopnea, PND, no palpitations, no syncope. PULMONARY: No shortness of breath, no cough, no hemoptysis. GASTROINTESTINAL: No diarrhea, no nausea, no vomiting, no abdominal pain. NEUROLOGICAL: No headaches. Reports right leg weakness; right sided numbness PHYSICAL EXAMINATION: GENERAL: The patient is alert and oriented x3, not in any acute distress. Well developed, well nourished. HEENT: Pupils are round and equally reacting to light. EOMI. No scleral icterus. No conjunctival pallor. Normocephalic, atraumatic. No pharyngeal erythema. No t hyromegaly. CARDIOVASCULAR: S1 and S2 present. No murmurs, rubs, or gallops. PULMONARY: Chest is clear to auscultation, no wheezing or crackles. ABDOMEN: Soft, nontender, nondistended, normoactive bowel sounds. No palpable organomegaly. MUSCULOSKELETAL: No joint swelling or deformity. EXTREMITIES: No cyanosis, clubbing, or pedal edema. NEUROLOGICAL: Gross neurological examination did not reveal any focal deficits. Right LE weakness SKIN: No rashes. Assessment Numbness of the right side of the body as well as right leg weakness rule out acute ischemic stroke Carotid artery disease Diabetes Mellitus type 2, uncontrolled Questionable history of afib Chronic systolic heart failure with no acute exacerbation Hyponatremia Hyperlipidemia Morbid obesity Marijuana use DVT prophylaxis: Subcu heparin Full Code Plan Neurology consultation Continue stroke work up, Lipid panel, TSH, Pending brain MRI Resume home medications Lipitor has been increased to 40 mg daily, continue aspirin 81 mg daily, continue plavix 75 mg daily Add accuchecks ACHS, humalog sliding scale insulin Outpatient vascular consultation The impression and plan of care has been dictated by Aminata Harrison, Nurse Practitioner as directed. Dr. Lauren MD I have performed a history and physical examination and medical decision making of this patient, discussed the same with the dictator, and agree with the dictators assessment and plan as written, documented as a scribe. Based on total visit time, I have performed more than 50% of this visit. Objective - Vital Signs Vital signs: Vital Signs Temp 98.4 F 10/30/24 13:10 Pulse 81 10/30/24 13:10 Resp 16 10/30/24 13:10 BP 114/76 10/30/24 13:10 Pulse Ox 96 10/30/24 13:10 FiO2 Intake & Output 10/29/24 10/30/24 10/30/24 18:59 06:59 18:59 Intake Total 354 Balance 354 Weight 151.953 kg 151.953 kg Intake: Oral 354 Other: # Voids 3 1 # Bowel Movements 1 0 - Labs CBC & Chem 7: 10/29/24 10:19 10/30/24 05:33 Labs: Abnormal Lab Results - Last 24 Hours (Table) 10/29/24 10/29/24 10/30/24 Range/Units 16:56 19:45 05:33 Carbon Dioxide (21.6-31.8) mmol/L Anion Gap (4.00-12.00) mmol/L BUN/Creatinine Ratio (12.00-20.00) Ratio Glucose (70-110) mg/dL POC Glucose (mg/dL) 317 H 284 H (70-110) mg/dL Hemoglobin A1c 13.1 H (<=6.0) % Triglycerides (0.00-149.00) mg/dL HDL Cholesterol (40.00-60.00) mg/dL 10/30/24 10/30/24 10/30/24 Range/Units 05:33 05:54 12:04 Carbon Dioxide 20.6 L (21.6-31.8) mmol/L Anion Gap 16.40 H (4.00-12.00) mmol/L BUN/Creatinine Ratio 20.17 H (12.00-20.00) Ratio Glucose 116 H (70-110) mg/dL POC Glucose (mg/dL) 114 H 266 H (70-110) mg/dL Hemoglobin A1c (<=6.0) % Triglycerides 157.00 H (0.00-149.00) mg/dL HDL Cholesterol 25.20 L (40.00-60.00) mg/dL Assessment and Plan Time with Patient: Less than 30
[2024-10-30 17:16] LABS: Glucose,Whole Blood 291 mg/dL (70-110)
[2024-10-30 20:02] LABS: Glucose,Whole Blood 243 mg/dL (70-110)
[2024-10-31 05:35] LABS: Glucose,Whole Blood 194 mg/dL (70-110)
[2024-10-31] MEDS: LOSARTAN 25 MG TAB PO SCH (08:56)
[2024-10-31 12:27] LABS: Glucose,Whole Blood 325 mg/dL (70-110)
[2024-10-31] MEDS: INSULIN GLARGINE (LANTUS) 100 UNIT/ML SYR SQ SCH (13:02)
--- NOTE | 2024-10-31 13:12 | P.PN ---
Subjective Progress Note Date: 10/31/24 This is a pleasant 59-year-old male with medical history significant for hypertension, hyperlipidemia, diabetes mellitus type 2, atrial fibrillation, marijuana use. Patient is a non-smoker. He comes into the hospital with a 3- day complaint of intermittent numbness affecting the right upper lower extremit y. Additionally he states that he is having right leg weakness that began 3 days ago as well. He states that this first happened when he was getting out of his truck his entire right side became numb and he fell. It happened 2 more times. He states that he initially attributed it to his marijuana use however decided to come into the hospital for further evaluation. He was feeling dizzy and lightheaded as well. He denies any chest pain or shortness of breath. He does have some right lower extremity weakness. His initial NIH score was 0. He has no prior history of stroke. Chest x-ray reveals interstitial prominence may be due to technical factors there is borderline heart size. No airspace disease or pleural effusion is seen. Brain CT reveals no acute intracranial abnormality. CT angiography reveals atherosclerotic plaque from the bilateral carotid bifurcations resulting in moderate 60% narrowing within both the level of the carotid bifurcation. Mild 30% stenosis of the origin from the left ICA. Atherosclerotic ossification resulting in segmental moderate to severe stenosis in the bilateral cavernous and clinoid segments of the ICAs additional focal moderate to severe stenosis of A2 segment of the right ICA no large vessel intracranial arterial occlusion or aneurysmal changes seen. KG reveals normal sinus rhythm heart rate of 93. Was admitted to the hospital for neurology consultation. White blood cell count 7.70, hemoglobin 17.8, sodium 134, potassium 4.5, BUN of 8 creatinine of 0.53, glucose 301. 10/30/2024 Patient is evaluated today in follow up on the observation unit. Had an echocardiogram revealing EF 45%. Unable to complete the bubble study. EF is improved from prior. He is also pending brain MRI. No further reports of right sided numbness. Currently on aspirin, plavix and lipitor. Hemoglobin A1C 13.1, triglycerides 13.1, BUN 12.1, creatinine 0.6. Triglyceride level 157, cholesterol 165, LDL 108, HDL 25.20. 10/31/2024 Patient is currently evaluated today in follow-up on the observation unit. He will be started on a low-dose of Lantus secondary to his elevated blood glucose. He is still pending a brain MRI. He is on aspirin Plavix and Lipitor. Neurology is following this patient closely. His right leg is no longer weak. He has no acute complaints. Will need to check with doctor office tomorrow whether there is history of A fib or not. REVIEW OF SYSTEMS: CONSTITUTIONAL: No fever, no malaise, no fatigue. HEENT: No recent visual problems or hearing problems. Denied any sore throat. CARDIOVASCULAR: No chest pain, orthopnea, PND, no palpitations, no syncope. PULMONARY: No shortness of breath, no cough, no hemoptysis. GASTROINTESTINAL: No diarrhea, no nausea, no vomiting, no abdominal pain. NEUROLOGICAL: No headaches. Reports right leg weakness; right sided numbness PHYSICAL EXAMINATION: GENERAL: The patient is alert and oriented x3, not in any acute distress. Well developed, well nourished. HEENT: Pupils are round and equally reacting to light. EOMI. No scleral icterus. No conjunctival pallor. Normocephalic, atraumatic. No pharyngeal erythema. No thyromegaly. CARDIOVASCULAR: S1 and S2 present. No murmurs, rubs, or gallops. PULMONARY: Chest is clear to auscultation, no wheezing or crackles. ABDOMEN: Soft, nontender, nondistended, normoactive bowel sounds. No palpable organomegaly. MUSCULOSKELETAL: No joint swelling or deformity. EXTREMITIES: No cyanosis, clubbing, or pedal edema. NEUROLOGICAL: Gross neurological examination did not reveal any focal deficits. Right LE weakness SKIN: No rashes. Assessment Numbness of the right side of the body as well as right leg weakness rule out acute ischemic stroke Carotid artery disease Diabetes Mellitus type 2, uncontrolled Questionable history of afib Chronic systolic heart failure with no acute exacerbation Hyponatremia Hyperlipidemia Morbid obesity Marijuana use DVT prophylaxis: Subcu heparin Full Code Plan Neurology consultation Continue stroke work up, Lipid panel, TSH, Pending brain MRI Resume home medications Lipitor has been increased to 40 mg daily, continue aspirin 81 mg daily, continue plavix 75 mg daily Add accuchecks ACHS, humalog sliding scale insulin Outpatient vascular consultation The impression and plan of care has been dictated by Aminata Harrison, Nurse Practitioner as directed. Dr. Lauren MD I have performed a history and physical examination and medical decision making of this patient, discussed the same with the dictator, and agree with the dictators assessment and plan as written, documented as a scribe. Based on total visit time, I have performed more than 50% of this visit. Objective - Vital Signs Vital signs: Vital Signs Temp 98.1 F 10/31/24 06:40 Pulse 80 10/31/24 06:40 Resp 16 10/31/24 06:40 BP 129/82 10/31/24 06:40 Pulse Ox 95 10/31/24 06:40 FiO2 Intake & Output 10/30/24 10/31/24 10/31/24 18:59 06:59 18:59 Intake Total 576 118 Balance 576 118 Intake: Oral 576 118 Other: # Voids 1 2 # Bowel Movements 0 - Labs CBC & Chem 7: 10/29/24 10:19 10/30/24 05:33 Labs: Abnormal Lab Results - Last 24 Hours (Table) 10/30/24 10/30/24 10/30/24 Range/Units 05:33 05:33 12:04 Carbon Dioxide 20.6 L (21.6-31.8) mmol/L Anion Gap 16.40 H (4.00-12.00) mmol/L BUN/Creatinine Ratio 20.17 H (12.00-20.00) Ratio Glucose 116 H (70-110) mg/dL POC Glucose (mg/dL) 266 H (70-110) mg/dL Hemoglobin A1c 13.1 H (<=6.0) % Triglycerides 157.00 H (0.00-149.00) mg/dL HDL Cholesterol 25.20 L (40.00-60.00) mg/dL 10/30/24 10/30/24 10/31/24 Range/Units 17:10 19:59 05:34 Carbon Dioxide (21.6-31.8) mmol/L Anion Gap (4.00-12.00) mmol/L BUN/Creatinine Ratio (12.00-20.00) Ratio Glucose (70-110) mg/dL POC Glucose (mg/dL) 291 H 243 H 194 H (70-110) mg/dL Hemoglobin A1c (<=6.0) % Triglycerides (0.00-149.00) mg/dL HDL Cholesterol (40.00-60.00) mg/dL Assessment and Plan Time with Patient: Less than 30
[2024-10-31 17:12] LABS: Glucose,Whole Blood 227 mg/dL (70-110)
[2024-10-31 20:10] LABS: Glucose,Whole Blood 296 mg/dL (70-110)
[2024-11-01 05:46] LABS: Glucose,Whole Blood 265 mg/dL (70-110)
[2024-11-01] MEDS: ERGOCALCIFEROL 1,250 MCG (50,000 IU) CAPSULE PO SCH (08:41)
--- NOTE | 2024-11-01 10:32 | MR ---
EXAMINATION TYPE: MR brain wo con DATE OF EXAM: 11/01/2024 COMPARISON: CT brain October 29, 2024 HISTORY: Acute right sided weakness. TECHNIQUE: Multiplanar, multisequence imaging of the brain and brainstem is performed without IV cont rast. FINDINGS: Diffusion weighted images demonstrate few (3-5) tiny (2-3mm) foci of increased signal on diffusion we ighted images with diminished signal on ADC mapping in the posterior left frontal lobe at level of th e centrum semiovale corresponding to subtle tiny T2 hyperintense foci consistent with evolving acute lacunar infarcts. There is no extraaxial fluid collection. Mild ventricular and sulcal prominence. Midline structures demonstrate normal morphology. The craniocervical junction appears within normal limits. Normal vascular flow voids are present. Bilateral aphakia is redemonstrated. Paranasal sinuse s are grossly clear. Small amount of fluid in the right mastoid air cells is present. Correlate to ex clude possible mild acute mastoiditis. IMPRESSION: 1. Evolving nearby tiny acute lacunar infarcts in the left posterior frontal lobe at level of the titi trum semiovale. [facility], , 11/01/2024 10:30 AM
[2024-11-01 11:15] VITALS: BMI 57.4
[2024-11-01 12:08] LABS: Glucose,Whole Blood 355 mg/dL (70-110)
--- NOTE | 2024-11-01 14:56 | P.GSCN ---
History of Present Illness Consult date: 11/01/24 Reason for Consult: Carotid stenosis with stroke Requesting physician: Ramiro Coronado History of present illness: This is a pleasant 59-year-old female who was brought into the hospital emergency department [place] with complaints of right-sided weakness. Apparently patient had symptoms couple weeks ago where he had right upper extremity and lower extremity weakness that last about 5 to 10 minutes. Again about a week ago and then on Friday morning. Reported past medical history includes morbid obesity, diabetes mellitus and hypertension. Patient does smoke marijuana, denies tobacco use. Patient had workup for stroke. Brain CT was negative, he had a CT angiogram head and neck that reports approximately 30% left ICA stenosis. He had MRI of the brain today that shows evolving left frontal stroke. Vascular surgery was consulted secondary to ICA stenosis with stroke. Patient was started on Plavix 75 mg daily and atorvastatin 80 mg at bedtime, patient had been taking 81 mg daily aspirin prior to admission when he remembered. Patient's hemoglobin A1c 13.1 Review of Systems A 14 point review systems was completed all pertinent positives and negatives as stated in the HPI. Past Medical History Past Medical History: Atrial Fibrillation, Heart Failure, Diabetes Mellitus, Hyperlipidemia, Hypertension Additional Past Medical History / Comment(s): cataracts History of Any Multi-Drug Resistant Organisms: None Reported Past Surgical History: No Surgical Hx Reported Past Anesthesia/Blood Transfusion Reactions: No Reported Reaction Past Psychological History: No Psychological Hx Reported Smoking Status: Never smoker Past Alcohol Use History: None Reported Past Drug Use History: None Reported - Past Family History Father Family Medical History: CVA/TIA, Diabetes Mellitus Mother Family Medical History: CVA/TIA, Diabetes Mellitus Medications and Allergies Home Medications Medication Instructions Recorded Confirmed Type Aspirin EC [Ecotrin Low Dose] 81 mg PO DAILY 06/30/24 10/29/24 History Atorvastatin [Lipitor] 20 mg PO DAILY 06/30/24 10/29/24 History Gabapentin [Neurontin] 300 mg PO DAILY PRN 06/30/24 10/29/24 History Losartan [Cozaar] 25 mg PO DAILY 06/30/24 10/29/24 History Metoprolol Succinate (ER) [Toprol 25 mg PO DAILY 30 Days #30 tab 07/04/24 10/29/24 Rx XL] Spironolactone [Aldactone] 25 mg PO DAILY 30 Days #30 tab 07/04/24 10/29/24 Rx Ergocalciferol [Vitamin D2 (1250 1,250 mcg PO MO 10/29/24 10/29/24 History Mcg = 26115 Iu)] Furosemide [Lasix] 20 mg PO DAILY 10/29/24 10/29/24 History Allergies Allergy/AdvReac Type Severity Reaction Status Date / Time No Known Allergies Allergy Verified 10/29/24 15:31 Surgical - Exam Vital Signs Temp Pulse Resp BP Pulse Ox 98.7 F 101 H 17 191/86 96 10/29/24 09:16 10/29/24 09:16 10/29/24 09:16 10/29/24 09:16 10/29/24 09:16 General appearance: The patient is alert, oriented, appears in no acute distress . HET: Head is normocephalic and atraumatic. Pupils are equal and reactive. Neck: Supple. Heart: Regular. Lungs: Equal expansion, normal respiratory effort. Abdomen: Soft, nontender, nondistended. Extremities: Normal skin color and turgor. Neurological: No focal deficits. Strength and sensation are grossly intact. Results - Labs 10/29/24 10:19 10/30/24 05:33 Abnormal Lab Results - Last 24 Hours (Table) 10/31/24 10/31/24 11/01/24 Range/Units 17:04 20:08 05:44 POC Glucose (mg/dL) 227 H 296 H 265 H (70-110) mg/dL 11/01/24 Range/Units 12:07 POC Glucose (mg/dL) 355 H (70-110) mg/dL - Imaging Comments: CT angiogram head and neck reports atherosclerotic change of the bilateral carotid bifurcations resulting in moderate, 60% stenosis at both distal common carotid arteries at the level of the carotid bifurcation. Additional mild, 30% stenosis at the origin of the left ICA. Atherosclerotic calcification resulting in segmental moderate to severe stenosis in the bilateral cavernous and clinoid segments of the ICAs. Additional focal moderate to severe stenosis A2 segment right DOC. No large vessel intracranial arterial occlusion or aneurysmal changes seen. Echocardiogram reports technically difficult study. Left ventricular EF 45%. Unable to perform bubble study secondary to poor windows, consider NEGRA next MRI brain without contrast reports evolving nearby tiny acute lacunar infarcts in the left posterior frontal lobe at the level of the centrum semioval Assessment and Plan Assessment: 1. Acute lacunar infarcts in the left posterior frontal lobe 2. Left ICA stenosis at 30% 3. Moderate stenosis bilateral distal common carotid arteries 4. Diabetes mellitus 5. Hypertension 6. Morbid obesity 7. Reported history per chart atrial fibrillation however patient does not recall any diagnosis but did recall following with cardiology up until 1-/2 2 years ago Plan: 1. Recommend strict glycemic control 2. Continue aspirin 81 mg daily, Plavix and statin as ordered 3. Physical therapy/Occupational Therapy 4. Continue with recommendations from neurology Case discussed with vascular surgeon, with left ICA stenosis at 30% would not recommend surgical intervention. Consider interventional neurology consultation/referral for moderate to severe stenosis in bilateral cavernous and clinoid segments of the ICAs and focal moderate to severe stenosis A2 segment right DOC will defer to neurology. Further recommendations forthcoming from [place] scular surgeon. Thank you for this consultation, we will continue to follow. The impression and plan of care has been dictated as directed. I performed a history and examination of this patient, discussed the same with the dictator. I agree with the dictator's note ,documented as a scribe. Any additional findings or plans will be noted.
[2024-11-01 17:13] LABS: Glucose,Whole Blood 296 mg/dL (70-110)
--- NOTE | 2024-11-01 17:20 | P.PN ---
Subjective Progress Note Date: 11/01/24 I am following up with the patient he continues to be doing well compared to initial presentation. Denies of any neurological issues. Objective - Vital Signs Vital signs: Vital Signs Temp 98.4 F 11/01/24 14:56 Pulse 68 11/01/24 14:56 Resp 16 11/01/24 14:56 BP 122/70 11/01/24 14:56 Pulse Ox 96 11/01/24 14:56 FiO2 Intake & Output 10/31/24 11/01/24 11/01/24 18:59 06:59 18:59 Intake Total 340 118 Balance 340 118 Weight 151.953 kg Intake: Oral 340 118 Other: # Voids 2 2 3 # Bowel Movements 1 - Exam GENERAL: The patient is morbidly obese gentleman, lying in bed and is not in acute distress. NEUROLOGICAL: Higher mental function: The patient is awake, alert, oriented to self, place and time. Patient is following commands. No aphasia and no neglect. Cranial nerves: The pupils are round, equal and reactive to light and accomm odation. Visual correa are full to confrontation throughout. Extraocular movement is intact no nystagmus is noted. Facial sensation is normal to touch throughout. The facial strength is normal throughout. Hearing is normal bilaterally to hand rub. Tongue is midline and moved [id number] without any difficulty. No dysarthria is noted. Shoulder shrug is normal bilaterally. Motor: The strength is 5 over 5 throughout. Normal tone and bulk. Cerebellum: Normal finger to nose heel to dover bilaterally. Sensation: Sensation is normal to touch throughout. Some of the work-up during this hospital visit consisted of: HbA1c: 13.1 Lipid panel: TG 157, cholestrol 165, LDL [address] head: No acute intracranial abnormality seen. I personally reviewed CT head and agree with report. CTA head: Atherosclerostic calcification resulting in segmental moderate to severe stenosis in bilateral cavernous and clinoid sgement of the ICA. Additional focal moderate to severe stenosis A2 segment right DOC. No large vessel intracranial arterial occlusion or aneurysmal change is seen. CTA neck: Atherosclerotic calcification of bilateral carotid bifurcation resulting in moderate 60% setnosis at both distal CCA at the level of carotid bifurcation. Mild 30% stenosis at origin at the left ICA. MRI of the brain is reported as evolving nearby tiny acute lacunar infarct in the left posterior frontal lobe at the level of the centrum ovale 2D echo was reported as technically difficult study. Left atrial ejection fraction 45%. Unable to perform bubble study secondary due to poor window. Co nsider NEGRA if clinically indicated - Labs CBC & Chem 7: 10/29/24 10:19 10/30/24 05:33 Labs: Abnormal Lab Results - Last 24 Hours (Table) 10/31/24 10/31/24 11/01/24 Range/Units 17:04 20:08 05:44 POC Glucose (mg/dL) 227 H 296 H 265 H (70-110) mg/dL 11/01/24 Range/Units 12:07 POC Glucose (mg/dL) 355 H (70-110) mg/dL Assessment and Plan Assessment: This is a 59 y/o gentleman who presents to ED because of right sided weakness that resulted in fall. He stated he had an episode of weakness about 2 weeks ago that resolved then a week ago then today. CT head is negative for acute process. CTA head/neck shows evidence of intracranial atherosclerotic disease ICAD. t seems he has uncontrolled DM, HTN, morbidly obese and sometimes forgets to take his meds. He denies A-fib but per primary team per medical records it is documented as A-fib. Likely acute ischemic stroke with Right sided weakness--Currently symptoms resolved. MRI of the brain is reported as evolving nearby tiny acute lacunar infarct in the left posterior frontal lobe at the level of the centrum ovale. Etiology is due to his multiple risk factors: uncontrolled DM, HTN, morbidly obesity, medication noncompliance and currently ICAD on imaging. No IV thrombolytic since outside window and risk outweigh the benefit. Intracranial atherosclortic disease ICAD. Moderate 60% setnosis at both distal CCA at the level of carotid bifurcation. Per vascular surgery they felt left carotid on the stroke region left ICA is about 30% stenosis. DM and uncontrolled. HbA1c is 13.1 HTN, uncontrolled at baseline History of ?A-fib per records but according to patient no A-fib. Systolic heart failure with ejection fraction of 45% Excessive Marijuana use Medication noncompliance. Morbidly obese Plan: Continue ASA 81mg and Plavix 75mg daily. Recommend dual antiplatelet for total of 3 months and after that monotherapy because of iCAD then after that only ASA. For ?A-fib, spoke with primary team N.P. and they will try to find out about if truly has history and will defer the managemnet to primary team. According to the nurse practitioner primary team there is no evidence of A-fib when she reviewed the records. Started the patient on Lipitor 80mg qhs. Continue neuro checks. Cardiac monitoring PT, OT and PIPE RECOVERY SPECIALIST are consulted. Vascular surgery team recommended intervention neurologist consultation and will have the patient to follow-up with Dr. Mak as an outpatient within 2-3 weeks. Vascular surgery team felt left ICA stenosis was 30%. Patient was counseled on medication compliance, controlling his risk factors and decreasing consumption of marijuana. Also counseled on exercising and losing weight. Recommend following-up with vascular surgery team as outpatient within 2-3 weeks Will defer the rest of medical management to primary team. For DVT prophylaxis: Subq heparin. Recommend the patient to follow-up with a neurologist as an outpatient within 2 to 3 weeks. Otherwise no additional neurological workup. Will sign off. Please reconsult if needed. Time with Patient: Less than 30
[2024-11-01 20:30] LABS: Glucose,Whole Blood 198 mg/dL (70-110)
--- NOTE | 2024-11-01 20:49 | P.PN ---
Subjective Progress Note Date: 11/01/24 This is a pleasant 59-year-old male with medical history significant for hypertension, hyperlipidemia, diabetes mellitus type 2, atrial fibrillation, marijuana use. Patient is a non-smoker. He comes into the hospital with a 3- day complaint of intermittent numbness affecting the right upper lower extremit y. Additionally he states that he is having right leg weakness that began 3 days ago as well. He states that this first happened when he was getting out of his truck his entire right side became numb and he fell. It happened 2 more times. He states that he initially attributed it to his marijuana use however decided to come into the hospital for further evaluation. He was feeling dizzy and lightheaded as well. He denies any chest pain or shortness of breath. He does have some right lower extremity weakness. His initial NIH score was 0. He has no prior history of stroke. Chest x-ray reveals interstitial prominence may be due to technical factors there is borderline heart size. No airspace disease or pleural effusion is seen. Brain CT reveals no acute intracranial abnormality. CT angiography reveals atherosclerotic plaque from the bilateral carotid bifurcations resulting in moderate 60% narrowing within both the level of the carotid bifurcation. Mild 30% stenosis of the origin from the left ICA. Atherosclerotic ossification resulting in segmental moderate to severe stenosis in the bilateral cavernous and clinoid segments of the ICAs additional focal moderate to severe stenosis of A2 segment of the right ICA no large vessel intracranial arterial occlusion or aneurysmal changes seen. EKG reveals normal sinus rhythm heart rate of 93. Was admitted to the hospital for neurology consultation. White blood cell count 7.70, hemoglobin 17.8, sodium 134, potassium 4.5, BUN of 8 creatinine of 0.53, glucose 301. 10/30/2024 Patient is evaluated today in follow up on the observation unit. Had an echocardiogram revealing EF 45%. Unable to complete the bubble study. EF is improved from prior. He is also pending brain MRI. No further reports of right sided numbness. Currently on aspirin, plavix and lipitor. Hemoglobin A1C 13.1, triglycerides 13.1, BUN 12.1, creatinine 0.6. Triglyceride level 157, cholesterol 165, LDL 108, HDL 25.20. 10/31/2024 Patient is currently evaluated today in follow-up on the observation unit. He will be started on a low-dose of Lantus secondary to his elevated blood glucose. He is still pending a brain MRI. He is on aspirin Plavix and Lipitor. Neurology is following this patient closely. His right leg is no longer weak. He has no acute complaints. Will need to check with doctor office tomorrow whether there is history of A fib or not. 11/01/2024 Patient evaluated in follow up on the medical floor. No acute complaints and no new neurological deficits noted. Brain MRI reveals evolving tiny acute lacunar infarcts in the left posterior frontal lobe at the level of the centrum semiovale. No history of atrial fibrillation per PCP office. Pending vascular consultation for the carotid artery stenosis. Blood sugar remains elevated. REVIEW OF SYSTEMS: CONSTITUTIONAL: No fever, no malaise, no fatigue. HEENT: No recent visual problems or hearing problems. Denied any sore throat. CARDIOVASCULAR: No chest pain, orthopnea, PND, no palpitations, no syncope. PULMONARY: No shortness of breath, no cough, no hemoptysis. GASTROINTESTINAL: No diarrhea, no nausea, no vomiting, no abdominal pain. NEUROLOGICAL: No headaches. Reports right leg weakness; right sided numbness PHYSICAL EXAMINATION: GENERAL: The patient is alert and oriented x3, not in any acute distress. Well developed, well nourished. HEENT: Pupils are round and equally reacting to light. EOMI. No scleral icterus. No conjunctival pallor. Normocephalic, atraumatic. No pharyngeal erythema. No thyromegaly. CARDIOVASCULAR: S1 and S2 present. No murmurs, rubs, or gallops. PULMONARY: Chest is clear to auscultation, no wheezing or crackles. ABDOMEN: Soft, nontender, nondistended, normoactive bowel sounds. No palpable organomegaly. MUSCULOSKELETAL: No joint swelling or deformity. EXTREMITIES: No cyanosis, clubbing, or pedal edema. NEUROLOGICAL: Gross neurological examination did not reveal any focal deficits. Right LE weakness SKIN: No rashes. Assessment Numbness of the right side of the body as well as right leg weakness brain MRI positive for acute stroke left posterior frontal lobe. Carotid artery disease Diabetes Mellitus type 2, uncontrolled hgb A1C 13.1. Questionable history of afib Chronic systolic heart failure with no acute exacerbation Hyponatremia Hyperlipidemia Morbid obesity Marijuana use DVT prophylaxis: Subcu heparin Full Code Plan Neurology consultation Continue stroke work up, Lipid panel, TSH, Brain MRI reviewed. Resume home medications Lipitor has been increased to 40 mg daily, continue aspirin 81 mg daily, continue plavix 75 mg daily Add accuchecks ACHS, humalog sliding scale insulin Add scheduled insulin and add lantus at Vascular consultation The impression and plan of care has been dictated by Aminata Harrison, Nurse Practitioner as directed. Dr. Lauren MD I have performed a history and physical examination and medical decision making of this patient, discussed the same with the dictator, and agree with the dictators assessment and plan as written, documented as a scribe. Based on total visit time, I have performed more than 50% of this visit. Objective - Vital Signs Vital signs: Vital Signs Temp 98.4 F 11/01/24 14:56 Pulse 68 11/01/24 14:56 Resp 16 11/01/24 14:56 BP 122/70 11/01/24 14:56 Pulse Ox 96 11/01/24 14:56 FiO2 Intake & Output 11/01/24 11/01/24 11/02/24 06:59 18:59 06:59 Intake Total 236 Balance 236 Weight 151.953 kg Intake: Oral 236 Other: # Voids 2 3 - Labs CBC & Chem 7: 10/29/24 10:19 10/30/24 05:33 Labs: Abnormal Lab Results - Last 24 Hours (Table) 11/01/24 11/01/24 11/01/24 Range/Units 05:44 12:07 17:11 POC Glucose (mg/dL) 265 H 355 H 296 H (70-110) mg/dL Assessment and Plan Time with Patient: Less than 30
[2024-11-01] MEDS: INSULIN GLARGINE (LANTUS) 100 UNIT/ML SYR SQ SCH (21:15)
[2024-11-02 05:44] LABS: Glucose,Whole Blood 232 mg/dL (70-110)
[2024-11-02] MEDS: INSULIN GLARGINE (LANTUS) 100 UNIT/ML SYR SQ SCH (06:32)
[2024-11-02] MEDS: INSULIN LISPRO (HumaLOG) 100 UNIT/ML 10 mL VL SQ SCH (09:01)
--- NOTE | 2024-11-02 09:53 | P.PN ---
Subjective Progress Note Date: 11/02/24 Principal diagnosis: Acute stroke Patient seen and examined today as a follow-up. He denies any new focal deficits. Denies any shortness of breath or chest pain. No extremity weakness or difficulty speaking. No vision loss or difficulty swallowing. Patient has peripheral neuropathy secondary to has diabetes, states worse on right than left. Currently has a cane at the bedside which he states has been helping. Objective - Vital Signs Vital signs: Vital Signs Temp 98.5 F 11/02/24 02:09 Pulse 75 11/02/24 02:09 Resp 16 11/02/24 02:09 BP 162/90 11/02/24 02:09 Pulse Ox 95 11/02/24 02:09 FiO2 Intake & Output 11/01/24 11/02/24 11/02/24 18:59 06:59 18:59 Intake Total 236 Balance 236 Weight 151.953 kg Intake: Oral 236 Other: # Voids 3 1 - Exam General appearance: The patient is alert, oriented, appears in no acute distress. Morbidly obese. HET: Head is normocephalic and atraumatic. Pupils are equal and reactive. Neck: Supple. Heart: Regular. Lungs: Equal expansion, normal respiratory effort. Abdomen: Soft, nontender, nondistended. Extremities: Normal skin color and turgor. Neurological: No focal deficits. Strength and sensation are grossly intact. - Labs CBC & Chem 7: 10/29/24 10:19 10/30/24 05:33 Labs: Abnormal Lab Results - Last 24 Hours (Table) 11/01/24 11/01/24 11/01/24 Range/Units 12:07 17:11 20:29 POC Glucose (mg/dL) 355 H 296 H 198 H (70-110) mg/dL 11/02/24 Range/Units 05:43 POC Glucose (mg/dL) 232 H (70-110) mg/dL Assessment and Plan Assessment: 1. Acute lacunar infarcts in the left posterior frontal lobe 2. Left ICA stenosis at 30% 3. Moderate stenosis bilateral distal common carotid arteries 4. Moderate to severe stenosis in bilateral cavernous and glenoid segments of the ICAs per CTA head with additional focal moderate to severe stenosis of A2 segment right DOC 5. Diabetes mellitus 6. Hypertension 7. Morbid obesity 8. Reported history per chart atrial fibrillation however patient does not recall any diagnosis but did recall following with cardiology up until 1-2 2 years ago Plan: 1. Recommend strict glycemic control 2. Continue aspirin 81 mg daily, Plavix and statin as ordered 3. Physical therapy/Occupational Therapy 5. CTA head and neck independently reviewed, agree with approximately 30% stenosis of the left ICA. Clinoid stenosis not appreciated however would r ecommend based on report consultation/referral to interventional neurologist for further evaluation and recommendation. There is no indication/recommendation for any vascular surgical intervention for left ICA stenosis less than 50%. Consider cardiology consultation/workup. Will defer to primary medical team. Continue with recommendations from neurology. Patient was given our card, can follow-up with vascular surgery for continued carotid surveillance. Thank you for this consultation, we will sign off at this time. The impression and plan of care has been dictated as directed. I performed a history and examination of this patient, discussed the same with the dictator. I agree with the dictator's note ,documented as a scribe. Any additional findings or plans will be noted.
[2024-11-02 11:41] LABS: Glucose,Whole Blood 271 mg/dL (70-110)
[2024-11-02] MEDS: ceFAZolin 2 GM in DEXTROSE 5% IN WATER 50 ML IVPB ONE (11:47)
[2024-11-02 15:44] VITALS: BP 127/77; PULSE 87; RESP 16; TEMP 98.4
--- NOTE | 2024-11-06 20:56 | P.DS ---
Providers Date of admission: 10/29/24 14:24 Attending physician: Vic Hernandez MD Consults: 10/29/24 14:23 Consult Physician Routine Consulting Provider: Ramiro Coronado Consult Reason/Comments: right sided weakness, possible tia Do you want consulting provider notified?: Yes 11/01/24 13:07 Consult Physician Urgent Consulting Provider: Thomas Vargas Consult Reason/Comments: carotid stenosis with stroke Do you want consulting provider notified?: Yes Primary care physician: Hayes Genao Hospital Course: Final Diagnosis Numbness of the right side of the body as well as right leg weakness brain MRI positive for acute ischemic lacunar infarct left posterior frontal lobe. Carotid artery disease Left ICA stenosis at 30% Moderate stenosis bilateral distal common carotid arteries Moderate to severe stenosis in bilateral cavernous and glenoid segments of the ICAs per CTA head with additional focal moderate to severe stenosis of A2 segment right DOC Diabetes Mellitus type 2, uncontrolled hgb A1C 13.1. Peripheral diabetic neuropathy Chronic systolic heart failure with no acute exacerbation Hyponatremia Hyperlipidemia Morbid obesity Marijuana use Reported history of atrial fibrillation per patient chart however patient denies and no history documented from cardiology office. Patient is discharged with event monitor. Discharge Disposition Stable for discharge home. Overall guarded prognosis and patient has multiple follow ups. Patient to wear event monitor for 2 weeks on discharge and follow up with cardiology. Patient advised to follow up with neuro interventionalist on discharge. He will follow up with vascular surgery for monitoring of the carotid stenosis. Patient to improve glycemic control and he is understanding of this. Has been on injectible medications in the past and has been discharge with lantus, humalog as well as metformin. Recommend to follow back up with Dr Corado with endocrinology. Follow up with PCP Kaci Ray 1 to 2 days. Total time taken in discharge planning greater than 35 minutes. Hospital Course This is a pleasant 59-year-old male with medical history significant for hypertension, hyperlipidemia, diabetes mellitus type 2, marijuana use. Patient is a non-smoker. He comes into the hospital with a 3-day complaint of intermittent numbness affecting the right upper lower extremity. Additionally he states that he is having right leg weakness that began 3 days ago as well. He states that this first happened when he was getting out of his truck his entire right side became numb and he fell. It happened 2 more times. He states that he initially attributed it to his marijuana use however decided to come into the hospital for further evaluation. He was feeling dizzy and lightheaded as well. He denies any chest pain or shortness of breath. He does have some right lower extremity weakness. His initial NIH score was 0. He has no prior history of stroke. Chest x-ray reveals interstitial prominence may be due to technical factors there is borderline heart size. No airspace disease or pleural effusion is seen. Brain CT reveals no acute intracranial abnormality. CT angiography reveals atherosclerotic plaque from the bilateral carotid bifurcations resulting in moderate 60% narrowing within both the level of the carotid bifurcation. Mild 30% stenosis of the origin from the left ICA. Atherosclerotic ossification resulting in segmental moderate to severe stenosis in the bilateral cavernous and clinoid segments of the ICAs additional focal moderate to severe stenosis of A2 segment of the right ICA no large vessel i ntracranial arterial occlusion or aneurysmal changes seen. EKG reveals normal sinus rhythm heart rate of 93. Was admitted to the hospital for neurology consultation. White blood cell count 7.70, hemoglobin 17.8, sodium 134, potassium 4.5, BUN of 8 creatinine of 0.53, glucose 301. Had an echocardiogram revealing EF 45%. Unable to complete the bubble study. EF is improved from prior. Brain MRI reveals evolving tiny acute lacunar infarcts in the left posterior frontal lobe at the level of the centrum semiovale. No history of atrial fibrillation per PCP office and also reports obtained from cardiology office and no history of afib documented as well. Patient denies history of atrial fibrillation or other cardiac arrhythmia. He was evaluated by neurology and vascular surgery. Patient will discharge on aspirin and plavix for 21 days than stop the plavix and continue on aspirin. He is on high intensity statin. Discussed blood glucose and hemoglobin A1C. Patient will be discharged with lant us and humalog as well as metformin. He was noted to have infected IV site of the left AC and was given script for keflex as well. Patient has no neurological deficits. He has no shortness of breath or chest pain. has been up ambulating without difficulty. He has no focal weakness. Please see medication reconciliation for a list of current medications. Thank you for allowing us to participate in the care of this patient. The impression and plan of care has been dictated by Aminata Harrison, Nurse Practitioner as directed. Dr. Lauren MD I have performed a history and physical examination and medical decision making of this patient, discussed the same with the dictator, and agree with the dictators assessment and plan as written, documented as a scribe. Based on total visit time, I have performed more than 50% of this visit. Patient Condition at Discharge: Stable Plan - Discharge Summary Discharge Rx Participant: Yes New Discharge Prescriptions: New Insulin Lispro [humaLOG Kwikpen] 5 unit SQ AC-TID #5 each Insulin Glargine,Hum.rec.anlog [Lantus Solostar Pen] 40 units SQ HS #5 each Atorvastatin [Lipitor] 80 mg PO HS #30 tab Pen Needle, Diabetic [Pentips] 1 each MC HS #120 each metFORMIN HCL [Glucophage] 500 mg PO BID #60 tab Cephalexin [Keflex] 500 mg PO Q6HR 7 Days #28 cap Losartan [Cozaar] 50 mg PO DAILY #30 tab Clopidogrel [Plavix] 75 mg PO DAILY #21 tab Continue Metoprolol Succinate (ER) [Toprol XL] 25 mg PO DAILY 30 Days #30 tab Ergocalciferol [Vitamin D2 (1250 Mcg = 74978 Iu)] 1,250 mcg PO MO Gabapentin [Neurontin] 300 mg PO DAILY PRN PRN Reason: Pain Aspirin EC [Ecotrin Low Dose] 81 mg PO DAILY Spironolactone [Aldactone] 25 mg PO DAILY 30 Days #30 tab Furosemide [Lasix] 20 mg PO DAILY Discontinued Atorvastatin [Lipitor] 20 mg PO DAILY Discharge Medication List Aspirin EC [Ecotrin Low Dose] 81 mg PO DAILY 06/30/24 [History] Gabapentin [Neurontin] 300 mg PO DAILY PRN 06/30/24 [History] Metoprolol Succinate (ER) [Toprol XL] 25 mg PO DAILY 30 Days #30 tab 07/04/24 [Rx] Spironolactone [Aldactone] 25 mg PO DAILY 30 Days #30 tab 07/04/24 [Rx] Ergocalciferol [Vitamin D2 (1250 Mcg = 09227 Iu)] 1,250 mcg PO MO 10/29/24 [History] Furosemide [Lasix] 20 mg PO DAILY 10/29/24 [History] Atorvastatin [Lipitor] 80 mg PO HS #30 tab 11/02/24 [Rx] Cephalexin [Keflex] 500 mg PO Q6HR 7 Days #28 cap 06/03/25 [Rx] Clopidogrel [Plavix] 75 mg PO DAILY #21 tab 11/02/24 [Rx] Insulin Glargine,Hum.rec.anlog [Lantus Solostar Pen] 40 units SQ HS #5 each 11/02/24 [Rx] Insulin Lispro [humaLOG Kwikpen] 5 unit SQ AC-TID #5 each 11/02/24 [Rx] Losartan [Cozaar] 50 mg PO DAILY #30 tab 11/02/24 [Rx] Pen Needle, Diabetic [Pentips] 1 each HS #120 each 11/02/24 [Rx] metFORMIN HCL [Glucophage] 500 mg PO BID #60 tab 11/02/24 [Rx] Follow up Appointment(s)/Referral(s): Haider Almodovar MD [STAFF PHYSICIAN] - 11/09/24 9:45 am Patricia Hutchinson NPC [REFERRING] - 1-2 Days Ricci Corado MD [REFERRING] - 1 Week Thomas Vargas DO [Doctor of Osteopathic Medicine] - 11/25/24 10:30 [facility] - 1-2 Days Angel Mak MD [STAFF PHYSICIAN] - 10 Days ([facility] with recent stroke) Patient Instructions/Handouts: Ischemic Stroke (DC) Activity/Diet/Wound Care/Special Instructions: Continue aspirin and plavix together for 21 days then stop the plavix and continue on aspirin 81 mg daily Continue metformin twice day Humalog 5 units with meal and 40 units of lantus at bed time Event monitor to be worn for 2 weeks to rule out cardiac arrhythmia Follow up with vascular and neuro interventionalist on discharge Complete oral keflex therapy for 7 days for the wound in the left AC. If redness not improving, increased drainage, fever, come to the ER for further evaluation. Discharge Disposition: HOME SELF-CARE
== END 2024-11-02 18:02 | disposition home or self-care (01) | DRG 45 ==
LOC: EC 09:14 → 6NMEDSUR 14:24 → OBSVTOIN 14:24 → 6NMEDSUR 15:44
PROVIDERS: ADMIT Internal Medicine; ATTEND Internal Medicine
DX: I63.81 Other cerebral infarction due to occlusion or stenosis of small artery (principal); E11.42 Type 2 diabetes mellitus with diabetic polyneuropathy; G81.91 Hemiplegia, unspecified affecting right dominant side; I50.22 Chronic systolic (congestive) heart failure; I11.0 Hypertensive heart disease with heart failure; E66.01 Morbid (severe) obesity due to excess calories; E78.5 Hyperlipidemia, unspecified; E87.1 Hypo-osmolality and hyponatremia; I67.2 Cerebral atherosclerosis; Z68.43 Body mass index [BMI] 50.0-59.9, adult; Z79.82 Long term (current) use of aspirin; Z79.84 Long term (current) use of oral hypoglycemic drugs; Z79.899 Other long term (current) drug therapy; Z91.148 Patient's other noncompliance with medication regimen for other reason; Z79.02 Long term (current) use of antithrombotics/antiplatelets
CPT/HCPCS: 36415; 70450; 70496; 70498; 70551; 71046; 80048; 80053; 80061; 82550; 83036; 84443; 84484; 85025; 85610; 85730; 93005; 93270; 93308; 94760; 99285